=== PATIENT | female | born 1955 | race Caucasian/White ===

== ENCOUNTER 2019-08-13 12:19 | Emergency (ER) | payer MEDICARE, SELFPAY ==
--- NOTE | ~2019-08-13 | XR_ITS ---
EXAMINATION: XR femur RT min 2V DATE: 08/13/2019 13:08 INDICATION: Right thigh pain. TECHNIQUE: 2 views of right femur on 4 radiographs were obtained. COMPARISON: None. FINDINGS: Bone alignment is normal. No fracture. There is mild osteoarthritis of patellofemoral moira rtment of the knee. IMPRESSION: 1. No fracture. 2. Mild right knee osteoarthritis. Reviewed, dictated and finalized at location A.
--- NOTE | ~2019-08-13 | XR_ITS ---
EXAMINATION: XR pelvis 1-2V DATE: 08/13/2019 13:08 INDICATION: Right hip pain. TECHNIQUE: An anteroposterior view of the pelvis was obtained. COMPARISON: None. FINDINGS: Bone alignment is normal. No fracture. There is mild lumbar spondylosis. The hip joint spac es are normal. IMPRESSION: 1. No fracture. Reviewed, dictated and finalized at location A. IMPRESSION: 1. No fracture.
[2019-08-13 12:21] VITALS: BP 146/57; PULSE 81; RESP 16; TEMP 36.8; O2SAT 99
[2019-08-13 12:25] VITALS: BP 146/57; O2SAT 99
[2019-08-13 12:26] VITALS: PULSE 81; RESP 17; O2SAT 100
--- NOTE | 2019-08-13 12:40 | ED.GENADULT ---
HPI - General Adult General Chief complaint: Fall Stated complaint: R LEG INJURY History of Present Illness HPI narrative: Patient is a 64 y/o female complaining of right thigh after a fall approximately 30 minutes ago. She states that she fell off a landscape structure. She denies hitting her head or LOC. She has no neck pain, back pain, chest pain or abdominal pain. She describes her pain as sharp and rates it as 8/10. There is no pain radiation. Related Data Allergies Allergy/AdvReac Type Severity Reaction Status Date / Time Penicillins Allergy Unknown Verified 01/05/17 13:09 Review of Systems Constitutional: Constitutional: Denies chills, Denies fever(s), Denies headache(s) and Denies weakness Eyes: Eyes: Denies blurry vision ENT: Denies headache(s) and Denies neck pain Cardiovascular: Cardiovascular: Denies chest pain and Denies dyspnea Respiratory: Respiratory: Denies cough and Denies dyspnea Gastrointestinal: Gastrointestinal: Denies abdominal pain, Denies diarrhea, Denies nausea and Denies vomiting Genitourinary: Genitourinary: Denies hematuria and Denies dysuria Musculoskeletal: Musculoskeletal: Reports as per HPI, Denies back pain and Denies neck pain Comments: right thigh/buttock pain Neurologic: Denies headache(s) and Denies weakness [facility] Family History Family History Grandparent Family history of lung cancer Diabetes mellitus Father Family history of coronary artery disease Cerebrovascular accident Social History Social History Smoking status: Smoker, status unknown Alcohol intake: current Gender identity (if verbalized by the patient): Female Sexual Orientation (if Verbalized by the Patient): Lesbian, [place], or Homosexual Exam Const: General: no acute distress and well developed Orientation/consciousness: oriented to person, oriented to place, oriented to time and patient oriented x3 HENMT: Head: normocephalic Ears: external ears normal General nose exam: Normal external nose present Eyes: General: appearance normal, both eyes and all related structures Conjunctivae: conjunctivae normal Neck: Neck: normal visual inspection and full ROM Chest: Chest palpation & inspection: normal inspection of the chest and no tenderness Resp: Effort & Inspection: normal respiratory effort Auscultation: clear to auscultation bilaterally Cardio: Rate: regular rate Rhythm: regular rhythm GI: GI Palp: No abdominal tenderness and Yes Soft to palpation Skin: General skin exam: normal color and turgor normal Neuro: General: oriented to person, oriented to place, oriented to time and patient oriented x3 Cognition (Neuro): normal cognition Extrem: General: normal to inspection, full ROM and no pedal edema Right lower extremity: hip/thigh Details: tenderness (right thigh) Psych: Appearance: grossly normal Mental Status: mental status grossly normal Affect: normal affect Course Vital Signs Vital signs: Vital Signs Temperature 36.8 C 08/13/19 12:21 Pulse Rate 81 08/13/19 12:21 Respiratory Rate 16 08/13/19 12:21 Blood Pressure 146/57 H 08/13/19 12:21 Pulse Oximetry 99 08/13/19 12:21 Temperature 36.6 C 08/13/19 14:31 Pulse Rate 86 08/13/19 14:31 Respiratory Rate 16 08/13/19 14:31 Blood Pressure 120/53 L 08/13/19 14:31 Pulse Oximetry 100 08/13/19 14:31 Medical Decision Making Vital Signs Vital Signs: Vital Signs Temperature 36.8 C 08/13/19 12:21 Pulse Rate 81 08/13/19 12:21 Respiratory Rate 16 08/13/19 12:21 Blood Pressure 146/57 H 08/13/19 12:21 Pulse Oximetry 99 08/13/19 12:21 Temperature 36.6 C 08/13/19 14:31 Pulse Rate 86 08/13/19 14:31 Respiratory Rate 16 08/13/19 14:31 Blood Pressure 120/53 L 08/13/19 14:31 Pulse Oximetry 100 08/13/19 14:31 Discharge Plan Discharge Clinical Impression: Contusio
[2019-08-13 14:31] VITALS: BP 120/53; PULSE 86; RESP 16; TEMP 36.6; O2SAT 100
== END 2019-08-13 14:33 | disposition home or self-care (01) ==
PROVIDERS: Emergency Provider Emergency Medicine; PCP Family Medicine
DX: S70.11XA Contusion of right thigh, initial encounter (principal); W17.89XA Other fall from one level to another, initial encounter
CPT/HCPCS: 72170; 73552; 99284

== ENCOUNTER 2019-08-17 09:37 | Outpatient (CLI) | payer MEDICARE, SELFPAY ==
--- NOTE | ~2019-08-17 | MR_ITS ---
EXAMINATION: MR femur RT wo con DATE: 08/17/2019 10:43 INDICATION: Right thigh injury and pain. TECHNIQUE: Magnetic resonance imaging (MRI) of the right thigh was performed without intravenous cont rast. Sequences included axial, coronal, and sagittal STIR FSE and T1-weighted FSE. COMPARISON: Right femur radiographs 08/13/2019 FINDINGS: There is a near complete tear of the right hamstring tendon origin with hematoma. The torn tendon ends are retracted 4 cm from the ischial tuberosity. The hematoma abuts the sciatic nerve. Bon e alignment is normal. No fracture. Bone marrow signal intensity is normal. IMPRESSION: 1. Near complete tear of the right hamstring tendon origin. Reviewed, dictated and finalized at location A.
== END 2019-08-17 09:38 | disposition home or self-care (01) ==
LOC: ANHIMG 09:41
PROVIDERS: PCP Family Medicine; Visit Provider Physician Assistant Medical
DX: S79.921A Unspecified injury of right thigh, initial encounter (principal); X58.XXXA Exposure to other specified factors, initial encounter
CPT/HCPCS: 73718

== ENCOUNTER 2020-06-30 06:58 | Outpatient (CLI) | payer MEDICARE, SELFPAY ==
--- NOTE | ~2020-06-30 | MR_ITS ---
EXAMINATION: MR humerus RT wo con DATE: 06/30/2020 14:23 INDICATION: Right upper arm pain and limited range of motion post fall. TECHNIQUE: Magnetic resonance imaging (MRI) of the right upper arm/humerus was performed without intr avenous contrast. A marker was placed over the region of concern. Sequences included axial, sagittal and coronal T1-weighted FSE and fluid sensitive FSE STIR. COMPARISON: None. FINDINGS: The marker indicating the region of maximal pain is located at the lateral upper arm at the level of the distal insertion of the deltoid muscle. Bone marrow signal is normal throughout with no fracture, reactive edema or pathologic marrow replacing process. Mild to moderate osteoarthritis at the right acromioclavicular joint. Glenohumeral joint space appears normal with physiologic amount fluid. Long head biceps tendon and glenoid labrum appear unremarkable although evaluation is significantly more l imited on the larger field of view images relative to a standard MRI of the right shoulder. Musculatu re and neurovascular structures of the right upper arm appear normal. No abnormal masses or fluid col lections. No pathologically enlarged right axillary lymphadenopathy. IMPRESSION: 1. Unremarkable MRI of the right upper arm. No etiology identified for the reported pain at the later al mid to upper arm. Reviewed, dictated and finalized at location A. IMPRESSION: 1. Unremarkable MRI of the right upper arm. No etiology identified for the repo rted pain at the lateral mid to upper arm.
--- NOTE | ~2020-06-30 | US_ITS ---
EXAMINATION: US carotid duplex BI DATE: 06/30/2020 13:27 INDICATION: Dizziness and giddiness TECHNIQUE: Grayscale, color Doppler, and pulsed Doppler images of the cervical carotid arteries were obtained. The degree of vessel stenosis is placed in one of the following categories: normal, <50%, 5 0-69%, >=70% but less than near-occlusion, near-occlusion, or total occlusion. Note that percent sten osis relative to normal distal artery lumen diameter is indirectly measured from velocity measurement s as described by Felipe, et al. Radiology 2003; 229:340-346. Notes: Normal: Peak systolic velocity <125 centimeters/sec and no plaque <50%. Peak systolic velocity <125 ( EDV <40; ICA/CCA PSV ratio <2.0; used these factors only a tandem lesions or low cardiac output or co ntralateral disease) 50-69 %: PSV 125-230 (EDV 40-100; ratio 2-4) >= 70% but less than near occlusion: PSV greater than 230 (EDV > 100; ratio> 4.0) Near Occlusion: PSV that is variable; markedly narrowed lumen Occlusion: Absent flow on color/spectral Doppler and no lumen on talley scale. COMPARISON: None. FINDINGS: RIGHT: The right common carotid artery (CCA) peak systolic velocity (PSV) is 84 cm/s. The right internal car otid artery (ICA) PSV is 97 cm/s. The right ICA end-diastolic velocity (EDV) is 22 cm/s. The right IC A/CCA PSV ratio is 1.15. The external carotid artery (ECA) PSV is 127 cm/s. There is antegrade flow i n the right vertebral artery. LEFT: The left CCA PSV is 70 cm/s. The left ICA PSV is 182 cm/s. The left ICA EDV is 31 cm/s. The left ICA/ CCA PSV ratio is 2.6. The ECA PSV is 147 cm/s. There is antegrade flow in the left vertebral artery. IMPRESSION: 1. Less than 50% stenosis in the right internal carotid artery by sonographic criteria. 2. 50-69% stenosis in the left internal carotid artery by sonographic criteria. Reviewed, dictated and finalized at location A. IMPRESSION: 1. Less than 50% stenosis in the right internal carotid artery by sonographic c riteria. 2. 50-69% stenosis in the left internal carotid artery by sonographic criteria.
[2020-06-30 07:38] LABS: Basophils Absolute Auto 0.1 K/mm3 (0.0-0.1); Basophils Percent Auto 0.7 % (0.2-1.2); Eosinophils Absolute Auto 0.3 K/mm3 (0-0.3); Eosinophils Percent Auto 3.7 % (0-4.4); Hematocrit 32.8 % (37.0-47.0); Hemoglobin 10.4 g/dL (12.0-15.0); Immature Granulocyte Absolute 0.01 K/mm3 (0.00-0.031); Immature Granulocyte Percent A 0.1 % (0-0.5); Lymphocytes Absolute Auto 2.27 K/mm3 (0.9-3.2); Lymphocytes Percent Auto 27.9 % (18.3-44.2); Mean Corpuscular HGB Conc 31.7 g/dl (32-36); Mean Corpuscular Hemoglobin 25.1 pg (26-34); Mean Corpuscular Volume 79.2 fl (80-100); Mean Platelet Volume 10.4 fl (7.4-10.4); Monocytes Absolute Auto 0.6 K/mm3 (0.1-0.6); Monocytes Percent Auto 6.9 % (2.6-8.5); Neutrophils Absolute Auto 4.9 K/mm3 (1.3-6.7); Neutrophils Percent Auto 60.7 % (45.5-73.1); Platelet Count Result 202 k/mm3 (150-375); Red Blood Count 4.14 M/mm3 (4.2-5.4); Red Cell Distribution Width 14.8 % (11.5-14.5); White Blood Count 8.1 K/mm3 (4.5-10.0)
[2020-06-30 07:56] LABS: Alanine Aminotransferase 45 U/L (4-35); Albumin Level 4.6 g/dL (3.5-5.1); Alkaline Phosphatase 62 U/L (38-126); Anion Gap 7 mmol/L (8-16); Aspartate Amino Transferase 69 U/L (14-36); Bilirubin,Total 0.2 mg/dL (0.2-1.3); Blood Urea Nitrogen 18 mg/dL (7-17); Calcium 9.4 mg/dL (8.4-10.2); Carbon Dioxide 28 mmol/L (22-30); Chloride 103 mmol/L (98-107); Cholesterol 98 mg/dL (0-200); Estimated Glomerular Filt Rate 41; Glucose 120 mg/dL (65-105); HDL Direct 43 mg/dL; Sodium 138 mmol/L (137-145); Triglycerides 110 mg/dL (<150)
[2020-06-30 08:01] LABS: LDL Cholesterol Direct 34 mg/dL
[2020-06-30 08:14] LABS: Creatinine Urine 68.6 mg/dL
[2020-06-30 08:18] LABS: Microalbumin Urine Random 77.5 mg/L (0-16.7)
== END 2020-06-30 06:59 | disposition home or self-care (01) ==
PROVIDERS: PCP Family Medicine; Visit Provider Physician Assistant Medical
DX: E11.65 Type 2 diabetes mellitus with hyperglycemia (principal); R42 Dizziness and giddiness; E78.2 Mixed hyperlipidemia; Z79.4 Long term (current) use of insulin; G89.29 Other chronic pain; M79.601 Pain in right arm
CPT/HCPCS: 36415; 73218; 80053; 80061; 82043; 84443; 85025; 93880

== ENCOUNTER 2020-07-22 07:41 | Outpatient (CLI) | payer MEDICARE, SELFPAY ==
--- NOTE | ~2020-07-22 | US_ITS ---
EXAMINATION: US abdomen complete DATE: 07/22/2020 08:31 INDICATION: Elevated liver function tests TECHNIQUE: Multiple grayscale and Doppler ultrasound images of the abdomen were obtained. COMPARISON: None available FINDINGS: Bowel gas obscures visualization of the pancreas. The visualized portions of the pancreas a re unremarkable. The liver is normal with normal echogenicity and echotexture. No surface nodularity. Normal hepatopetal flow in the main portal vein. The gallbladder is surgically absent. The normal co mmon bile duct measures 4 mm. There was no sonographic Nino sign. The visualized portions of the ao rta and inferior vena cava are normal. The right kidney measures 10.6 x 4.3 x 5.6 cm. The left kidney measures 11.4 x 5.5 x 5.2 cm. The kidn eys demonstrate normal parenchymal echogenicity. There is no hydronephrosis. The spleen is normal in appearance and measures 9.8 cm. IMPRESSION: 1. No sonographic correlate for the patient's symptoms. Reviewed, dictated and finalized at location A.
[2020-07-22 08:12] LABS: Basophils Percent Auto 0.6 % (0.2-1.2); Eosinophils Absolute Auto 0.3 K/mm3 (0-0.3); Eosinophils Percent Auto 4.6 % (0-4.4); Hematocrit 30.6 % (37.0-47.0); Hemoglobin 9.4 g/dL (12.0-15.0); Immature Granulocyte Absolute 0.01 K/mm3 (0.00-0.031); Immature Granulocyte Percent A 0.2 % (0-0.5); Lymphocytes Absolute Auto 1.75 K/mm3 (0.9-3.2); Lymphocytes Percent Auto 27.5 % (18.3-44.2); Mean Corpuscular HGB Conc 30.7 g/dl (32-36); Mean Corpuscular Hemoglobin 25.1 pg (26-34); Mean Corpuscular Volume 81.6 fl (80-100); Mean Platelet Volume 10.1 fl (7.4-10.4); Monocytes Absolute Auto 0.6 K/mm3 (0.1-0.6); Monocytes Percent Auto 9.1 % (2.6-8.5); Neutrophils Absolute Auto 3.7 K/mm3 (1.3-6.7); Platelet Count Result 153 k/mm3 (150-375); Red Blood Count 3.75 M/mm3 (4.2-5.4); Red Cell Distribution Width 15.1 % (11.5-14.5); White Blood Count 6.4 K/mm3 (4.5-10.0)
[2020-07-22 08:29] LABS: Anion Gap 7 mmol/L (8-16); Blood Urea Nitrogen 26 mg/dL (7-17); Calcium 9.6 mg/dL (8.4-10.2); Carbon Dioxide 26 mmol/L (22-30); Chloride 103 mmol/L (98-107); Estimated Glomerular Filt Rate 41; Glucose 121 mg/dL (65-105); Potassium 5.4 mmol/L (3.4-5.0); Sodium 136 mmol/L (137-145)
[2020-07-22 16:21] LABS: Iron 37 ug/dL (37-170)
[2020-07-22 16:30] LABS: Percent Iron Saturation 7 % (20-50)
== END 2020-07-22 07:42 | disposition home or self-care (01) ==
PROVIDERS: PCP Family Medicine; Visit Provider Physician Assistant Medical
DX: R79.89 Other specified abnormal findings of blood chemistry (principal); D64.9 Anemia, unspecified; N28.9 Disorder of kidney and ureter, unspecified
CPT/HCPCS: 36415; 76700; 80048; 83540; 83550; 85025

== ENCOUNTER 2020-08-18 07:56 | Outpatient (CLI) | payer MEDICARE, SELFPAY ==
[2020-08-18 08:19] LABS: Basophils Percent Auto 0.6 % (0.2-1.2); Eosinophils Absolute Auto 0.3 K/mm3 (0-0.3); Eosinophils Percent Auto 4.8 % (0-4.4); Hematocrit 32.4 % (37.0-47.0); Hemoglobin 9.9 g/dL (12.0-15.0); Immature Granulocyte Absolute 0.02 K/mm3 (0.00-0.031); Immature Granulocyte Percent A 0.3 % (0-0.5); Lymphocytes Absolute Auto 1.52 K/mm3 (0.9-3.2); Lymphocytes Percent Auto 22.6 % (18.3-44.2); Mean Corpuscular HGB Conc 30.6 g/dl (32-36); Mean Corpuscular Hemoglobin 25.3 pg (26-34); Mean Corpuscular Volume 82.7 fl (80-100); Mean Platelet Volume 10.7 fl (7.4-10.4); Monocytes Absolute Auto 0.5 K/mm3 (0.1-0.6); Neutrophils Absolute Auto 4.3 K/mm3 (1.3-6.7); Neutrophils Percent Auto 63.7 % (45.5-73.1); Platelet Count Result 182 k/mm3 (150-375); Red Blood Count 3.92 M/mm3 (4.2-5.4); Red Cell Distribution Width 15.5 % (11.5-14.5); White Blood Count 6.7 K/mm3 (4.5-10.0)
[2020-08-18 08:33] LABS: Anion Gap 12 mmol/L (8-16); Blood Urea Nitrogen 13 mg/dL (7-17); Calcium 9.8 mg/dL (8.4-10.2); Carbon Dioxide 24 mmol/L (22-30); Chloride 101 mmol/L (98-107); Estimated Glomerular Filt Rate 56; Glucose 111 mg/dL (65-105); Sodium 137 mmol/L (137-145)
== END 2020-08-18 07:57 | disposition home or self-care (01) ==
PROVIDERS: PCP Family Medicine; Visit Provider Physician Assistant Medical
DX: N18.30 Chronic kidney disease, stage 3 unspecified (principal); D64.9 Anemia, unspecified
CPT/HCPCS: 36415; 80048; 85025

== ENCOUNTER → 2021-03-26 01:20 | Outpatient (CLI) | payer MEDICARE, SELFPAY ==
[2021-03-26 18:23] LABS: SARS-CoV-2 RNA PCR Negative
== END ==
PROVIDERS: PCP Family Medicine; Visit Provider Physician Assistant Medical
DX: R09.89 Other specified symptoms and signs involving the circulatory and respiratory systems (principal); Z20.822 Contact with and (suspected) exposure to COVID-19
CPT/HCPCS: C9803; U0003; U0005

== ENCOUNTER → 2021-11-20 01:47 | Outpatient (CLI) | payer MEDICARE, SELFPAY ==
[2021-11-20 11:56] LABS: SARS-CoV-2 RNA PCR Negative
== END ==
PROVIDERS: PCP Physician Assistant Medical; Visit Provider Physician Assistant Medical
DX: R68.89 Other general symptoms and signs (principal); Z20.822 Contact with and (suspected) exposure to COVID-19
CPT/HCPCS: C9803; U0003; U0005

== ENCOUNTER 2022-01-05 06:50 | Outpatient (CLI) | payer MEDICARE, SELFPAY ==
--- NOTE | ~2022-01-05 | XR_ITS ---
EXAMINATION: XR chest 2V DATE: 01/05/2022 07:16 INDICATION: Productive cough TECHNIQUE: PA and lateral views of the chest were obtained. COMPARISON: Chest radiograph dated 10/09/[address] abdomen and pelvis 01/05/2022 FINDINGS: The lungs remain clear with no focal airspace opacities, pulmonary edema, pleural effusion or pneumot horax. The cardiomediastinal silhouette is normal. Unchanged sclerotic bone island at the anterior le ft sixth rib. Cholecystectomy clips in right upper quadrant. Mild thoracic spondylosis. IMPRESSION: 1. No acute cardiopulmonary disease. Reviewed, dictated and finalized at location A. RVISOR QUILTING
[2022-01-05 07:12] LABS: Basophils Percent Auto 0.5 % (0.2-1.2); Eosinophils Absolute Auto 0.1 K/mm3 (0-0.3); Eosinophils Percent Auto 0.9 % (0-4.4); Immature Granulocyte Absolute 0.02 K/mm3 (0.00-0.031); Immature Granulocyte Percent A 0.3 % (0-0.5); Lymphocytes Percent Auto 15.7 % (18.3-44.2); Mean Corpuscular HGB Conc 27.7 g/dl (32-36); Mean Corpuscular Hemoglobin 18.4 pg (26-34); Mean Corpuscular Volume 66.4 fl (80-100); Mean Platelet Volume 9.9 fl (7.4-10.4); Monocytes Absolute Auto 0.7 K/mm3 (0.1-0.6); Neutrophils Absolute Auto 4.1 K/mm3 (1.3-6.7); Neutrophils Percent Auto 70.6 % (45.5-73.1); Platelet Count Result 148 k/mm3 (150-375); Red Blood Count 2.83 M/mm3 (4.2-5.4); Red Cell Distribution Width 20.1 % (11.5-14.5); White Blood Count 5.8 K/mm3 (4.5-10.0)
[2022-01-05 07:22] LABS: Alanine Aminotransferase 22 U/L (6-35); Albumin Level 4.1 g/dL (3.5-5.1); Alkaline Phosphatase 65 U/L (38-126); Anion Gap 12 mmol/L (8-16); Aspartate Amino Transferase 36 U/L (14-36); Bilirubin,Total 0.2 mg/dL (0.2-1.3); Blood Urea Nitrogen 15 mg/dL (7-17); Calcium 8.3 mg/dL (8.4-10.2); Carbon Dioxide 25 mmol/L (22-30); Chloride 96 mmol/L (98-107); Cholesterol 95 mg/dL (0-200); Estimated Glomerular Filt Rate > 60; Glucose 138 mg/dL (65-110); HDL Direct 45 mg/dL; Potassium 5.1 mmol/L (3.4-5.0); Sodium 133 mmol/L (137-145); Triglycerides 65 mg/dL (<150)
[2022-01-05 07:31] LABS: NT Pro B Type Natriuretic Pept 329 pg/mL (5-100)
[2022-01-05 07:33] LABS: LDL Cholesterol Direct 35 mg/dL
[2022-01-05 08:07] LABS: Creatinine Urine 47.1 mg/dL
[2022-01-05 08:07] LABS: Vitamin D 25 Hydroxy 52.4 ng/mL
[2022-01-05 08:12] LABS: MALB Creatinine Ratio 345.2 mg/g (0-30); Microalbumin Urine Random 162.6 mg/L (0-16.7)
[2022-01-05 08:42] LABS: Hematocrit 18.8 % (37.0-47.0); Hemoglobin 5.2 g/dL (12.0-15.0)
[2022-01-05 08:43] LABS: Platelet Estimate Adequate (Adequate)
[2022-01-05 08:44] LABS: Acanthocytes 1+ (NORMAL); Anisocytosis 2+ (NORMAL); Hypochromasia 2+ (NORMAL); Ovalocytes 2+ (NORMAL); Poikilocytosis 2+ (NORMAL); Tear Drop Cells 1+ (NORMAL)
[2022-01-05 08:45] LABS: Schistocytes None Seen (NORMAL)
== END 2022-01-05 06:51 | disposition home or self-care (01) ==
PROVIDERS: PCP Family Medicine; Visit Provider Physician Assistant Medical
DX: E78.2 Mixed hyperlipidemia (principal); E55.9 Vitamin D deficiency, unspecified; E56.9 Vitamin deficiency, unspecified; E11.65 Type 2 diabetes mellitus with hyperglycemia; Z79.4 Long term (current) use of insulin; I10 Essential (primary) hypertension; R06.02 Shortness of breath; R60.9 Edema, unspecified; R05.3 Chronic cough
CPT/HCPCS: 36415; 71046; 80053; 80061; 82043; 82306; 83880; 84443; 85025

== ENCOUNTER 2022-01-05 09:56 | Observation (INO) | payer MEDICARE, SELFPAY ==
[2022-01-05] VITALS (32 sets, daily range): BP systolic 101–220; BP diastolic 42–148; PULSE 79–97; RESP 16–25; TEMP 36–37.1; O2SAT 92–100; BMI 33.3
--- NOTE | ~2022-01-05 | CT_ITS ---
EXAMINATION: CT abdomen pelvis w con INDICATION: Symptomatic anemia TECHNIQUE: Computed tomographic images of the abdomen and pelvis were obtained after the administrati on of 100 cc of Omnipaque 350 intravenous contrast. The dose-length product (DLP) was 983.91 mGy-cm. Automated exposure control and iterative reconstruction technique were employed. COMPARISON: None available FINDINGS: The lung bases are clear. The heart size is normal. The gallbladder is surgically absent. T he liver, pancreas, and adrenal glands are normal. A 7 mm hypoattenuating lesion of the spleen likely represents a lymphangioma or hemangioma. The kidneys are unremarkable. There is calcified atheroscle rosis of the aorta and many of the other arteries. No pathologically enlarged abdominal or pelvic lym ph nodes are identified. There is no free intraperitoneal gas or evidence of bowel obstruction. The a ppendix is normal. There is a small right inguinal hernia containing fat. There is moderate lumbar sp ondylosis. IMPRESSION: 1. No CT correlate for the patient's symptoms. Reviewed, dictated and finalized at location B. T PRESSER
--- NOTE | 2022-01-05 10:03 | ECG_ITS ---
Measurements Intervals [place] Rate: 92 P: 64 MO: 136 QRS: 19 QRSD: 82 T: 55 QT: 337 QTc: 417 Interpretive Statements SINUS RHYTHM BASELINE ARTIFACT- I, II, III NORMAL ECG NO PREVIOUS ECG AVAILABLE FOR COMPARISON Electronically Signed On 01-05-2022 10:17:58 [facility] by Del Johnson D.O.
--- NOTE | 2022-01-05 10:12 | ED.RECABL ---
HPI - Recheck/Abnormal Lab/Rx General Chief Complaint: Recheck/Abnormal Lab/Rx <HAZEL Marcano Last Filed: 01/05/22 18:49> Stated Complaint: low hemoglobin <Chyna Maya PA-C - Last Filed: 01/05/22 18:49> Time Seen by Provider: 01/05/22 10:01 <HAZEL Marcano Last Filed: 01/05/22 18:49> Source: patient and old records reviewed <HAZEL Marcano Last Filed: 01/05/22 18:49> Mode of arrival: ambulatory <HAZEL Marcano Last Filed: 01/05/22 18:49> Limitations: no limitations <HAZEL Marcano Last Filed: 01/05/22 18:49> History of Present Illness HPI narrative: Patient is a 66-year-old female who presents the ED with report of low hemoglobin. Patient was referred to ED with report of hemoglobin of 5.2. Outpatient labs obtained this morning in computer system. Patient reports she has had a persistent cough for the last 3 weeks. She has had worsening fatigue, weakness, dizziness, lightheadedness, shortness of breath, worse with exertion over the last 3 weeks as well, which she attributed to the URI. Patient has been taking ibuprofen daily 600 mg at night for her symptoms. She denies any abdominal pain, nausea, vomiting, rectal bleeding, melena, chest pain, fevers, hemoptysis, epistaxis, hematuria. Patient last had colonoscopy 2 years ago which was normal aside from one polyp. She is a heavy smoker. She is not on any blood thinners. <HAZEL Marcano Last Filed: 01/05/22 18:49> Related Data Home Medications: Home Medications Medication Instructions Recorded Confirmed gabapentin 100 mg capsule 200 mg PO Q8H PRN pain 01/05/22 01/05/22 <HAZEL Marcano Last Filed: 01/05/22 18:49> Allergies/Adverse Reactions: Allergies Allergy/AdvReac Type Severity Reaction Status Date / Time Penicillins Allergy Unknown Unknown Verified 01/04/22 14:14 <Chyna Maya PA-C - Last Filed: 01/05/22 18:49> Review of Systems Review of Systems: CONSTITUTIONAL: Reports generalized weakness, fatigue. Denies fever, chills, or sweats. ENT: Denies epistaxis. CARDIOVASCULAR: Denies chest pain. RESPIRATORY: Reports cough, GAUTAM, dyspnea. Denies hemoptysis. GASTROINTESTINAL: Denies abdominal pain, nausea, vomiting, rectal bleeding, constipation, melena, or diarrhea. GENITOURINARY: Denies dysuria or hematuria. MUSCULOSKELETAL: Denies back pain, joint pain, or myalgia. NEUROLOGIC: Reports dizziness, lightheadedness. Denies headache, numbness, or focal weakness. <Chyna Maya PA-C - Last Filed: 01/05/22 18:49> All systems reviewed & are unremarkable except as noted in HPI and below <Chyna Maya PA-C - Last Filed: 01/05/22 18:49> [facility] Past Medical History Medical History: Medical History (Updated 01/05/22 @ 15:01 by Chyna Maya PA-C) BMI 35.0-35.9,adult Chronic kidney disease, stage 3 Depression Essential hypertension Insulin dependent type 2 diabetes mellitus Left carotid stenosis Suspected chronic obstructive pulmonary disease based on initial evaluation Tobacco abuse Transient ischemic attack <Chyna Maya PA-C - Last Filed: 01/05/22 18:49> Surgical History Surgical History: Surgical History History of cholecystectomy History of colonoscopy with polypectomy <Chyna Maya PA-C - Last Filed: 01/05/22 18:49> Family History Family History: Family History Grandparent Family history of lung cancer Diabetes mellitus Father Family history of coronary artery disease Cerebrovascular accident Mother No problems noted. Sibling No problems noted. <Chyna Maya PA-C - Last Filed: 01/05/22 18:49> Social History Social History: Social History (Reviewed 01/05/22 @ 18:44 by Chyna Benjamin
[2022-01-05] MEDS: SODIUM CHLORIDE 0.9% IV 1,000 ML 999 ML IV CONT (11:04)
[2022-01-05 11:25] LABS: INR 1.2; Prothrombin Time 14.6 Seconds (11.1-14.7)
[2022-01-05 11:26] LABS: Partial Thromboplastin Time 31.4 SECONDS (22.3-36.8)
--- NOTE | 2022-01-05 13:00 | PM.IMHP ---
H&P: HPI History of Present Illness Date/Time: 01/05/22 13:00 Chief Complaint: Abnormal lab work. Narrative: This is a very pleasant 66-year-old female smoker with diabetes, hypertension, and dyslipidemia who presented to the emergency department from home for evaluation abnormal lab work. She has not felt well for last 3 weeks with symptoms to include increasing fatigue, weakness, lightheadedness, and shortness of breath with exertion. She thought perhaps she had an upper airway infection and went to see her doctor where she had labs drawn which showed a hemoglobin and hematocrit of 5.2 in 18.8% respectively. Her stool was Hemoccult positive on exam in the ED though she has not noticed any dark stools or bright red blood in her stools. She also denies straining to have bowel movements. Last colonoscopy was 2 years ago and she had 1 polyp removed. She takes 600 milligrams ibuprofen along with 50 milligrams of diphenhydramine before at bedtime to help sleep and has done so for years. She has absolutely no epigastric or abdominal discomfort in tells me that she has ?an iron stomach.? Review of Systems Review of Systems: Twelve systems were reviewed. No fever, chills, or sweats. Weight has remained stable. No abdominal bloating or belching. No chest pain or pleuritic pain. She has been lightheaded but no near-syncope or syncope. She has chronic dyspnea on exertion and does have a chronic cough with wheezing. She was given a Trelegy inhaler recently. No formal pulmonary function tests or diagnosis of COPD. Except as documented, all other systems were reviewed and are negative. [facility] Past Medical History Medical History (Updated 01/05/22 @ 14:46 by Steph Rodriguez PA-C) BMI 35.0-35.9,adult Chronic kidney disease, stage 3 Depression Essential hypertension Insulin dependent type 2 diabetes mellitus Left carotid stenosis Suspected chronic obstructive pulmonary disease based on initial evaluation Tobacco abuse Transient ischemic attack Surgical History Surgical History (Updated 01/05/22 @ 14:39 by Steph Rodriguez PA-C) History of cholecystectomy History of colonoscopy with polypectomy Family History Family History Grandparent Family history of lung cancer Diabetes mellitus Father Family history of coronary artery disease Cerebrovascular accident Mother No problems noted. Sibling No problems noted. Social History Social History (Updated 01/05/22 @ 14:41 by Steph Rodriguez PA-C) Social History: Surrogate medical decision maker: Peg Levy, . Code status: Full code. Smoking packs per day: 2 Smoking cigarettes per day: 40.0 Years smoked: 40 Smoking pack-years: 80.00 Smoking status: Current every day smoker Tobacco type: cigarettes Additional smoking assessment comments: Heavy smoker, 2 packs of cigarettes a day for many years. Alcohol intake: current Alcohol use details: Social alcohol use in moderation. Substance use: never Substance use type: does not use Additional living arrangements comments: The patient lives with her in [place]. Additional occupation/education comments: Retired. Meds Home Medications and Allergies Home Medications Medication Instructions Recorded Confirmed Type insulin lispro 100 unit/mL See Rx Instructions subcut TID #3 10/24/19 01/04/22 Rx subcutaneous pen (Humalog KwikPen mL (U-100) Insulin) blood sugar diagnostic (OneTouch #100 ea 11/12/19 01/04/22 Rx Ultra Blue Test Strip) aspirin 81 mg tablet,delayed 81 mg PO DAILY #30 tabs 07/08/20 01/04/22 Rx release dulaglutide 1.5 mg/0.5 mL 1.5 mg (0.5 mL) subcut WEEKLY #2 mL 04/22/21 01/04/22 Rx subcutaneous pen injector (Trulicity) alprazolam 0.5 mg tablet 0.5 mg PO TID PRN anxiety #60 tabs 09/07/21 01/04/22 Rx fluoxetine 40 mg capsule 40 mg PO QAM #90 caps 09/07/21 01/04/22 Rx insulin glargi
[2022-01-05 13:03] LABS: Reticulocyte Hemoglobin Conten 16.3 pg (28.2-35.7); Reticulocyte Percent 2.96 % (0.7-4.3); Reticulocytes Absolute 0.08 B/L (32.2-175.7)
[2022-01-05] MEDS: SODIUM CHLORIDE 0.9% IV 250 ML 30 ML IV CONT (13:05)
[2022-01-05] MEDS: TUBING, BLOOD PLUM PUMP TUBING 1 EACH XX ×2 (13:06→17:03)
[2022-01-05 13:17] LABS: Transferrin 382 mg/dL (206-381)
[2022-01-05 13:23] LABS: Iron 19 ug/dL (37-170)
[2022-01-05 13:33] LABS: Percent Iron Saturation 4 % (20-50)
[2022-01-05 14:01] LABS: Ferritin 5.65 ng/mL (11.1-264)
[2022-01-05 14:26] LABS: SARS-CoV-2 RNA PCR Negative
--- NOTE | 2022-01-05 15:39 | ADMGEN ---
This patient, Trish Patel, was admitted to 3 [facility] Surg Room 315-01. Patient/family oriented to hospital policies and general routines including ID bracelet, bed and alarms, visiting hours, pain management, procedures, bathroom and other care routines, personal items, smoking policy, room service/diet, and visiting hours. Information on how to activate the Rapid Response Team has been discussed. Patient/Family are encouraged to report perceived risks to care and to ask questions if they do not understand what they are told or what they should do.
--- NOTE | 2022-01-05 15:45 | WPDGICN ---
Assessment and Plan Assessment and plan (1) Symptomatic anemia: Code(s): D64.9 - Anemia, unspecified Status: Acute Assessment and Plan: no overt gib but noted FOBT +, probably slow bleeding, also she normally uses nsaid's started on iv protonix will do egd and also colonoscopy tomorrow to check for source of gib/anemia (2) Stool guaiac positive: Code(s): R19.5 - Other fecal abnormalities Status: Acute (3) GI bleed: Qualifiers: GI bleed type/associated pathology: unspecified gastrointestinal hemorrhage type Qualified Code(s): K92.2 - Gastrointestinal hemorrhage, unspecified Code(s): K92.2 - Gastrointestinal hemorrhage, unspecified Status: Acute Assessment and Plan: getting blood transfusion scopes tomorrow trend h/h (4) Insulin dependent type 2 diabetes mellitus: Code(s): E11.9 - Type 2 diabetes mellitus without complications; Z79.4 - halfway (current) use of insulin Status: Acute (5) Chronic kidney disease, stage 3: Code(s): N18.30 - Chronic kidney disease, stage 3 unspecified Status: Acute (6) Essential hypertension: Code(s): I10 - Essential (primary) hypertension Status: Acute GI Consult Note Consult date/time: 01/05/22 15:45 Reason for consult: symptomatic anemia HPI: Trish Patel is a 66 year old female with history of diabetes, hypertension, and dyslipidemia who came here after blood work showed anemia. She says that for last 3 weeks noted increasing fatigue, weakness, lightheadedness, and shortness of breath with exertion.? She also takes ibuprofen 2-3 times a week for long time. PCP obtained blood work that showed hemoglobin and hematocrit of 5.2 in 18.8% respectively. Her stool was Hemoccult positive on exam in the ED, denies overt GIB. Last colonoscopy was 2 years ago and she had 1 polyp removed, hemorrhoids. Never had EGD, denies blood thinner. Now she is getting blood transfusion. Review of Systems Constitutional: Constitutional: Denies chills Eyes: Eyes: Denies blurry vision ENT: Reports Normal hearing present Cardiovascular: Cardiovascular: Reports lightheadedness Respiratory: Respiratory: Reports dyspnea on exertion Gastrointestinal: Gastrointestinal: Denies hematochezia Genitourinary: Genitourinary: Denies hematuria Musculoskeletal: Musculoskeletal: Denies myalgias Integumentary/Breasts: Skin/Breast: Denies rash Neurologic: Denies confusion Psychiatric: Psychiatric: Denies confusion [facility] Past Medical History Medical History (Updated 01/05/22 @ 15:01 by Chyna Maya PA-C) BMI 35.0-35.9,adult Chronic kidney disease, stage 3 Depression Essential hypertension Insulin dependent type 2 diabetes mellitus Left carotid stenosis Suspected chronic obstructive pulmonary disease based on initial evaluation Tobacco abuse Transient ischemic attack Surgical History Surgical History (Updated 01/05/22 @ 14:39 by Steph Rodriguez PA-C) History of cholecystectomy History of colonoscopy with polypectomy Family History Family History Grandparent Family history of lung cancer Diabetes mellitus Father Family history of coronary artery disease Cerebrovascular accident Mother No problems noted. Sibling No problems noted. Social History Social History (Updated 01/05/22 @ 14:41 by Steph Rodriguez PA-C) Social History: Surrogate medical decision maker: Peg Levy, . Code status: Full code. Smoking packs per day: 2 Smoking cigarettes per day: 40.0 Years smoked: 40 Smoking pack-years: 80.00 Smoking status: Current every day smoker Tobacco type: cigarettes Additional smoking assessment comments: Heavy smoker, 2 packs of cigarettes a day for many years. Alcohol intake: current Alcohol use details: Social alcohol use in moderation. Substance use: never Substance use typ
[2022-01-05 16:40] LABS: Glucose Point of Care 124 mg/dl (65-105)
[2022-01-05] MEDS: polyethylene glycoL 3350 238 GM BOTTLE PO (18:09)
[2022-01-05] MEDS: BISACODYL 5 MG TABLET EC 20 MG PO (18:09)
[2022-01-05 20:18] LABS: Glucose Point of Care 241 mg/dl (65-105)
[2022-01-05 23:02] LABS: Hematocrit 26.1 % (37.0-47.0); Hemoglobin 7.5 g/dL (12.0-15.0)
[2022-01-05 23:15] LABS: Anion Gap 11 mmol/L (8-16); Blood Urea Nitrogen 10 mg/dL (7-17); Calcium 8.6 mg/dL (8.4-10.2); Carbon Dioxide 23 mmol/L (22-30); Chloride 99 mmol/L (98-107); Estimated CRCL calculation 73 ml/min; Estimated Glomerular Filt Rate > 60; Glucose 166 mg/dL (65-110); Magnesium 1.8 mg/dL (1.6-2.3); Potassium 4.4 mmol/L (3.4-5.0); Sodium 133 mmol/L (137-145)
[2022-01-06 01:56] VITALS: BP 171/71
[2022-01-06] MEDS: FUROSEMIDE INJ 40 MG/4 ML VIAL IV PUSH (02:48)
[2022-01-06 03:13] LABS: Hematocrit 26.5 % (37.0-47.0); Hemoglobin 7.9 g/dL (12.0-15.0)
[2022-01-06 06:00] VITALS: BP 174/70; PULSE 85; RESP 18; TEMP 37; O2SAT 95
[2022-01-06 08:11] LABS: Glucose Point of Care 155 mg/dl (65-105)
[2022-01-06 08:25] LABS: Hematocrit 27.3 % (37.0-47.0); Immature Platelet Fraction Pct 5.4 % (0.9-11.2); Mean Corpuscular HGB Conc 29.3 g/dl (32-36); Mean Corpuscular Hemoglobin 21.4 pg (26-34); Mean Platelet Volume 9.9 fl (7.4-10.4); Platelet Count Result 159 k/mm3 (150-375); Red Blood Count 3.74 M/mm3 (4.2-5.4); Red Cell Distribution Width 22.2 % (11.5-14.5); White Blood Count 4.7 K/mm3 (4.5-10.0)
[2022-01-06 08:40] LABS: Anion Gap 13 mmol/L (8-16); Blood Urea Nitrogen 8 mg/dL (7-17); Calcium 8.7 mg/dL (8.4-10.2); Carbon Dioxide 26 mmol/L (22-30); Chloride 99 mmol/L (98-107); Estimated CRCL calculation 65 ml/min; Estimated Glomerular Filt Rate > 60; Glucose 138 mg/dL (65-110); Potassium 4.2 mmol/L (3.4-5.0); Sodium 138 mmol/L (137-145)
[2022-01-06] MEDS: FLUoxetine HCL 20 MG CAPSULE 40 MG PO (09:26)
[2022-01-06] MEDS: lisinopriL 20 MG TABLET PO (09:26)
[2022-01-06] MEDS: ROSUVASTATIN 10 MG TABLET 40 MG PO (09:26)
[2022-01-06 11:14] LABS: Glucose Point of Care 149 mg/dl (65-105)
[2022-01-06 13:01] VITALS: BP 167/58; PULSE 87; RESP 22; TEMP 36.2; O2SAT 95
--- NOTE | 2022-01-06 13:04 | SUR.PREOP ---
Patient refuses to check blood sugar pre op.
--- NOTE | 2022-01-06 13:08 | WPDANESEPPF ---
Anes - Initial Pre Proc Eval Procedure: Operation Date: 01/06/22 15:45 Proposed Procedures p Esophagogastroduodenoscopy & Colonoscopy - Wilber Hoffman MD Date/Time: 01/06/22 13:08 Surgeon: Leslee Hernandez MD Pre Op Diagnosis: Symptomatic Anemia,GIB,Guiaic Positive Stool Patient Data Age: 66 Gender: F Height: 1.63 m Weight: 87.7 kg Last Vital Signs Temp 97.2 F L 01/06/22 13:01 Pulse 87 01/06/22 13:01 Resp 22 H 01/06/22 13:01 BP 167/58 H 01/06/22 13:01 Pulse Ox 95 01/06/22 13:01 O2 Del Method Room Air 01/06/22 13:01 Allergies Allergy/AdvReac Type Severity Reaction Status Date / Time Penicillins Allergy Unknown Unknown Verified 01/04/22 14:14 Home Medications Medication Instructions Recorded Confirmed Type insulin lispro 100 unit/mL See Rx Instructions subcut TID #3 10/24/19 01/05/22 Rx subcutaneous pen (Humalog KwikPen mL (U-100) Insulin) blood sugar diagnostic (OneTouch #100 ea 11/12/19 01/05/22 Rx Ultra Blue Test Strip) aspirin 81 mg tablet,delayed 81 mg PO DAILY #30 tabs 07/08/20 01/05/22 Rx release dulaglutide 1.5 mg/0.5 mL 1.5 mg (0.5 mL) subcut WEEKLY #2 mL 04/22/21 01/05/22 Rx subcutaneous pen injector (Trulicity) alprazolam 0.5 mg tablet 0.5 mg PO TID PRN anxiety #60 tabs 09/07/21 01/05/22 Rx fluoxetine 40 mg capsule 40 mg PO QAM #90 caps 09/07/21 01/05/22 Rx insulin glargine 100 unit/mL (3 50 unit (0.5 mL) subcut DAILY #45 09/07/21 01/05/22 Rx mL) subcutaneous pen (Lantus mL Solostar U-100 Insulin) lisinopril 10 mg tablet 20 mg PO DAILY #180 tabs 09/07/21 01/05/22 Rx metformin 1,000 mg tablet 1,000 mg PO BID #180 tabs 09/07/21 01/05/22 Rx codeine 10 mg-guaifenesin 100 mg/5 5 ml PO Q4-6H PRN cough #120 mL 12/23/21 01/05/22 Rx mL oral liquid (Guaiatussin AC) rosuvastatin 40 mg tablet (Crestor) 40 mg PO DAILY #90 tabs 12/23/21 01/05/22 Rx acetaminophen 300 mg-codeine 30 mg 1 tablet PO Q8H PRN pain #30 tabs 01/04/22 01/05/22 Rx tablet fluticasone fur. 200 mcg-umeclid 1 inh inhalation DAILY #60 ea 01/04/22 01/05/22 Rx 62.5 mcg-vilant 25 mcg inhalat.powder (Trelegy Ellipta) meloxicam 15 mg tablet 15 mg PO DAILY #30 tabs 01/04/22 01/05/22 Rx gabapentin 100 mg capsule 200 mg PO Q8H PRN pain 01/05/22 01/05/22 History Laboratory Tests 01/05/22 01/05/22 01/05/22 10:15 12:54 12:54 WBC RBC Hgb Hct MCV MCH MCHC RDW Plt Count MPV % Immature Plt Fraction Sodium Potassium Chloride Carbon Dioxide Anion Gap BUN Creatinine Estim Creat Clear Calc Estimated GFR Glucose POC Capillary Glucose Calcium Magnesium Iron 19 ug/dL L ug/dL (37-170) TIBC 507 ug/dL H ug/dL (261-462) % Saturation 4 % L % (20-50) Transferrin 382 mg/dL H mg/dL (206-381) Ferritin 5.65 ng/mL L ng/mL (11.1-264) Vitamin B12 820.0 pg/mL pg/mL (239-931) TSH 1.690 uIU/mL uIU/mL (0.465-4.680) SARS-CoV-2 RNA (RT-PCR) Blood Type A Positive Antibody Screen Negative Crossmatch See Detail 01/05/22 01/05/22 01/05/22 13:35 16:33 20:05 WBC RBC Hgb Hct MCV MCH MCHC RDW Plt Count MPV % Immature Plt Fraction Sodium Potassium Chloride Carbon Dioxide Anion Gap BUN Creatinine Estim Creat Clear Calc Estimated GFR Glucose POC Capillary Glucose 124 mg/dl H mg/dl 241 mg/dl H mg/dl (65-105)
[2022-01-06] MEDS: BENZOCAINE (*SP) 60 ML SPRAY CAN (HURRICAINE) 1 SPRAY MUCOUS MEM (13:27)
[2022-01-06] MEDS: LACTATED RINGERS 1,000 ML 150 ML IV CONT (13:58)
[2022-01-06 14:00] VITALS: BP 155/59; BP 180/62; PULSE 86; PULSE 94; RESP 20; RESP 21; TEMP 36.1; O2SAT 100; O2SAT 94
--- NOTE | 2022-01-06 14:00 | SUR.OPER ---
EGD START 1331, END 1333 COLONOSCOPY START 1339, END 1358
[2022-01-06 14:10] VITALS: BP 169/74; PULSE 96; RESP 18; O2SAT 98
[2022-01-06 14:18] LABS: Glucose Point of Care 150 mg/dl (65-105)
[2022-01-06 14:20] VITALS: BP 166/75; PULSE 88; RESP 21; O2SAT 96
[2022-01-06 14:42] LABS: Hematocrit 27.6 % (37.0-47.0)
--- NOTE | 2022-01-06 15:20 | PM.IMPN ---
Progress Note: A&P Assessment and Plan (1) Symptomatic anemia: Code(s): D64.9 - Anemia, unspecified Status: Acute Assessment and Plan: Pt had EGD and colonoscopy today EGD shows gastritis treat with PPI jail Advance diet to [place] diet No ibuprofen Colonoscopy shows AVM and int hemorrhoids (2) Occult GI bleeding: Code(s): R19.5 - Other fecal abnormalities Status: Acute Assessment and Plan: FOBT was positive (3) Iron deficiency anemia: Code(s): D50.9 - Iron deficiency anemia, unspecified Status: Acute Assessment and Plan: HB is 8 today continue to monitor iron panel ordered appears to be iron deficiency anemia (4) Insulin dependent type 2 diabetes mellitus: Code(s): E11.9 - Type 2 diabetes mellitus without complications; Z79.4 - director long term care (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 (5) Essential hypertension: Code(s): I10 - Essential (primary) hypertension Status: Acute Assessment and Plan: Bp is 166/75 Bp is slightly high today Stop fluids Restart patients blood pressure medications (6) Chronic kidney disease, stage 3: Code(s): N18.30 - Chronic kidney disease, stage 3 unspecified Status: Acute Assessment and Plan: Creat is 0.8 today Creat is normal (7) Suspected chronic obstructive pulmonary disease based on initial evaluation: Code(s): J44.9 - Chronic obstructive pulmonary disease, unspecified Status: Acute Assessment and Plan: Stable no symptoms of SOB or cough Continue home inhalers (8) Tobacco abuse: Code(s): Z72.0 - Tobacco use Status: Acute Assessment and Plan: Smoking cessation adviced Plan Plan rpt CBC vaughn and DC in AM Subjective Date/time seen: 01/06/22 15:20 66-year-old female smoker with diabetes, hypertension, and dyslipidemia who presented to the emergency department from home for evaluation abnormal lab work. Pt admitted for hb of 5, symptomatic anemia. Pt remains npo today for scopes under GI. Hb this morning is 8. EGD shows gastritis Colonoscopy shows AVM and int hemorrhoids Review of Systems Review of Systems: Fatigue weakness Exam Const: Other: Comfortable Resp: Other: Clear lung sheth Cardio: Other: Regular rate and rhythm with normal S1-S2. GI: Other: Abdomen is soft and nontender with positive bowel sounds. Extrem: Other: No cyanosis or clubbing. Trace natacha ankle edema bilaterally. Peripheral pulses intact. Psych: Other: Pleasant and friendly Objective Data Vital Signs Vital Signs: Vital Signs - 24 hr 01/05/22 16:11 01/05/22 16:54 01/05/22 17:00 Temperature 36.7 C 36.5 C 36.5 C Pulse Rate 81 83 83 Respiratory Rate 20 16 20 Blood Pressure 172/148 H 190/73 H 190/73 H Pulse Oximetry 100 100 100 Oxygen Delivery 01/05/22 17:15 01/05/22 18:15 01/05/22 18:50 Temperature 36.4 C L 36.4 C L 36.0 C L Pulse Rate 79 85 88 Respiratory Rate 20 20 20 Blood Pressure 196/73 H 191/63 H 188/75 H Pulse Oximetry 98 100 100 Oxygen Delivery 01/05/22 19:05 01/05/22 20:00 01/05/22 22:00 Temperature 36.0 C L Pulse Rate 79 Respiratory Rate 18 Blood Pressure 220/90 H 180/76 H Pulse Oximetry 98 Oxygen Delivery Room Air 01/06/22 01:56 01/06/22 06:00 01/06/22 13:01 Temperature 37.0 C 36.2 C L Pulse Rate 85 87 Respiratory Rate 18 22 H Blood Pressure 171/71 H 174/70 H 167/58 H Pulse Oximetry 95 95 Oxygen Delivery Room Air 01/06/22 14:00 01/06/22 14:10 01/06/22 14:20 Temperature Pulse Rate 94 96 88 Respiratory Rate 20 18 21 H Blood Pressure 155/59 H 169/74 H 166/75 H Pulse Oximetry 94 98 96 Oxygen Delivery Room Air Room Air Room Air 01/06/22 14:00 Temperature 36.1 C L Pulse Rate 86 Respiratory Rate 21 H Blood Pressure 180/62 H Pulse Oximetry 100 Oxygen Delivery Intake/Output Intake
--- NOTE | 2022-01-06 15:54 | PM.DS ---
DS: Admitting Diagnosis Discharge Date 01/06/2022 Admitting Diagnosis Abnormal lab work. 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 [place] diet Colonoscopy shows AVM and int hemorrhoids Hb is 8 pt to continue with ferrous sulphate at home (2) Occult GI bleeding: Code(s): R19.5 - Other fecal abnormalities Status: Acute Assessment and Plan: FOBT was positive so pt had EGD and colonscopy (3) Iron deficiency anemia: Code(s): D50.9 - Iron deficiency anemia, unspecified Status: Acute Assessment and Plan: HB is 8 today continue to monitor iron panel ordered appears to be iron deficiency anemia (4) Insulin dependent type 2 diabetes mellitus: Code(s): E11.9 - Type 2 diabetes mellitus without complications; Z79.4 - lobsterman (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 (5) Essential hypertension: Code(s): I10 - Essential (primary) hypertension Status: Acute Assessment and Plan: Bp is 166/75 likely secondary to fluids Restart patients blood pressure medications (6) Chronic kidney disease, stage 3: Code(s): N18.30 - Chronic kidney disease, stage 3 unspecified Status: Acute Assessment and Plan: Creat is 0.8 today Creat is normal (7) Suspected chronic obstructive pulmonary disease based on initial evaluation: Code(s): J44.9 - Chronic obstructive pulmonary disease, unspecified Status: Acute Assessment and Plan: Stable no symptoms of SOB or cough Continue home inhalers (8) Tobacco abuse: Code(s): Z72.0 - Tobacco use Status: Acute Assessment and Plan: Smoking cessation adviced DS: Summary Hospital Course Hospital Course: 66-year-old female smoker with diabetes, hypertension, and dyslipidemia who presented to the emergency department from home for evaluation abnormal lab work. She has not felt well for last 3 weeks with symptoms to include increasing fatigue, weakness, lightheadedness, and shortness of breath with exertion.? She thought perhaps she had an upper airway infection and? went to see her doctor where she had labs drawn which showed a hemoglobin and hematocrit of 5.2 in 18.8% respectively. Her stool was Hemoccult positive on exam in the ED though she has not noticed any dark stools or bright red blood in her stools. She also denies straining to have bowel movements. Last colonoscopy was 2 years ago and she had 1 polyp removed. She takes 600 milligrams ibuprofen along with 50 milligrams of diphenhydramine before at bedtime to help sleep and has done so for years. She has absolutely no epigastric or abdominal discomfort in tells me that she has ?an iron stomach.? Pt was seen by GI had scopes the next days see findings above pt to continue with detention PPI and cut back on smoking Time Spent with Patient Time attestation: Total time spent providing and/or coordinating discharge services: Exam Const: Other: Comfortable Resp: Other: Clear lung sheth Cardio: Other: Regular rate and rhythm with normal S1-S2. GI: Other: Abdomen is soft and nontender with positive bowel sounds. Extrem: Other: No cyanosis or clubbing. Trace natacha ankle edema bilaterally. Peripheral pulses intact. Psych: Other: Pleasant and friendly DS: Data Data Completed and Pending Pending studies at discharge: Pending at discharge 01/06/22 13:59 Surgical [PTH] Routine Labs on day of discharge: Labs from last 24 hours 01/06/22 01/06/22 01/06/22 14:32 14:14 11:12 WBC RBC Hgb 8.0 L Hct 27.6 L MCV MCH MCHC RDW Plt Count MPV % Immature Plt Fraction Sodium Potassium Chlorid
[2022-01-09 05:50] LABS: Red Blood Cell Folate >1000 ng/mL RBC (>280)
== END 2022-01-06 16:15 | disposition home or self-care (01) ==
LOC: ANHED 11:35 → ANH3MEDSUR 15:05
PROVIDERS: Internal Medicine Gastroenterology; Physician Assistant; Admitting Provider Hospitalist; Emergency Provider Emergency Medicine; PCP Family Medicine; Visit Provider Family Medicine
PROC: 0DJ08ZZ Inspection of Upper Intestinal Tract, Via Natural or Artificial Opening Endoscopic (ICD-10-PCS; CPT 43235; principal; 2022-01-06 15:45)
DX: K29.70 Gastritis, unspecified, without bleeding (principal); Q27.33 Arteriovenous malformation of digestive system vessel; K64.8 Other hemorrhoids; K92.1 Melena; D50.9 Iron deficiency anemia, unspecified; I12.9 Hypertensive chronic kidney disease with stage 1 through stage 4 chronic kidney disease, or unspecified chronic kidney disease; E11.22 Type 2 diabetes mellitus with diabetic chronic kidney disease; N18.30 Chronic kidney disease, stage 3 unspecified; D63.1 Anemia in chronic kidney disease; E78.5 Hyperlipidemia, unspecified; F32.A Depression, unspecified; J44.9 Chronic obstructive pulmonary disease, unspecified; F10.90 Alcohol use, unspecified, uncomplicated; Z20.822 Contact with and (suspected) exposure to COVID-19; F17.210 Nicotine dependence, cigarettes, uncomplicated; Z86.73 Personal history of transient ischemic attack (TIA), and cerebral infarction without residual deficits; Z86.010 Personal history of colon polyps; Z79.1 Long term (current) use of non-steroidal anti-inflammatories (NSAID); Z79.4 Long term (current) use of insulin; Z79.82 Long term (current) use of aspirin; Z79.51 Long term (current) use of inhaled steroids; Z79.84 Long term (current) use of oral hypoglycemic drugs; Z79.899 Other long term (current) drug therapy; Z83.3 Family history of diabetes mellitus; Z82.49 Family history of ischemic heart disease and other diseases of the circulatory system; Z80.1 Family history of malignant neoplasm of trachea, bronchus and lung
CPT/HCPCS: 43239; 45388; 36415; 36430; 71046; 74177; 80048; 80053; 80061; 82043; 82306; 82607; 82728; 82747; 82948; 83540; 83550; 83735; 83880; 84443; 84466; 85014; 85018; 85025; 85027; 85046; 85055; 85610; 85730; 86850; 86900; 86901; 86923; 87081; 88305; 93005; 96361; 96374; 99285; A9270; G0378; J1940; J2001; J2704; J7030; J7050; J7120; P9016; Q9967; U0003; U0005

== ENCOUNTER 2022-03-02 12:43 | Outpatient (CLI) | payer MEDICARE, SELFPAY ==
[2022-03-02 14:01] LABS: Hematocrit 31.3 % (37.0-47.0); Hemoglobin 9.6 g/dL (12.0-15.0); Mean Corpuscular HGB Conc 30.7 g/dl (32-36); Mean Corpuscular Hemoglobin 24.9 pg (26-34); Mean Corpuscular Volume 81.3 fl (80-100); Mean Platelet Volume 9.7 fl (7.4-10.4); Platelet Count Result 181 k/mm3 (150-375); Red Blood Count 3.85 M/mm3 (4.2-5.4); Red Cell Distribution Width 22.3 % (11.5-14.5); White Blood Count 5.4 K/mm3 (4.5-10.0)
[2022-03-02 14:13] LABS: Anion Gap 6 mmol/L (8-16); Blood Urea Nitrogen 11 mg/dL (7-17); Calcium 8.6 mg/dL (8.4-10.2); Carbon Dioxide 28 mmol/L (22-30); Chloride 95 mmol/L (98-107); Estimated Glomerular Filt Rate > 60; Glucose 296 mg/dL (65-110); Potassium 4.7 mmol/L (3.4-5.0); Sodium 129 mmol/L (137-145)
[2022-03-02 15:47] LABS: Eosinophils Absolute Manual 0.16 K/mm3 (0.02-0.5); Eosinophils Percent Manual 3 % (0-4); Lymphocytes Absolute Manual 0.59 K/mm3 (1.1-4.5); Monocytes Absolute Manual 0.32 K/mm3 (0.1-0.90); Monocytes Percent Manual 6 % (3-9); Neutrophils Percent Manual 80 % (46-73); Platelet Estimate Adequate (Adequate); Schistocytes None Seen (NORMAL); Total Cells Counted 100
[2022-03-02 15:48] LABS: Anisocytosis 3+ (NORMAL); Hypochromasia 1+ (NORMAL)
[2022-03-02 15:49] LABS: Ovalocytes 1+ (NORMAL)
== END 2022-03-02 12:44 | disposition home or self-care (01) ==
PROVIDERS: PCP Family Medicine; Referring Provider Internal Medicine Hematology & Oncology; Visit Provider Physician Assistant Medical
DX: D50.9 Iron deficiency anemia, unspecified (principal); D64.9 Anemia, unspecified
CPT/HCPCS: 36415; 80048; 85025

== ENCOUNTER 2022-03-15 15:46 | Outpatient (CLI) | payer MEDICARE, SELFPAY ==
[2022-03-15 15:58] LABS: Hematocrit 33.3 % (37.0-47.0); Mean Corpuscular Hemoglobin 26.1 pg (26-34); Mean Corpuscular Volume 86.9 fl (80-100); Mean Platelet Volume 10.9 fl (7.4-10.4); Platelet Count Result 195 k/mm3 (150-375); Red Blood Count 3.83 M/mm3 (4.2-5.4); Red Cell Distribution Width 19.6 % (11.5-14.5); White Blood Count 7.3 K/mm3 (4.5-10.0)
[2022-03-15 16:34] LABS: Blood Urea Nitrogen 12 mg/dL (7-17); Calcium 8.4 mg/dL (8.4-10.2); Carbon Dioxide 27 mmol/L (22-30); Estimated Glomerular Filt Rate > 60; Glucose 306 mg/dL (65-110); Iron 52 ug/dL (37-170); Potassium 4.4 mmol/L (3.4-5.0); Sodium 130 mmol/L (137-145)
[2022-03-15 16:35] LABS: Anion Gap 6 mmol/L (8-16); Chloride 97 mmol/L (98-107)
[2022-03-15 16:44] LABS: Percent Iron Saturation 10 % (20-50)
[2022-03-15 17:14] LABS: Ferritin 7.91 ng/mL (11.1-264)
== END 2022-03-15 15:47 | disposition home or self-care (01) ==
LOC: ANHLAB 15:47
PROVIDERS: PCP Family Medicine; Visit Provider Internal Medicine Hematology & Oncology
DX: E61.1 Iron deficiency (principal)
CPT/HCPCS: 36415; 80048; 82607; 82728; 83540; 83550; 85027

== ENCOUNTER 2022-09-20 13:45 | Outpatient (CLI) | payer MEDICARE, SELFPAY ==
[2022-09-20 14:14] LABS: Hematocrit 37.1 % (37.0-47.0); Hemoglobin 12.4 g/dL (12.0-15.0); Immature Platelet Fraction Pct 5.9 % (0.9-11.2); Mean Corpuscular HGB Conc 33.4 g/dl (32-36); Mean Corpuscular Hemoglobin 29.6 pg (26-34); Mean Corpuscular Volume 88.5 fl (80-100); Mean Platelet Volume 10.8 fl (7.4-10.4); Platelet Count Result 131 k/mm3 (150-375); Red Blood Count 4.19 M/mm3 (4.2-5.4); Red Cell Distribution Width 11.9 % (11.5-14.5); White Blood Count 6.1 K/mm3 (4.5-10.0)
[2022-09-20 16:25] LABS: Iron 105 ug/dL (37-170)
[2022-09-20 16:35] LABS: Percent Iron Saturation 26 % (20-50)
[2022-09-20 17:25] LABS: Vitamin B12 > 1000.0 pg/mL (239-931)
== END 2022-09-20 13:46 | disposition home or self-care (01) ==
LOC: ANHLAB 13:47
PROVIDERS: PCP Family Medicine; Visit Provider Internal Medicine Hematology & Oncology
DX: E61.1 Iron deficiency (principal)
CPT/HCPCS: 36415; 82607; 82728; 83540; 83550; 85027; 85055

== ENCOUNTER 2023-02-17 09:30 | Outpatient (RCR) | payer MEDICARE, SELFPAY ==
[2023-02-08 13:15] VITALS: BMI 33.5
[2023-02-08 13:17] VITALS: BMI 33.5
== END 2023-04-25 10:00 | disposition home or self-care (01) ==
LOC: ANHDMC 09:30
PROVIDERS: PCP Family Medicine; Visit Provider Nurse Practitioner Family
DX: E11.65 Type 2 diabetes mellitus with hyperglycemia (principal); Z79.4 Long term (current) use of insulin; Z71.89 Other specified counseling; Z71.3 Dietary counseling and surveillance
CPT/HCPCS: 97802; G0108

== ENCOUNTER 2023-03-30 09:07 | Outpatient (CLI) | payer MEDICARE, SELFPAY ==
[2023-03-30 09:40] LABS: Basophils Absolute Auto 0.1 K/mm3 (0.0-0.1); Basophils Percent Auto 0.8 % (0.2-1.2); Eosinophils Absolute Auto 0.3 K/mm3 (0-0.3); Eosinophils Percent Auto 4.4 % (0-4.4); Hematocrit 40.8 % (37.0-47.0); Hemoglobin 13.6 g/dL (12.0-15.0); Immature Granulocyte Absolute 0.01 K/mm3 (0.00-0.031); Immature Granulocyte Percent A 0.2 % (0-0.5); Lymphocytes Absolute Auto 1.35 K/mm3 (0.9-3.2); Lymphocytes Percent Auto 22.2 % (18.3-44.2); Mean Corpuscular HGB Conc 33.3 g/dl (32-36); Mean Corpuscular Hemoglobin 29.4 pg (26-34); Mean Corpuscular Volume 88.1 fl (80-100); Mean Platelet Volume 9.8 fl (7.4-10.4); Monocytes Absolute Auto 0.4 K/mm3 (0.1-0.6); Monocytes Percent Auto 6.2 % (2.6-8.5); Neutrophils Percent Auto 66.2 % (45.5-73.1); Platelet Count Result 153 k/mm3 (150-375); Red Blood Count 4.63 M/mm3 (4.2-5.4); Red Cell Distribution Width 12.1 % (11.5-14.5); White Blood Count 6.1 K/mm3 (4.5-10.0)
[2023-03-30 11:05] LABS: Iron 84 ug/dL (37-170)
[2023-03-30 11:07] LABS: Alanine Aminotransferase 51 U/L (6-35); Albumin Level 4.4 g/dL (3.5-5.1); Alkaline Phosphatase 84 U/L (38-126); Anion Gap 6 mmol/L (8-16); Aspartate Amino Transferase 46 U/L (14-36); Bilirubin,Total 0.5 mg/dL (0.2-1.3); Blood Urea Nitrogen 13 mg/dL (7-17); Calcium 9.7 mg/dL (8.4-10.2); Carbon Dioxide 31 mmol/L (22-30); Chloride 96 mmol/L (98-107); Cholesterol 210 mg/dL (0-200); Estimated Glomerular Filt Rate 55; Glucose 156 mg/dL (65-110); HDL Direct 45 mg/dL; Potassium 5.2 mmol/L (3.4-5.0); Sodium 133 mmol/L (137-145); Triglycerides 133 mg/dL (<150)
[2023-03-30 11:14] LABS: Percent Iron Saturation 22 % (20-50)
[2023-03-30 11:18] LABS: LDL Cholesterol Direct 130 mg/dL
[2023-03-30 11:23] LABS: Free T4 Free Thyroxine 1.13 ng/mL (0.78-2.19)
[2023-03-30 11:42] LABS: Creatinine Urine 93.1 mg/dL
[2023-03-30 11:46] LABS: MALB Creatinine Ratio 94.5 mg/g (0-30)
[2023-03-30 12:16] LABS: Folic Acid 9.1 ng/mL (2.76->20)
== END 2023-03-30 09:08 | disposition home or self-care (01) ==
LOC: ANHLAB 09:09
PROVIDERS: Nurse Practitioner Family; PCP Family Medicine; Visit Provider Internal Medicine Hematology & Oncology
DX: E11.65 Type 2 diabetes mellitus with hyperglycemia (principal); E56.9 Vitamin deficiency, unspecified; N18.30 Chronic kidney disease, stage 3 unspecified; R80.9 Proteinuria, unspecified; Z79.4 Long term (current) use of insulin; D64.9 Anemia, unspecified
CPT/HCPCS: 36415; 80053; 80061; 82043; 82607; 82728; 82746; 83540; 83550; 84439; 84443; 85025

== ENCOUNTER 2023-10-18 10:57 | Outpatient (CLI) | payer MEDICARE, SELFPAY ==
[2023-10-18 11:14] LABS: Basophils Absolute Auto 0.1 K/mm3 (0.0-0.1); Basophils Percent Auto 0.8 % (0.2-1.2); Eosinophils Absolute Auto 0.2 K/mm3 (0-0.3); Hematocrit 41.4 % (37.0-47.0); Hemoglobin 13.5 g/dL (12.0-15.0); Immature Granulocyte Absolute 0.02 K/mm3 (0.00-0.031); Immature Granulocyte Percent A 0.3 % (0-0.5); Lymphocytes Percent Auto 20.7 % (18.3-44.2); Mean Corpuscular HGB Conc 32.6 g/dl (32-36); Mean Corpuscular Hemoglobin 29.5 pg (26-34); Mean Corpuscular Volume 90.4 fl (80-100); Mean Platelet Volume 10.3 fl (7.4-10.4); Monocytes Absolute Auto 0.6 K/mm3 (0.1-0.6); Neutrophils Absolute Auto 4.9 K/mm3 (1.3-6.7); Neutrophils Percent Auto 67.2 % (45.5-73.1); Platelet Count Result 179 k/mm3 (150-375); Red Blood Count 4.58 M/mm3 (4.2-5.4); Red Cell Distribution Width 12.8 % (11.5-14.5); White Blood Count 7.3 K/mm3 (4.5-10.0)
[2023-10-18 12:22] LABS: Iron 73 ug/dL (37-170)
[2023-10-18 12:24] LABS: Anion Gap 12 mmol/L (4-12); Blood Urea Nitrogen 22 mg/dL (7-17); Calcium 9.2 mg/dL (8.4-10.2); Carbon Dioxide 24 mmol/L (22-30); Chloride 98 mmol/L (98-107); Estimated Glomerular Filt Rate 49; Glucose 154 mg/dL (65-110); Potassium 4.6 mmol/L (3.4-5.0); Sodium 134 mmol/L (137-145)
[2023-10-18 12:31] LABS: Percent Iron Saturation 17 % (20-50)
[2023-10-18 13:28] LABS: Folic Acid 8.1 ng/mL (2.76->20); Vitamin B12 > 1000.0 pg/mL (239-931)
== END 2023-10-18 10:58 | disposition home or self-care (01) ==
LOC: ANHLAB 10:59
PROVIDERS: PCP Family Medicine; Visit Provider Internal Medicine Hematology & Oncology
DX: D64.9 Anemia, unspecified (principal)
CPT/HCPCS: 36415; 80048; 82607; 82728; 82746; 83540; 83550; 85025

== ENCOUNTER 2023-11-02 08:59 | Outpatient (CLI) | payer MEDICARE, SELFPAY ==
--- NOTE | ~2023-11-02 | CT_ITS ---
CT Scan of the Chest without Contrast: Clinical Indication: Lung cancer screening, nicotine dependence Technique: Contiguous sections were acquired throughout the chest without intravenous contrast. Dose reduction technique was used on this scan by utilizing automated exposure control and iterative recon struction technique. The dose-length product (DLP) was 138.90 mGy-cm. Findings: There is no evidence of any significant mediastinal, hilar or axillary lymphadenopathy. There are ath erosclerotic calcifications of the aorta and coronary arteries. There is no evidence of pleural or pericardial effusion. There is a 13 mm left apical pulmonary nodule (axial images 18-20). No other pulmonary nodule seen. Images through the upper abdomen reveal no abnormalities. Impression: Lung RADS 4A: Suspicious. 3 month follow-up CT scan recommended. PET CT could also be considered. Reviewed, dictated and finalized at [facility]. Impression: Lung RADS 4A: Suspicious. 3 month follow-up CT scan recommended. PET CT could a lso be considered.
== END 2023-11-02 09:00 | disposition home or self-care (01) ==
LOC: MICIMG 09:00
PROVIDERS: PCP Family Medicine; Visit Provider Internal Medicine Hematology & Oncology
DX: Z12.2 Encounter for screening for malignant neoplasm of respiratory organs (principal); Z87.891 Personal history of nicotine dependence; R91.8 Other nonspecific abnormal finding of lung field
CPT/HCPCS: 71271

== ENCOUNTER 2024-05-24 23:45 | Observation (INO) | payer MEDICARE, SELFPAY ==
--- NOTE | ~2024-05-24 | CT_ITS ---
EXAMINATION: CT abdomen pelvis w con DATE: 05/25/2024 01:01 INDICATION: Right lower quadrant abdominal pain. TECHNIQUE: Computed tomography (CT) of the abdomen and pelvis was performed with 100 mL Omnipaque 350 intravenous contrast. Automated exposure control and iterative reconstruction technique were employe d. The dose-length product was 567.78 mGy-cm. COMPARISON: CT abdomen and pelvis 01/05/2022 FINDINGS: The visualized portions of lung bases are clear without pneumonia or pleural effusion. The heart size is normal. There are coronary artery calcifications. No pericardial effusion. The liver de monstrates surface nodularity, consistent with cirrhosis. There are changes of cholecystectomy. There is a chronic 7 mm hypodense mass in the spleen, likely granulomatous disease. The pancreas and adren al glands are normal. There is cortical thinning of the kidneys. The appendix is fluid-filled and dil ated to 14 mm with wall thickening and focally discontinuous mucosa, consistent with perforated appen dicitis. There is trace ascites in right paracolic gutter. There is a right inguinal hernia containin g fat. There are no pathologically enlarged lymph nodes. There is severe lumbar spondylosis. IMPRESSION: 1. Perforated appendicitis. 2. Cirrhosis of the liver. Reviewed, dictated and finalized at location A.
--- OUTSIDE RECORDS SUMMARY | 2024-05-24 23:48 | XMS_ITS | Clinical Summary ---
Author Organization [facility] Address [address] [place] [address] Care Team Providers Care Door Furring Installer Name Role Phone Yunior Woodard MD Primary Care Provider [phone] Allergies Active Allergy Reactions Criticality Noted Date Comments Penicillins Medications insulin lispro (HumaLOG) 100 unit/mL cartridgeIndica tions:type 2 diabetes mellitus Inject 2-10 Units under the skin 3 (three) times a day Active cyclobenzaprine (FLEXERIL) 10 mg tablet Take 10 mg by mouth 3 (three) times a day as needed Active gabapentin (NEURONTIN) 100 mg capsule Take by mouth 3 (three) times a day Active metFORMIN (GLUCOPHAGE) 1,000 mg tabletIndicatio ns:type 2 diabetes mellitus Take 1,000 mg by mouth 2 (two) times a day with meals Active acetaminophen-c odeine (TYLENOL with CODEINE #3) 300-30 mg per tablet Take 1 tablet by mouth every 4 (four) hours as needed Active ALPRAZolam (XANAX) 0.5 mg tablet Take 0.5 mg by mouth nightly as needed Active FLUoxetine (PROzac) 40 mg capsule Take 40 mg by mouth daily Active lisinopriL (PRINIVIL,ZESTR IL) 10 mg tablet Take 10 mg by mouth daily Active LANTUS 100 unit/mL (3 mL) pen for injectionIndica tions:type 2 diabetes mellitus Inject 50 Units under the skin daily before dinner 08/01/2020 Active dulaglutide (TRULICITY) 0.75 mg/0.5 mL pen injectorIndicat ions:type 2 diabetes mellitus Inject under the skin Active cholecalciferol (VITAMIN D-3) 25 mcg (1,000 unit) tablet Take 1,000 Units by mouth daily Active rosuvastatin (CRESTOR) 40 mg tablet 03/16/2021 Active Active Problems Problem Noted Date Diagnosed Date Hyperlipidemia 03/19/2021 Smoker 03/19/2021 Malignant neoplasm of colon 09/02/2020 Overview (09/02/2020): Added automatically from request for surgery [id number] Carotid stenosis 08/08/2020 Assessment & Plan (08/08/2020 8:42 AM CDT): Impression: Patient denies any weakness to 1 side of the body or the other, amaurosis fugax, or speech disturbances at this time. She complains of right neck soreness. Outside carotid shows 50% stenosis to the right external carotid artery, 50-69% stenosis to the left internal carotid artery. Plan: Discussed with patient about repeat carotid ultrasound within 1 week, and will call with results, and tentatively follow up in 6 months. Type 2 diabetes mellitus 08/08/2020 Assessment & Plan (08/08/2020 8:51 AM CDT): Continue diabetic management as per primary care provider. Hypertension 08/06/2020 Assessment & Plan (08/08/2020 8:47 AM CDT): Impression: Patient states blood pressure is stable however blood pressure in office is elevated. Plan: Advised patient to take blood pressures at home and keep a log and report to primary care provider. Continue blood pressure management as per primary care provider. Pain of foot 05/15/2014 Knee pain 01/04/2012 Osteoarthritis 01/04/2012 Osteoarthritis of knee 01/03/2012 Surgical History Surgery Date Site/Laterality Comments CHOLECYSTECTOMY Medical History Medical History Date Comments Depression Diabetes (HCC) History of TIA (transient ischemic attack) Hyperlipidemia HTN (hypertension) Type 2 diabetes mellitus (HCC) Family History Medical History Relation Name Comments Coronary artery disease Father Heart attack Father No Known Problems Mother Relation Name Status Comments Father Mother Social History Tobacco Use Types Packs/Day Years Used Date Smoking Tobacco: Every Day Cigarettes Smokeless Tobacco: Never AUDIT-C Answer Date Recorded Q1: How often do you have a drink containing alc ohol? Never 10/07/2020 Q2: How many drinks containi ng alcohol do you have on a typical day when you are drinking? Patient declined 10/07/2020 Q3: How often do you have si x or more drinks on one occasion? Never 10/07/2020 Comments No Sex and Gender Information Value Date Recorded Sex Assigned at Not on file Legal Sex Female 6:50 PM CHECKER/STOCKER Gender Identity Not on file Sexual Orientation Not on file Obstetrics History Last Filed Vital Signs Vital Sign Reading Time Taken Comments Blood Pressure 179/102 03/19/2021 8:23 AM CHECKER/STOCKER Pulse 84 03/19/2021 8:23 AM CHECKER/STOCKER Temperature 36.4 C (97.5 F) 10/07/2020 9:07 AM CDT Respiratory Rate 18 10/07/2020 9:27 AM CDT Oxygen Saturation 100% 10/07/2020 9:27 AM CDT Inhaled Oxygen Concentration - - Weight 86.2 kg (190 lb) 03/19/2021 8:23 AM CHECKER/STOCKER Height 160 cm (5' 3 ) 03/19/2021 8:23 AM CHECKER/STOCKER Body Mass Index 33.66 03/19/2021 8:23 AM CHECKER/STOCKER Plan of Treatment Not on file Insurance [facility] MEDICARE ADVANTAGE [facility] MEDICARE ADVANTAGE [facility] MEDICARE ADVANTAGE Advance Directives For more information, please contact: [phone] * Full Code (Latest Code Status on File) Date Activated Date Inactivated Comments 10/07/2020 7:18 AM 10/07/2020 1:41 PM Care Teams Door Furring Installer Relationship Specialty Start Date End Date Yunior Woodard MD PCP - General Family Medicine 07/24/20
--- OUTSIDE RECORDS SUMMARY | 2024-05-24 23:48 | XMS_ITS | Referral Summary ---
Author Organization [facility] Address [address] [place] [address] Care Team Providers Care Patient Scheduling Coordinator Name Role Phone Yunior Woodard MD Primary Care Provider [phone] Allergies Active Allergy Reactions Criticality Noted Date [...] (09/02/2020): Added automatically from request for surgery [id number] Carotid stenosis 08/08/2020 Assessment & Plan (08/08/2020 [...] 01/04/2012 Osteoarthritis 01/04/2012 Osteoarthritis of knee 01/03/2012 Social History Tobacco Use Types Packs/Day Years [...] on file Legal Sex Female 6:50 PM HISTOLOGIST TECHNOLOGIST Gender Identity Not on file Sexual Orientation Not on file Last Filed Vital Signs Vital Sign Reading Time Taken Comments Blood Pressure 179/102 03/19/2021 8:23 AM HISTOLOGIST TECHNOLOGIST Pulse 84 03/19/2021 8:23 AM HISTOLOGIST TECHNOLOGIST Temperature 36.4 C (97.5 F) 10/07/2020 9:07 AM CDT Respiratory Rate 18 10/07/2020 9:27 AM CDT Oxygen Saturation 100% 10/07/2020 9:27 AM CDT Inhaled Oxygen Concentration - - Weight 86.2 kg (190 lb) 03/19/2021 8:23 AM HISTOLOGIST TECHNOLOGIST Height 160 cm (5' 3 ) 03/19/2021 8:23 AM HISTOLOGIST TECHNOLOGIST Body Mass Index 33.66 03/19/2021 8:23 AM HISTOLOGIST TECHNOLOGIST Plan of Treatment Not on file Insurance [facility] MEDICARE ADVANTAGE [facility] MEDICARE Address: [facility] [address] [place] [address] [facility] MEDICARE ADVANTAGE [facility]IC[facility] Address: [address] [address] [place] [address] [facility] MEDICARE ADVANTAGE [facility] MEDIC[facility] Address: [address] [address] [place] [address] Advance Directives For more information, please contact: [phone] * Full Code (Latest Code Status on File) Date Activated Date Inactivated Comments 10/07/2020 7:18 AM 10/07/2020 1:41 PM Care Teams Patient Scheduling Coordinator Relationship Specialty Start Date End Date Yunior Woodard MD PCP - General Family Medicine 07/24/20
--- OUTSIDE RECORDS SUMMARY | 2024-05-24 23:48 | XMS_ITS | Clinical Summary ---
Author Organization [facility] Kelsi Lopezmatthew Address [address] [place] [address] Care Team Providers Care Transportation Maintenance Worker Name Role Phone Yunior Woodard MD Primary Care Provider [phone] Allergies Active Allergy Reactions Criticality Noted Date Comments Penicillins Unknown 02/23/2022 Medications acetaminophen-c odeine (TYLENOL #3) 300-30 mg tablet Take 1 Tablet by mouth. Active cholecalciferol , vitamin D3, 1,000 unit Take 1,000 Units by mouth daily. Active dulaglutide (TRULICITY) 0.75 mg/0.5 mL injection Inject by subcutaneous injection. Active FLUoxetine (PROzac) 40 mg capsule Take 40 mg by mouth daily. Active gabapentin (NEURONTIN) 100 mg capsule Take by mouth. Acti ve insulin glargine (Lantus Solostar U-100 Insulin) 100 unit/mL pen syringe Inject 50 Units by subcutaneous injection. Active insulin lispro (HumaLOG) 100 unit/mL cartridge Inject 2-10 Units by subcutaneous injection. Active lisinopriL (PRINIVIL) 10 mg tablet Take 10 mg by mouth daily. Active metFORMIN (GLUCOPHAGE) 1,000 mg tablet Take 1,000 mg by mouth 2 times daily. Active semaglutide (Ozempic) 0.25 mg or 0.5 mg(2 mg/1.5 mL) Pen Injector Inject by subcutaneous injection. Active dapagliflozin propanediol (Farxiga) 5 mg Tablet Take 5 mg by mouth daily. Active Active Problems No known active problems Encounters Date Type Department Care Team Description 05/16/2024 External Device Data ST[facility] ABSTRACTION Provider, Abstract 05/05/2024 External Device Data ST[facility] ABSTRACTION Provider, Abstract 05/04/2024 External Device Data [facility] ABSTRACTION Provider, Abstract 05/02/2024 External Device Data [facility] ABSTRACTION Provider, Abstract 05/02/2024 External Device Data [facility] ABSTRACTION Provider, Abstract 04/17/2024 External Device Data [facility] ABSTRACTION Provider, Abstract 03/21/2024 External Device Data [facility] ABSTRACTION Provider, Abstract 03/21/2024 External Device Data [facility] ABSTRACTION Provider, Abstract 03/14/2024 External Device Data ST[facility] ABSTRACTION Provider, Abstract from Last 3 Months Family History Medical History Relation Name Comments No Known Problems Brother No Known Problems Father No Known Problems Mother Relation Name Status Comments Brother Alive Father Alive Mother Social History Tobacco Use Types Packs/Day Years Used Date Smoking Tobacco: Every Day Cigarettes 1 55.6 Started: 10/25/1968 Smokeless Tobacco: Never Tobacco Cessation:Ready to Q uit: Not Asked; Counseling Given: Not Answered Alcohol Use Standard Drinks/Week Comments Yes 0 (1 standard drink = 0.6 oz pur e alcohol) sometimes 1 beer in 4 months Comments Unknown Sex and Gender Information Value Date Recorded Sex Assigned at Not on file Legal Sex Female 2:17 PM SOFTWARE SALES 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 Gender Identity Not on file Sexual Orientation Not on file Last Filed Vital Signs Vital Sign Reading Time Taken Comments Blood Pressure 100/60 10/24/2023 10:36 AM CDT Pulse 83 10/24/2023 10:36 AM CDT Temperature 36.5 C (97.7 F) 10/24/2023 10:36 AM CDT Respiratory Rate 18 10/24/2023 10:36 AM CDT Oxygen Saturation 97% 10/24/2023 10:36 AM CDT Inhaled Oxygen Concentration - - Weight 82.6 kg (182 lb) 10/24/2023 10:36 AM CDT Height 165.1 cm (5' 5 ) 02/23/2022 3:15 PM SOFTWARE SALES CONSULTANT Body Mass Index 30.29 02/23/2022 3:15 PM SOFTWARE SALES CONSULTANT Plan of Treatment Upcoming Encounters Date Type Department Care Team (Late st Contact Info) Description 08/20/2024 3:45 PM CDT Office Visit [facility] Oncology and Hematology - [place] [address] [place] [address] [place] [phone] Ford Langley MD [address] [place] [address] Health Maintenance Due Date Last Done Comments DIABETES ANNUAL FOOT EXAM 08/08/1973 DIABETES ANNUAL RETINAL EXAM 08/08/1973 DIABETES HBA1C Q 6 MONTHS 08/08/1973 DIABETES MICROALBUMIN ANNUAL SCREEN 08/08/1973 LDL CHOLESTEROL ANNUAL 08/08/1973 DTAP/TDAP/TD VACCINES (1 - Tdap) 08/08/1974 PNEUMOCOCCAL VACCINE 50+ YEA RS (1 of 2 - PCV) 08/08/1974 BREAST CANCER SCREENING 1995 FIT-DNA Q 3 years 08/08/2000 FIT/FOBT Q 1 year 08/08/2000 Flex Sig/CT Colonography Q 5 years 08/08/2000 Lung Cancer Screening 08/08/2005 ZOSTER VACCINE (1 of 2) 08/08/2005 RSV VACCINE (60+ or ) (1 - Risk 60-74 years 1-dose series) 2015 OSTEOPOROSIS SCREENING 08/08/2020 INFLUENZA VACCINE (#1) 2023 [place] Prev entative Visit/Annual Wellness Visit 02/29/2024 COLORECTAL SCREENING 10/07/2030 10/07/2020, 10/08/19 21 Colorectal Cancer Screening 10/07/2030 Insurance Care Teams Transportation Maintenance Worker Relationship Specialty Start Date End Date Yunior Woodard MD [address] [place] [address] PCP - General Family Practice 03/15/22
[2024-05-24 23:53] VITALS: BP 157/90; PULSE 93; RESP 14; TEMP 36.4; O2SAT 98
[2024-05-25] VITALS (13 sets, daily range): BP systolic 102–167; BP diastolic 56–96; PULSE 75–107; RESP 14–20; TEMP 36.2–37.8; O2SAT 93–100; BMI 29.0
--- OUTSIDE RECORDS SUMMARY | 2024-05-25 00:20 | XMS_ITS | Clinical Summary ---
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 Gender Identity Not on file Sexual Orientation [...] cm (5' 5 ) 02/23/2022 3:15 PM AUTO DAMAGE INSURANCE APPRAISER Body Mass Index 30.29 02/23/2022 3:15 PM AUTO DAMAGE INSURANCE APPRAISER Plan of Treatment Upcoming Encounters Date Type Department Care Team (Late st Contact Info) Description 08/20/2024 3:45 PM CDT Office Visit [facility] Oncology and Hematology - [place] [address] [place] [address] [place] [address] Ford Langley MD [address] [place] [address] Health Maintenance Due Date Last [...] 08/08/2020 INFLUENZA VACCINE (#1) 2023 [place] Prev entative Visit/Annual Wellness Visit 02/29/2024 COLORECTAL SCREENING 10/07/2030 10/07/2020, 10/08/19 21 Colorectal Cancer Screening 10/07/2030 Insurance Care Teams Horticulture/Floriculture Teacher Relationship Specialty Start Date End Date Yunior Woodard MD [address] [place] [address] PCP - General Family Practice 03/15/22
--- OUTSIDE RECORDS SUMMARY | 2024-05-25 00:20 | XMS_ITS | Referral Summary ---
Author Organization [facility] at the [facility] Address [address] [place] [address] Care Team Providers Care Yarn Carrier Name Role Phone Yunior Woodard MD Primary Care Provider [phone] Allergies Active Allergy Reactions Criticality Noted Date [...] (09/02/2020): Added automatically from request for surgery [id number] Carotid stenosis 08/08/2020 Assessment & Plan (08/08/2020 [...] on file Legal Sex Female 6:50 PM ANALYST MICROBIOLOGY LAB Gender Identity Not on file Sexual Orientation Not on file Last Filed Vital Signs Vital Sign Reading Time Taken Comments Blood Pressure 179/102 03/19/2021 8:23 AM ANALYST MICROBIOLOGY LAB Pulse 84 03/19/2021 8:23 AM ANALYST MICROBIOLOGY LAB Temperature 36.4 C (97.5 F) 10/07/2020 9:07 AM CDT Respiratory Rate 18 10/07/2020 9:27 AM CDT Oxygen Saturation 100% 10/07/2020 9:27 AM CDT Inhaled Oxygen Concentration - - Weight 86.2 kg (190 lb) 03/19/2021 8:23 AM ANALYST MICROBIOLOGY LAB Height 160 cm (5' 3 ) 03/19/2021 8:23 AM ANALYST MICROBIOLOGY LAB Body Mass Index 33.66 03/19/2021 8:23 AM ANALYST MICROBIOLOGY LAB Plan of Treatment Not on file Insurance [facility] MEDICARE ADVANTAGE [facility] Address: [facility] [address] [place] [address] [facility] MEDICARE ADVANTAGE [facility] MEDICARE Address: [address] [address] [place] [address] [facility] MEDICARE ADVANTAGE [facility] MEDIC[facility] Address: [address] [address] [place] [address] Advance Directives For more information, please contact: [phone] * Full Code (Latest Code Status on File) Date Activated Date Inactivated Comments 10/07/2020 7:18 AM 10/07/2020 1:41 PM Care Teams Yarn Carrier Relationship Specialty Start Date End Date Yunior Woodard MD PCP - General Family Medicine 07/24/20
--- OUTSIDE RECORDS SUMMARY | 2024-05-25 00:20 | XMS_ITS | Clinical Summary ---
Author Organization [facility] at the [facility] Office Center Address [address] [place] [address] Care Team Providers Care Pad Machine Operator Name Role Phone Yunior Woodard MD Primary Care Provider [phone] Allergies Active Allergy Reactions Criticality Noted Date [...] (09/02/2020): Added automatically from request for surgery [id number] Carotid stenosis 08/08/2020 Assessment & Plan (08/08/2020 [...] on file Legal Sex Female 6:50 PM DENTAL OFFICE ASSISTANT Gender Identity Not on file Sexual Orientation Not on file Obstetrics History Last Filed Vital Signs Vital Sign Reading Time Taken Comments Blood Pressure 179/102 03/19/2021 8:23 AM DENTAL OFFICE ASSISTANT Pulse 84 03/19/2021 8:23 AM DENTAL OFFICE ASSISTANT Temperature 36.4 C (97.5 F) 10/07/2020 9:07 AM CDT Respiratory Rate 18 10/07/2020 9:27 AM CDT Oxygen Saturation 100% 10/07/2020 9:27 AM CDT Inhaled Oxygen Concentration - - Weight 86.2 kg (190 lb) 03/19/2021 8:23 AM DENTAL OFFICE ASSISTANT Height 160 cm (5' 3 ) 03/19/2021 8:23 AM DENTAL OFFICE ASSISTANT Body Mass Index 33.66 03/19/2021 8:23 AM DENTAL OFFICE ASSISTANT Plan of Treatment Not on file Insurance [facility] MEDICARE ADVANTAGE [facility] MEDICARE ADVANTAGE [facility] MEDICARE ADVANTAGE Advance Directives For more information, please contact: [phone] * Full Code (Latest Code Status on File) Date Activated Date Inactivated Comments 10/07/2020 7:18 AM 10/07/2020 1:41 PM Care Teams Pad Machine Operator Relationship Specialty Start Date End Date Yunior Woodard MD PCP - General Family Medicine 07/24/20
--- NOTE | 2024-05-25 00:25 | ED_ITS ---
HPI - Abdominal Pain General Chief Complaint: Abdominal Pain <Valentina Momin PA-C - Last Filed: 05/25/24 03:15> Stated Complaint: abd pain <Valentina Momin PA-C - Last Filed: 05/25/24 03:15> Time Seen by Provider: 05/25/24 00:09 <Valentina Momin PA-C - Last Filed: 05/25/24 03:15> History of Present Illness HPI narrative: 68-year-old female with history of insulin-dependent type 2 diabetes, CKD stage 3, hypertension, hyperlipidemia presents to the ED for abdominal pain x3 days. Patient states the pain is in right lower quadrant, sharp and intermittent in nature, worse with engagement of her abdominal muscles and movement. She reports associated nausea and dry heaving but no vomiting. Denies fever, dysuria or hematuria. Reports history of cholecystectomy, no other prior abdominal surgeries. She has not taken anything for pain. <Valentina Momin PA-C - Last Filed: 05/25/24 03:15> Related Data Home Medications: Home Medications ?Medication ?Instructions ?Recorded ?Confirmed ?Last Taken ?Type gabapentin 100 mg capsule 200 mg PO Q8H PRN pain 01/05/22 01/31/24 Unknown History cholecalciferol (vitamin D3) 50 50 mcg PO DAILY 01/24/23 01/31/24 Unknown History mcg (2,000 unit) capsule diphenhydramine HCl 25 mg tablet 25 mg PO QHS PRN 01/24/23 01/31/24 Unknown History (Benadryl Allergy) magnesium oxide 500 mg capsule 500 mg PO DAILY 01/24/23 01/31/24 Unknown History zinc gluconate 50 mg tablet 50 mg PO DAILY 01/24/23 01/31/24 Unknown History <HAZEL Lovett Last Filed: 05/25/24 03:15> Allergies/Adverse Reactions: Allergies Allergy/AdvReac Type Severity Reaction Status Date / Time Penicillins Allergy Unknown Unknown Verified 05/24/24 23:47 dapagliflozin (From [facility]) AdvReac Mild Rash Verified 05/24/24 23:47 <HAZEL Lovett Last Filed: 05/25/24 03:15> Review of Systems 2 Review of Systems: All systems reviewed & are unremarkable except as noted in HPI and below <Valentina Momin PA-C - Last Filed: 05/25/24 03:15> [facility] Past Medical History Medical History: Medical History BMI 33.0-33.9,adult BMI 32.0-32.9,adult Left carotid stenosis Suspected chronic obstructive pulmonary disease based on initial evaluation Transient ischemic attack Insulin dependent type 2 diabetes mellitus Chronic kidney disease, stage 3 Tobacco abuse BMI 35.0-35.9,adult Depression Essential hypertension <Valentina Momin PA-C - Last Filed: 05/25/24 03:15> Surgical History Surgical History: Surgical History History of colonoscopy with polypectomy History of cholecystectomy <Valentina Momin PA-C - Last Filed: 05/25/24 03:15> Family History Family History: Family History Grandparent Family history of lung cancer Diabetes mellitus Father Family history of coronary artery disease Cerebrovascular accident Mother No problems noted. Sibling No problems noted. <Valentina Momin PA-C - Last Filed: 05/25/24 03:15> Social History Social History: Social History Social History: Surrogate medical decision maker: Peg Levy, . Code status: Full code. Smoking packs per day: 0.5 Smoking cigarettes per day: 10.0 Years smoked: 53 Smoking pack-years: 26.50 Smoking status: Current every day smoker Tobacco type: cigarettes Additional smoking assessment comments: Heavy smoker, 2 packs of cigarettes a day for many years. Alcohol intake: never Alcohol use details: Social alcohol use in moderation. Substance use: never Substance use type: does not use Do You Feel Safe in your Home?: Yes Lack of Transportation: No Lack of Food: Never True Current Housing: I Have Housing Concerned About Future Housing: No Difficulty Paying Gas/Electric Bills: No Difficulty Paying for Meds: YES Currently Unemployed: No Education: Trade/Vocational Certificate Difficulty w/ Childcare or Family Care: No Additional living arrangements comments: The patient lives with her in [place]. Additional occupation/education comments: Retired. Spiritual care concerns: No <Valentina Momin PA-C - Last Filed: 05/25/24 03:15> Exam 2 Narrative: GENERAL: Well-appearing, well-nourished, and in no acute distress. HEAD: Normocephalic, atraumatic. EYES: EOMI. ENT: Nares clear, no rhinorrhea or epistaxis. Mucous membranes moist. NECK: Supple. CHEST: Clear to auscultation. No respiratory distress. HEART: Regular rate and rhythm. No murmur heard. Normal peripheral pulses. ABDOMEN: Normoactive bowel sounds. Abdomen soft with tenderness and involuntary guarding in the right lower quadrant with positive rebound tenderness and psoas sign. No rigidity. No CVA tenderness. EXTREMITIES: Normal range of motion. No edema. SKIN: Warm, dry, no rash. NEURO: No focal deficits. Alert and oriented x3 <Valentina Momin PA-C - Last Filed: 05/25/24 03:15> Course Course Emergency Course: Patient signed out to me by Brigitte pending interpretation of CT scan. Is my understanding that patient has had right lower quadrant pain for 3 days, history of cholecystectomy but still has her appendix. She had been declining pain medication and nausea medication CT as below. Patient informed. She verifies understanding; states she has been toughing out the pain. Would really like a cup of coffee and a cigarette but understands neither are possible right now. Nicotine patch ordered. Discussed with Dr Concepcion who recommend Zosyn, NPO, and will go to OR later today. He states the admission him go under him or under medicine but if under him, he would like medicine consulted. Discussed with on-call hospitalist MIKAELA Allred who agrees to consultation. Admission orders placed. Stable for the floor. < Saadia Alvarado MD - Last Filed: 05/25/24 06:52> Vital Signs Vital signs: Vital Signs Temperature 97.6 F 05/24/24 23:53 Pulse Rate 93 05/24/24 23:53 Respiratory Rate 14 05/24/24 23:53 Blood Pressure 157/90 H 05/24/24 23:53 Pulse Oximetry 98 05/24/24 23:53 Oxygen Delivery Room Air 05/24/24 23:53 Temperature 97.6 F 05/24/24 23:53 Pulse Rate 86 05/25/24 05:22 Respiratory Rate 14 05/25/24 05:22 Blood Pressure 124/96 H 05/25/24 05:22 Pulse Oximetry 100 05/25/24 05:22 Oxygen Delivery Room Air 05/24/24 23:53 <Valentina Momin PA-C - Last Filed: 05/25/24 03:15> Vital Signs Temperature 97.6 F 05/24/24 23:53 Pulse Rate 93 05/24/24 23:53 Respiratory Rate 14 05/24/24 23:53 Blood Pressure 157/90 H 05/24/24 23:53 Pulse Oximetry 98 05/24/24 23:53 Oxygen Delivery Room Air 05/24/24 23:53 Temperature 97.6 F 05/24/24 23:53 Pulse Rate 86 05/25/24 05:22 Respiratory Rate 14 05/25/24 05:22 Blood Pressure 124/96 H 05/25/24 05:22 Pulse Oximetry 100 05/25/24 05:22 Oxygen Delivery Room Air 05/24/24 23:53 <Saadia Alvarado MD - Last Filed: 05/25/24 06:52> MDM - Abdominal Pain MDM Narrative Medical decision making narrative: 68-year-old female with history of insulin-dependent type 2 diabetes, CKD stage 3, hyperlipidemia, hypertension presents to the ED for abdominal pain x3 days. See HPI for further history. Triage vitals with hypertension of 157/90, otherwise unremarkable. Patient is afebrile and nontoxic appearing. Exam significant for tenderness with involuntary guarding in the right lower quadrant with rebound tenderness. Plan to obtain lab work and CT abdomen pelvis. Will provide IV fluids. I did offer antiemetics and pain medications, however patient politely declined. CBC without leukocytosis or anemia. Chemistries with a creatinine of 1.1, most recent creatinine in September of 2023 was 1.1. UA without hematuria or UTI. Lipase within normal limits. Pending CT abdomen pelvis read at time of sign-out to Dr. Alvarado. <Valentina Momin PA-C - Last Filed: 05/25/24 03:15> Lab Data Result diagrams: 05/25/24 00:22 05/25/24 00:22 <Valentina Momin PA-C - Last Filed: 05/25/24 03:15> Labs: Lab Results 05/25/24 05/25/24 Range/Units 00:22 00:33 WBC 7.5 (4.5-10.0) K/mm3 RBC 4.14 L (4.2-5.4) M/mm3 Hgb 12.3 (12.0-15.0) g/dL Hct 37.4 (37.0-47.0) % MCV 90.3 (80-100) fl MCH 29.7 (26-34) pg MCHC 32.9 (32-36) g/dl RDW 12.5 (11.5-14.5) % Plt Count 124 L (150-375) k/mm3 MPV 10.4 (7.4-10.4) fl Immature Gran % (Auto) 0.3 (0-0.5) % Neut % (Auto) 73.5 H (45.5-73.1) % Lymph % (Auto) 15.1 L (18.3-44.2) % [place] % (Auto) 7.9 (2.6-8.5) % Eos % (Auto) 2.7 (0-4.4) % Baso % (Auto) 0.5 (0.2-1.2) % Lymph # (Auto) 1.13 (0.9-3.2) K/mm3 [place] # (Auto) 0.6 (0.1-0.6) K/mm3 Eos # (Auto) 0.2 (0-0.3) K/mm3 Baso # (Auto) 0.0 (0.0-0.1) K/mm3 Abs Immat Gran (auto) 0.02 (0.00-0.031) K/mm3 Absolute Neuts (auto) 5.5 (1.3-6.7) K/mm3 Absolute Nucleated RBC 0.000 (0.0-0.012) K/mm3 Nucleated RBC % 0.0 (0.0-0.2) % % Immature Plt Fraction 3.9 (0.9-11.2) % Sodium 135 L (137-145) mmol/L Potassium 3.9 (3.4-5.0) mmol/L Chloride 102 (98-107) mmol/L Carbon Dioxide 23 (22-30) mmol/L Anion Gap 10 (4-12) mmol/L BUN 21 H (7-17) mg/dL Creatinine 1.10 H (0.7-1.0) mg/dL Estim Creat Clear Calc 44 ml/min Estimated GFR 49 L (59 - ) Glucose 140 H (65-110) mg/dL Calcium 9.0 (8.4-10.2) mg/dL Total Bilirubin 0.6 (0.2-1.3) mg/dL AST 27 (14-36) U/L ALT 19 (6-35) U/L Alkaline Phosphatase 75 (38-126) U/L Total Protein 7.0 (6.3-8.2) g/dL Albumin 4.2 (3.5-5.1) g/dL Lipase 104 (23-300) U/L Urine Color Yellow (Yellow) Urine Appearance Clear (Clear) Urine pH 6.5 (5.0-9.0) Ur Specific [place] 1.032 (1.001-1.035) Urine Protein 1+ H (Negative) mg/dL Urine Glucose (UA) 3+ H (Negative) mg/dL Urine Ketones 1+ H (Negative) mg/dL Ur Blood (Man) Negative (Negative) Urine Nitrate Negative (Negative) Urine Bilirubin Negative (Negative) Urine Urobilinogen 0.2 (<2.0) mg/dL Leukocyte Esterase Rfl Negative (Negative) AMADO/UL Urine RBC 0-2 (0-2) /hpf Urine WBC 0-5 (0-3) /hpf Ur Squamous Epith Cells None seen (Few) /hpf Urine Bacteria None seen /hpf Urine Casts 0-2 <Valentina Momin PA-C - Last Filed: 05/25/24 03:15> Lab Results 05/25/24 05/25/24 Range/Units 00:22 00:33 WBC 7.5 (4.5-10.0) K/mm3 RBC 4.14 L (4.2-5.4) M/mm3 Hgb 12.3 (12.0-15.0) g/dL Hct 37.4 (37.0-47.0) % MCV 90.3 (80-100) fl MCH 29.7 (26-34) pg MCHC 32.9 (32-36) g/dl RDW 12.5 (11.5-14.5) % Plt Count 124 L (150-375) k/mm3 MPV 10.4 (7.4-10.4) fl Immature Gran % (Auto) 0.3 (0-0.5) % Neut % (Auto) 73.5 H (45.5-73.1) % Lymph % (Auto) 15.1 L (18.3-44.2) % [place] % (Auto) 7.9 (2.6-8.5) % Eos % (Auto) 2.7 (0-4.4) % Baso % (Auto) 0.5 (0.2-1.2) % Lymph # (Auto) 1.13 (0.9-3.2) K/mm3 [place] # (Auto) 0.6 (0.1-0.6) K/mm3 Eos # (Auto) 0.2 (0-0.3) K/mm3 Baso # (Auto) 0.0 (0.0-0.1) K/mm3 Abs Immat Gran (auto) 0.02 (0.00-0.031) K/mm3 Absolute Neuts (auto) 5.5 (1.3-6.7) K/mm3 Absolute Nucleated RBC 0.000 (0.0-0.012) K/mm3 Nucleated RBC % 0.0 (0.0-0.2) % % Immature Plt Fraction 3.9 (0.9-11.2) % Sodium 135 L (137-145) mmol/L Potassium 3.9 (3.4-5.0) mmol/L Chloride 102 (98-107) mmol/L Carbon Dioxide 23 (22-30) mmol/L Anion Gap 10 (4-12) mmol/L BUN 21 H (7-17) mg/dL Creatinine 1.10 H (0.7-1.0) mg/dL Estim Creat Clear Calc 44 ml/min Estimated GFR 49 L (59 - ) Glucose 140 H (65-110) mg/dL Calcium 9.0 (8.4-10.2) mg/dL Total Bilirubin 0.6 (0.2-1.3) mg/dL AST 27 (14-36) U/L ALT 19 (6-35) U/L Alkaline Phosphatase 75 (38-126) U/L Total Protein 7.0 (6.3-8.2) g/dL Albumin 4.2 (3.5-5.1) g/dL Lipase 104 (23-300) U/L Urine Color Yellow (Yellow) Urine Appearance Clear (Clear) Urine pH 6.5 (5.0-9.0) Ur Specific [place] 1.032 (1.001-1.035) Urine Protein 1+ H (Negative) mg/dL Urine Glucose (UA) 3+ H (Negative) mg/dL Urine Ketones 1+ H (Negative) mg/dL Ur Blood (Man) Negative (Negative) Urine Nitrate Negative (Negative) Urine Bilirubin Negative (Negative) Urine Urobilinogen 0.2 (<2.0) mg/dL Leukocyte Esterase Rfl Negative (Negative) AMADO/UL Urine RBC 0-2 (0-2) /hpf Urine WBC 0-5 (0-3) /hpf Ur Squamous Epith Cells None seen (Few) /hpf Urine Bacteria None seen /hpf Urine Casts 0-2 <Saadia Alvarado MD - Last Filed: 05/25/24 06:52> Imaging Data Radiologist's impression: ITS Impressions Abdomen/Pelvis CT 05/25/24 06:32 IMPRESSION: 1. Perforated appendicitis. 2. Cirrhosis of the liver. <Valentina Momin PA-C - Last Filed: 05/25/24 03:15> ITS Impressions Abdomen/Pelvis CT 05/25/24 06:32 IMPRESSION: 1. Perforated appendicitis. 2. Cirrhosis of the liver. CT Abd Pelvis with Contrast Stat Rad: Acute appendicitis with a dilated inflamed appendix measuring up to 1.1 cm in luminal cross-sectional diameter. Associated with this is adjacent inflammatory change dependent fluid. No evidence of appendiceal perforation or abscess. No evidence of bowel obstruction or ileus. Liquid colonic contents. Findings can be seems clear diarrheal illness. Cirrhotic morphology of the liver. Cholecystectomy changes with reservoir effect. No other acute findings. <Saadia Alvarado MD - Last Filed: 05/25/24 06:52> Discharge Plan Discharge Clinical Impression: Acute appendicitis <Valentina Momin PA-C - Last Filed: 05/25/24 03:15> Patient Disposition: Still a Patient <HAZEL Lovett Last Filed: 05/25/24 03:15> Condition: Stable <HAZEL Lovett Last Filed: 05/25/24 03:15> Instructions: Antibiotic Form <HAZEL Lovett Last Filed: 05/25/24 03:15> Patient Language: Thai <HAZEL Lovett Last Filed: 05/25/24 03:15> Prescriptions: No Action metformin 500 mg tablet extended release 24 hr 500 mg PO TID Qty: 270 3RF Ozempic 2 mg/dose (8 mg/3 mL) pen injector 2 mg subcut WEEKLY 90 Days Qty: 9 3RF (DME) pen needle, diabetic [BD Ultra-Fine Berta Pen Needle] 32 gauge x 5/32 needle See Rx Instructions .ROUTE .MEDSUPPLY Qty: 100 0RF Rx Instructions: As directed for insulin pen (DME) Blood Glucose Test Strip See Rx Instructions .ROUTE .MEDSUPPLY Qty: 120 0RF Rx Instructions: AC HS (DME) blood-glucose meter Kit See Rx Instructions .ROUTE .MEDSUPPLY Qty: 1 0RF Rx Instructions: ACHS (DME) lancets Misc See Rx Instructions .ROUTE .MEDSUPPLY Qty: 100 0RF Rx Instructions: AC HS zinc gluconate 50 mg tablet 50 mg PO DAILY magnesium oxide 500 mg capsule 500 mg PO DAILY cholecalciferol (vitamin D3) 50 mcg (2,000 unit) capsule 50 mcg PO DAILY diphenhydramine HCl [Benadryl Allergy] 25 mg tablet 25 mg PO QHS PRN glucose [Dex4 Glucose] 4 gram tablet,chewable 16 g PO Q15M PRN (Reason: hypoglycemia) Qty: 60 1RF Rx Instructions: until symptoms of low blood sugar are controlled Trelegy Ellipta 100-62.5-25 mcg blister with device 1 inh inhalation DAILY Qty: 28 0RF Rx Instructions: samples insulin degludec [Tresiba FlexTouch U-100] 100 unit/mL (3 mL) insulin pen 24 unit subcut QHS Qty: 15 0RF Rx Instructions: Gets Patient Assistance gabapentin 100 mg capsule 200 mg PO Q8H PRN (Reason: pain) (DME) OneTouch Ultra Blue Test Strip Strip See Rx Instructions .ROUTE .MEDSUPPLY Qty: 100 2RF Rx Instructions: Use to test blood sugar four times aspirin 81 mg tablet,delayed release (DR/EC) 81 mg PO DAILY Qty: 30 0RF ferrous sulfate 325 mg (65 mg iron) tablet 325 mg PO TID Qty: 270 2RF (DME) insulin syringe,safety needle 0.3 mL 29 gauge x 1/2 syringe See Rx Instructions .Route Qty: 500 0RF Rx Instructions: As directed (DME) OneTouch Ultra Test Strip See Rx Instructions .Route Qty: 25 0RF Rx Instructions: use once a day to check blood sugars dapagliflozin propanediol [Farxiga] 10 mg tablet 10 mg PO QAM Qty: 90 1RF Rx Instructions: [place] [facility] fluoxetine [Prozac] 20 mg capsule 20 mg PO DAILY Qty: 90 0RF lisinopril 10 mg tablet 20 mg PO DAILY Qty: 180 1RF acetaminophen-codeine 300-30 mg tablet 1 tablet PO Q8H PRN (Reason: pain) Qty: 30 0RF <Valentina Momin PA-C - Last Filed: 05/25/24 03:15> Follow-up/Referrals: Yunior Woodard MD [Primary Care Provider] - <Valentina Momin PA-C - Last Filed: 05/25/24 03:15>
[2024-05-25 00:29] LABS: Basophils Percent Auto 0.5 % (0.2-1.2); Eosinophils Absolute Auto 0.2 K/mm3 (0-0.3); Eosinophils Percent Auto 2.7 % (0-4.4); Hematocrit 37.4 % (37.0-47.0); Hemoglobin 12.3 g/dL (12.0-15.0); Immature Granulocyte Absolute 0.02 K/mm3 (0.00-0.031); Immature Granulocyte Percent A 0.3 % (0-0.5); Immature Platelet Fraction Pct 3.9 % (0.9-11.2); Lymphocytes Absolute Auto 1.13 K/mm3 (0.9-3.2); Lymphocytes Percent Auto 15.1 % (18.3-44.2); Mean Corpuscular HGB Conc 32.9 g/dl (32-36); Mean Corpuscular Hemoglobin 29.7 pg (26-34); Mean Corpuscular Volume 90.3 fl (80-100); Mean Platelet Volume 10.4 fl (7.4-10.4); Monocytes Absolute Auto 0.6 K/mm3 (0.1-0.6); Monocytes Percent Auto 7.9 % (2.6-8.5); Neutrophils Absolute Auto 5.5 K/mm3 (1.3-6.7); Neutrophils Percent Auto 73.5 % (45.5-73.1); Platelet Count Result 124 k/mm3 (150-375); Red Blood Count 4.14 M/mm3 (4.2-5.4); Red Cell Distribution Width 12.5 % (11.5-14.5); White Blood Count 7.5 K/mm3 (4.5-10.0)
[2024-05-25 00:41] LABS: Alanine Aminotransferase 19 U/L (6-35); Albumin Level 4.2 g/dL (3.5-5.1); Alkaline Phosphatase 75 U/L (38-126); Anion Gap 10 mmol/L (4-12); Aspartate Amino Transferase 27 U/L (14-36); Bilirubin,Total 0.6 mg/dL (0.2-1.3); Blood Urea Nitrogen 21 mg/dL (7-17); Carbon Dioxide 23 mmol/L (22-30); Chloride 102 mmol/L (98-107); Estimated CRCL calculation 44 ml/min; Estimated Glomerular Filt Rate 49; Glucose 140 mg/dL (65-110); Lipase 104 U/L (23-300); Potassium 3.9 mmol/L (3.4-5.0); Sodium 135 mmol/L (137-145)
[2024-05-25 00:51] LABS: Add Urine Microscopic? YES; Appearance Urine Clear (Clear); Bacteria Urine None Seen /hpf; Bilirubin Urine Negative (Negative); Blood Urine Negative (Negative); Color Urine Yellow (Yellow); Glucose Urine UA 3+ mg/dL (Negative); Ketones Urine 1+ mg/dL (Negative); Leukocyte Esterase Ur Negative LEU/UL (Negative); Nitrate Urine Negative (Negative); Non Pathogenic Casts 0-2; Protein Urine 1+ mg/dL (Negative); RBC Urine 0-2 /hpf (0-2); Specific Grav Ur 1.032 (1.001-1.035); Squamous Epithelial Cell Urine None Seen /hpf (Few); Urobilinogen Urine 0.2 mg/dL (<2.0); WBC Urine 0-5 /hpf (0-3); pH Urine 6.5 (5.0-9.0)
[2024-05-25] MEDS: SODIUM CHLORIDE 0.9% IV 1,000 ML 999 ML IV CONT (01:32)
[2024-05-25] MEDS: ONDANSETRON INJ 4 MG/2 ML VIAL IV PUSH (01:32)
[2024-05-25] MEDS: PIPERACILLIN/TAZ 4.5G/NS 100ML 4.5 GM/100 ML BAG IVPB ×3 (06:09→17:16)
--- NOTE | 2024-05-25 07:00 | PC.NURSE ---
Report called to [facility] @[phone]
--- NOTE | 2024-05-25 07:20 | ADMGEN ---
This patient, Trish Patel, was admitted to Medical Room 258-. Patient/family oriented to hospital policies and general routines including ID bracelet, bed and alarms, visiting hours, pain management, procedures, bathroom and other care routines, personal items, smoking policy, room service/diet, and visiting hours. Information on how to activate the Rapid Response Team has been discussed. Patient/Family are encouraged to report perceived risks to care and to ask questions if they do not understand what they are told or what they should do.
[2024-05-25] MEDS: SODIUM CHLORIDE 0.9% IV 1,000 ML 125 ML IV CONT (08:31)
--- NOTE | 2024-05-25 08:50 | P.HP_ITS ---
H&P: HPI History of Present Illness Date/Time: 05/25/24 08:50 Chief Complaint: Abdominal pain Narrative: Patient is a 68-year-old woman who is an insulin-dependent diabetic. She came to the emergency room late last night with a 3 day history of sharp intermittent right lower quadrant abdominal pain. In the emergency room she was noted to have tenderness with guarding in the right lower quadrant. Her white blood cell count was 9000. Blood sugars were in the range of 140-150. She initially had a CT scan read that showed appendicitis. This was a tele radiology reading, over reading this morning shows this is a ruptured appendicitis. She has been started on IV Zosyn antibiotics and given analgesics. Plans are to proceed with laparoscopic appendectomy later today. Review of Systems Review of Systems: All systems reviewed & are unremarkable except as noted in HPI and below (HPI) REPLACED BY [facility] Past Medical History Medical History BMI 33.0-33.9,adult BMI 32.0-32.9,adult Left carotid stenosis Suspected chronic obstructive pulmonary disease based on initial evaluation Transient ischemic attack Insulin dependent type 2 diabetes mellitus Chronic kidney disease, stage 3 Tobacco abuse BMI 35.0-35.9,adult Depression Essential hypertension Surgical History Surgical History History of colonoscopy with polypectomy History of cholecystectomy Family History Family History Grandparent No problems noted. Father Family history of coronary artery disease Cerebrovascular accident Mother No problems noted. Sibling No problems noted. Social History Social History Social History: Surrogate medical decision maker: Peg Levy, . Code status: Full code. Smoking packs per day: 2.5 Smoking cigarettes per day: 50.0 Years smoked: 56 Smoking pack-years: 140.00 Smoking status: Current every day smoker Tobacco type: cigarettes Additional smoking assessment comments: Heavy smoker, 2 packs of cigarettes a day for many years. Alcohol intake: never Alcohol use details: Social alcohol use in moderation. Substance use: never Substance use type: does not use Do You Feel Safe in your Home?: Yes Lack of Transportation: No Lack of Food: Never True Current Housing: I Have Housing Concerned About Future Housing: No Difficulty Paying Gas/Electric Bills: No Difficulty Paying for Meds: No Currently Unemployed: No Education: High School Diploma/GED Difficulty w/ Childcare or Family Care: No Additional living arrangements comments: The patient lives with her in [place]. Additional occupation/education comments: Retired. Spiritual care concerns: No Meds Home Medications and Allergies Home Medications ?Medication ?Instructions ?Recorded ?Confirmed ?Type blood sugar diagnostic (OneTouch #100 ea 11/12/19 05/25/24 Rx Ultra Blue Test Strip) aspirin 81 mg tablet,delayed 81 mg PO DAILY #30 tabs 07/08/20 05/25/24 Rx release pen needle, diabetic 32 gauge x #100 ea 06/16/22 05/25/24 Rx 5/32 (BD Ultra-Fine Berta Pen Needle) blood sugar diagnostic (Blood #120 ea 06/17/22 05/25/24 Rx Glucose Test strips) blood-glucose meter #1 ea 06/17/22 05/25/24 Rx lancets #100 ea 06/17/22 05/25/24 Rx insulin syringe,safety needle 0.3 #500 ea 07/01/22 05/25/24 Rx mL 29 gauge x 1/2 cholecalciferol (vitamin D3) 50 50 mcg PO DAILY 01/24/23 05/25/24 History mcg (2,000 unit) capsule diphenhydramine HCl 25 mg tablet 25 mg PO QHS PRN sleep 01/24/23 05/25/24 History (Benadryl Allergy) glucose 4 gram chewable tablet 16 g (4 x 4 gram) PO Q15M PRN 01/24/23 05/25/24 Rx (Dex4 Glucose) hypoglycemia #60 tabs magnesium oxide 500 mg capsule 500 mg PO DAILY 01/24/23 05/25/24 History zinc gluconate 50 mg tablet 50 mg PO DAILY 01/24/23 05/25/24 History metformin 500 mg tablet,extended 500 mg PO TID #270 tabs 09/29/23 05/25/24 Rx release 24 hr semaglutide 2 mg/dose (8 mg/3 mL) 2 mg (0.75 mL) subcut WEEKLY 90 09/29/23 05/25/24 Rx subcutaneous pen injector (Ozempic) days #9 mL blood sugar diagnostic (OneTouch #25 ea 12/02/23 05/25/24 Rx Ultra Test strips) insulin degludec 100 unit/mL (3 24 unit (0.24 mL) subcut QHS #15 mL 01/31/24 05/25/24 Rx mL) subcutaneous pen (Tresiba FlexTouch U-100 insulin) dapagliflozin propanediol 10 mg 10 mg PO QAM #90 tabs 02/13/24 05/25/24 Rx tablet (Farxiga) fluoxetine 20 mg capsule (Prozac) 20 mg PO DAILY #90 caps 03/21/24 05/25/24 Rx lisinopril 10 mg tablet 20 mg (2 x 10 mg) PO DAILY #180 03/21/24 05/25/24 Rx tabs acetaminophen 300 mg-codeine 30 mg 1 tablet PO Q8H PRN pain #30 tabs 04/04/24 05/25/24 Rx tablet cyanocobalamin (vitamin B-12) 500 500 mcg PO .every other week 05/25/24 05/25/24 History mcg tablet ferrous sulfate 325 mg (65 mg 325 mg PO .3 times per week 05/25/24 05/25/24 History iron) tablet Allergies Allergy/AdvReac Type Severity Reaction Status Date / Time Penicillins Allergy Unknown Unknown Verified 05/25/24 07:52 Vital Signs Vital Signs - 24 hr 05/24/24 23:53 05/25/24 02:12 05/25/24 03:18 Temperature 36.4 C Pulse Rate 93 82 85 Respiratory Rate 14 17 14 Blood Pressure 157/90 H 136/82 Pulse Oximetry 98 99 100 Oxygen Delivery Room Air 05/25/24 05:22 05/25/24 06:50 Temperature Pulse Rate 86 75 Respiratory Rate 14 16 Blood Pressure 124/96 H 102/61 Pulse Oximetry 100 99 Oxygen Delivery Exam Const: General: comfortable, no acute distress, alert and awake HENMT: Head: normocephalic and atraumatic Mouth: Yes Normal oral and palatal mucosa present Eyes: Conjunctivae: conjunctivae normal Pupils: Equal, round and reactive pupils present EOM: EOMs intact bilaterally Neck: Neck: normal visual inspection, no lymphadenopathy and nontender Resp: Effort & Inspection: normal respiratory effort Auscultation: clear to auscultation bilaterally Cardio: Rate: regular rate Rhythm: regular rhythm Heart sounds: no gallops, no murmurs and no rubs GI: Inspection: non-distended and scar (Gallbladder) GI Palp: Yes Soft to palpation, Yes Tenderness to palpation present (GI), Yes Guarding due to palpation present (GI), No Hepatomegaly present, No Splenomegaly present and Yes Rebound tenderness present Auscultation: Hypoactive bowel sounds present Skin: Lesions: no lesions Rashes: no rashes Neuro: General: no focal motor deficits and CN's II-XI intact bilaterally Cranial nerves: Yes Equal, round and reactive pupils present, Yes Bilaterally intact EOM present, Yes facial symmetry and Yes Midline tongue present Speech: normal speech Motor exam (neuro): 5/5 motor strength present throughout and Motor abnormalities not present Extrem: General: no clubbing, cyanosis or edema and edema Psych: Affect: normal affect Thought process: Normal thought process present Insight: Good insight present (Psych) H&P: Results Labs Labs: Short CBC 05/25/24 Range/Units 00:22 WBC 7.5 (4.5-10.0) K/mm3 Hgb 12.3 (12.0-15.0) g/dL Hct 37.4 (37.0-47.0) % Plt Count 124 L (150-375) k/mm3 BMP 05/25/24 00:22 Sodium 135 L Potassium 3.9 Chloride 102 Carbon Dioxide 23 BUN 21 H Creatinine 1.10 H Glucose 140 H Calcium 9.0 Liver Function 05/25/24 Range/Units 00:22 Total Bilirubin 0.6 (0.2-1.3) mg/dL AST 27 (14-36) U/L ALT 19 (6-35) U/L Alkaline Phosphatase 75 (38-126) U/L Albumin 4.2 (3.5-5.1) g/dL Urine 05/25/24 Range/Units 00:33 Urine Color Yellow (Yellow) Urine Appearance Clear (Clear) Urine pH 6.5 (5.0-9.0) Ur Specific [place] 1.032 (1.001-1.035) Urine Protein 1+ H (Negative) mg/dL Urine Glucose (UA) 3+ H (Negative) mg/dL Assessment and Plan Assessment and plan (1) Ruptured appendicitis: Code(s): K35.32 - Acute appendicitis with perforation, localized peritonitis, and gangrene, without abscess Status: Acute Assessment and Plan: Plan to proceed with laparoscopic appendectomy under general anesthesia today. The procedure, risks, benefits and potential for conversion to open surgery I have been discussed. All questions were answered. She understands and agrees to go ahead. (2) Insulin dependent type 2 diabetes mellitus: Code(s): E11.9 - Type 2 diabetes mellitus without complications; Z79.4 - intermediate (current) use of insulin Status: Chronic Assessment and Plan: Increases surgical risks (3) Tobacco abuse: Code(s): Z72.0 - Tobacco use Status: Chronic Assessment and Plan: increases surgical risks (4) CKD (chronic kidney disease) stage 3, GFR 30-59 ml/min: Code(s): N18.30 - Chronic kidney disease, stage 3 unspecified Status: Chronic Assessment and Plan: monitor postoperatively, increases surgical risks
--- NOTE | 2024-05-25 09:58 | P.CONIM_ITS ---
Assessment and Plan Assessment and plan (1) Acute appendicitis: Code(s): K35.80 - Unspecified acute appendicitis Status: Acute Assessment and Plan: * CT perforated appendicitis * surgical services to perform laparoscopic appendectomy today 05/25/2024 * IV Zosyn * pain control * antipyretics * antiemetics * normal WBC * monitor for signs of sepsis (2) Essential hypertension: Code(s): I10 - Essential (primary) hypertension Status: Acute Assessment and Plan: * resume lisinopril post surgery * monitor BP per unit protocol (3) Insulin dependent type 2 diabetes mellitus: Code(s): E11.9 - Type 2 diabetes mellitus without complications; Z79.4 - [facility] management specialist (current) use of insulin Status: Acute Assessment and Plan: * Accu-Cheks a.c. HS * sliding scale insulin * hold oral diabetic medications/ metformin and Farxiga * resume patient's home long-acting * Diabetic diet post surgery * Optimize Sukhdeep inhibitors and statins. * Watch for hypoglycemia/hypoglycemic protocol ordered (4) CKD (chronic kidney disease) stage 3, GFR 30-59 ml/min: Code(s): N18.30 - Chronic kidney disease, stage 3 unspecified Status: Acute Assessment and Plan: * Cr 1.10 POA * IV fluids * trend (5) Iron deficiency anemia: Qualifiers: Iron deficiency anemia type: unspecified iron deficiency Qualified Code(s): D50.9 - Iron deficiency anemia, unspecified Code(s): D50.9 - Iron deficiency anemia, unspecified Status: Acute Assessment and Plan: * hemoglobin 12.3 POA stable * resume ferrous sulfate (6) Thrombocytopenia: Code(s): D69.6 - Thrombocytopenia, unspecified Status: Acute Assessment and Plan: * PLT 124 POA * could be secondary to ruptured appendicitis CT also showing cirrhosis of the liver * will likely need follow-up outpatient with painter bottom or hepatology Plan Code status: Full code per patient DVT prophylaxis: SCD Stress ulcer prophylaxis: Protonix 40 daily PT/OT notes: Ambulatory Disposition: patient was admitted to the medical unit under Surgical Services as requested hospitalist team was consulted for medical management current plan is for laparoscopic appendectomy today will continue to monitor and assist in patient care. HPI Date of Consult Consult date: 05/25/24 Requesting Physician: Kign Concepcion MD Primary Care Provider: Yunior Woodard MD Consult Narrative Reason for consult: Medical Management Narrative: Trish Patel is a 68 year old female With complaints of right lower quadrant pain which she described intermittent and sharp as well as abdominal tenderness and nausea with dry heaves but no vomiting. patient has a past medical history diabetes, CKD 3, hypertension, and hyperlipidemia. initial read on the CT scan was showing appendicitis however after further evaluation by general surgery is following the patient had a ruptured appendix. patient was then placed on IV Zosyn and NPO with plans for surgical intervention a laparoscopic appendicectomy today 05/25/2024. patient has remained afebrile and had a normal WBC upon arrival, labs reviewed showed thrombocytopenia 124 and mild DALIA with a Cr of 1.10 otherwise unremarkable. as requested for consult I will assist in managing patient's diabetes hypertension in any further medical management I can assist with. Review of Systems 2 Review of Systems: All systems reviewed & are unremarkable except as noted in HPI and below PMFSH Past Medical History Medical History BMI 33.0-33.9,adult BMI 32.0-32.9,adult Left carotid stenosis Suspected chronic obstructive pulmonary disease based on initial evaluation Transient ischemic attack Insulin dependent type 2 diabetes mellitus Chronic kidney disease, stage 3 Tobacco abuse BMI 35.0-35.9,adult Depression Essential hypertension Surgical History Surgical History History of colonoscopy with polypectomy History of cholecystectomy Family History Family History Grandparent No problems noted. Father Family history of coronary artery disease Cerebrovascular accident Mother No problems noted. Sibling No problems noted. Social History Social History Social History: Surrogate medical decision maker: Peg Levy, . Code status: Full code. Smoking packs per day: 2.5 Smoking cigarettes per day: 50.0 Years smoked: 56 Smoking pack-years: 140.00 Smoking status: Current every day smoker Tobacco type: cigarettes Additional smoking assessment comments: Heavy smoker, 2 packs of cigarettes a day for many years. Alcohol intake: never Alcohol use details: Social alcohol use in moderation. Substance use: never Substance use type: does not use Do You Feel Safe in your Home?: Yes Lack of Transportation: No Lack of Food: Never True Current Housing: I Have Housing Concerned About Future Housing: No Difficulty Paying Gas/Electric Bills: No Difficulty Paying for Meds: No Currently Unemployed: No Education: High School Diploma/GED Difficulty w/ Childcare or Family Care: No Additional living arrangements comments: The patient lives with her in [place]. Additional occupation/education comments: Retired. Spiritual care concerns: No Meds Home Medications and Allergies Home Medications ?Medication ?Instructions ?Recorded ?Confirmed ?Type blood sugar diagnostic (OneTouch #100 ea 11/12/19 05/25/24 Rx Ultra Blue Test Strip) aspirin 81 mg tablet,delayed 81 mg PO DAILY #30 tabs 07/08/20 05/25/24 Rx release pen needle, diabetic 32 gauge x #100 ea 06/16/22 05/25/24 Rx /32 (BD Ultra-Fine Berta Pen Needle) blood sugar diagnostic (Blood #120 06/17/22 05/25/24 Rx Glucose Test strips) blood-glucose meter #1 ea 06/17/22 05/25/24 Rx lancets #100 ea 06/17/22 05/25/24 Rx insulin syringe,safety needle 0.3 #500 ea 07/01/22 05/25/24 Rx mL 29 gauge x 1/2 cholecalciferol (vitamin D3) 50 50 mcg PO DAILY 01/24/23 05/25/24 History mcg (2,000 unit) capsule diphenhydramine HCl 25 mg tablet 25 mg PO QHS PRN sleep 01/24/23 05/25/24 History (Benadryl Allergy) glucose 4 gram chewable tablet 16 g (4 x 4 gram) PO Q15M PRN 01/24/23 05/25/24 Rx (Dex4 Glucose) hypoglycemia #60 tabs magnesium oxide 500 mg capsule 500 mg PO DAILY 01/24/23 05/25/24 History zinc gluconate 50 mg tablet 50 mg PO DAILY 01/24/23 05/25/24 History metformin 500 mg tablet,extended 500 mg PO TID #270 tabs 09/29/23 05/25/24 Rx release 24 hr semaglutide 2 mg/dose (8 mg/3 mL) 2 mg (0.75 mL) subcut WEEKLY 90 09/29/23 05/25/24 Rx subcutaneous pen injector (Ozempic) days #9 mL blood sugar diagnostic (OneTouch #25 ea 12/02/23 05/25/24 Rx Ultra Test strips) insulin degludec 100 unit/mL (3 24 unit (0.24 mL) subcut QHS #15 mL 01/31/24 05/25/24 Rx mL) subcutaneous pen (Tresiba FlexTouch U-100 insulin) dapagliflozin propanediol 10 mg 10 mg PO QAM #90 tabs 02/13/24 05/25/24 Rx tablet (Farxiga) fluoxetine 20 mg capsule (Prozac) 20 mg PO DAILY #90 caps 03/21/24 05/25/24 Rx lisinopril 10 mg tablet 20 mg (2 x 10 mg) PO DAILY #180 03/21/24 05/25/24 Rx tabs acetaminophen 300 mg-codeine 30 mg 1 tablet PO Q8H PRN pain #30 tabs 04/04/24 05/25/24 Rx tablet cyanocobalamin (vitamin B-12) 500 500 mcg PO .every other week 05/25/24 05/25/24 History mcg tablet ferrous sulfate 325 mg (65 mg 325 mg PO .3 times per week 05/25/24 05/25/24 History iron) tablet Allergies Allergy/AdvReac Type Severity Reaction Status Date / Time Penicillins Allergy Unknown Unknown Verified 05/25/24 07:52 Vital Signs Vital Signs - 24 hr 05/24/24 23:53 05/25/24 02:12 05/25/24 03:18 Temperature 97.6 F Pulse Rate 93 82 85 Respiratory Rate 14 17 14 Blood Pressure 157/90 H 136/82 Pulse Oximetry 98 99 100 Oxygen Delivery Room Air 05/25/24 05:22 05/25/24 06:50 Temperature Pulse Rate 86 75 Respiratory Rate 14 16 Blood Pressure 124/96 H 102/61 Pulse Oximetry 100 99 Oxygen Delivery Exam 2 Const: General: comfortable and no acute distress HENMT: Mouth: Yes moist mucous membranes Eyes: General: appearance normal, both eyes and all related structures Neck: Neck: supple Resp: Effort & Inspection: normal respiratory effort Auscultation: clear to auscultation bilaterally Cardio: Rate: regular rate Rhythm: regular rhythm GI: Other: Inspection: non-distended and scar (Gallbladder) GI Palp: Yes Soft to palpation, Yes Tenderness to palpation present (GI), Yes Guarding due to palpation present (GI), No Hepatomegaly present, No Splenomegaly present and Yes Rebound tenderness present Auscultation: Hypoactive bowel sounds present Skin: General skin exam: normal color and no rashes or lesions noted W ounds: no wounds Neuro: Speech: normal speech Extrem: General: normal to inspection Psych: Mental Status: mental status grossly normal Affect: normal affect Results Labs 05/25/24 00:22 05/25/24 00:22 Labs: Short CBC 05/25/24 Range/Units 00:22 WBC 7.5 (4.5-10.0) K/mm3 Hgb 12.3 (12.0-15.0) g/dL Hct 37.4 (37.0-47.0) % Plt Count 124 L (150-375) k/mm3 BMP 05/25/24 00:22 Sodium 135 L Potassium 3.9 Chloride 102 Carbon Dioxide 23 BUN 21 H Creatinine 1.10 H Glucose 140 H Calcium 9.0 Liver Function 05/25/24 Range/Units 00:22 Total Bilirubin 0.6 (0.2-1.3) mg/dL AST 27 (14-36) U/L ALT 19 (6-35) U/L Alkaline Phosphatase 75 (38-126) U/L Albumin 4.2 (3.5-5.1) g/dL Urine 05/25/24 Range/Units 00:33 Urine Color Yellow (Yellow) Urine Appearance Clear (Clear) Urine pH 6.5 (5.0-9.0) Ur Specific [place] 1.032 (1.001-1.035) Urine Protein 1+ H (Negative) mg/dL Urine Glucose (UA) 3+ H (Negative) mg/dL Imaging Radiologist's impression: EXAMINATION: CT abdomen pelvis w con DATE: 05/25/2024 01:01 INDICATION: Right lower quadrant abdominal pain. TECHNIQUE: Computed tomography (CT) of the abdomen and pelvis was performed with 100 mL Omnipaque 350 intravenous contrast. Automated exposure control and iterative reconstruction technique were employed. The dose-length product was 567.78 mGy-cm. COMPARISON: CT abdomen and pelvis 01/05/2022 FINDINGS: The visualized portions of lung bases are clear without pneumonia or pleural effusion. The heart size is normal. There are coronary artery calcifications. No pericardial effusion. The liver demonstrates surface nodularity, consistent with cirrhosis. There are changes of cholecystectomy. There is a chronic 7 mm hypodense mass in the spleen, likely granulomatous disease. The pancreas and adrenal glands are normal. There is cortical thinning of the kidneys. The appendix is fluid-filled and dilated to 14 mm with wall thickening and focally discontinuous mucosa, consistent with perforated appendicitis. There is trace ascites in right paracolic gutter. There is a right inguinal hernia containing fat. There are no pathologically enlarged lymph nodes. There is severe lumbar spondylosis. IMPRESSION: 1. Perforated appendicitis. 2. Cirrhosis of the liver. Quality VTE Prophylaxis VTE prophylaxis: mechanical ordered -Patient's previous records reviewed on admission -ER notes reviewed in detail on admission -discussed all findings and current treatment plan with patient/Family/POA -Consultations reviewed for recommendations -Patient's disposition for safe discharge discussed with embedded case manager Dictation performed by [employer] direct speech recognition software, therefore yarn twister variants and typographical errors may occur. Hospitalist [facility] Advance Care Plan I have confirmed that the patient's Advanced Care Plan is present, code status is documented, or surrogate decision maker is listed in patient medical record.: Yes Medication Reconciliation I have utilized all available resources to obtain, update and review the patients current medications (includes all prescriptions, OTC, herbals, cannabis, and nutritional supplements).: Yes The patient is not eligible for med reconciliation; the patient is in a emergent medical situation where delaying treatment would jeopardize the patients health.: No
--- NOTE | 2024-05-25 14:29 | WPDANESEPPF ---
Anes - Initial Pre Proc Eval Procedure: Operation Date: 05/25/24 15:30 Proposed Procedures p Laparoscopic Appendectomy - King Concepcion MD Date/Time: 05/25/24 14:29 Surgeon: King Concepcion MD Pre Op Diagnosis: acute appy Patient Data Age: 68 Gender: F Height: 1.63 m Weight: 76.8 kg Last Vital Signs Temp 37.2 C 05/25/24 14:00 Pulse 82 05/25/24 14:00 Resp 18 05/25/24 14:00 BP 138/65 05/25/24 14:00 Pulse Ox 98 05/25/24 14:00 O2 Del Method Room Air 05/24/24 23:53 Allergies Allergy/AdvReac Type Severity Reaction Status Date / Time Penicillins Allergy Unknown Unknown Verified 05/25/24 07:52 Home Medications ?Medication ?Instructions ?Recorded ?Confirmed ?Type blood sugar diagnostic (OneTouch #100 ea 11/12/19 05/25/24 Rx Ultra Blue Test Strip) aspirin 81 mg tablet,delayed 81 mg PO DAILY #30 tabs 07/08/20 05/25/24 Rx release pen needle, diabetic 32 gauge x #100 06/16/22 05/25/24 Rx 5/32 (BD Ultra-Fine Berta Pen Needle) blood sugar diagnostic (Blood #120 06/17/22 05/25/24 Rx Glucose Test strips) blood-glucose meter #1 06/17/22 05/25/24 Rx lancets #100 06/17/22 05/25/24 Rx insulin syringe,safety needle 0.3 #500 07/01/22 05/25/24 Rx mL 29 gauge x 1/2 cholecalciferol (vitamin D3) 50 50 mcg PO DAILY 01/24/23 05/25/24 History mcg (2,000 unit) capsule diphenhydramine HCl 25 mg tablet 25 mg PO QHS PRN sleep 01/24/23 05/25/24 History (Benadryl Allergy) glucose 4 gram chewable tablet 16 g (4 x 4 gram) PO Q15M PRN 01/24/23 05/25/24 Rx (Dex4 Glucose) hypoglycemia #60 tabs magnesium oxide 500 mg capsule 500 mg PO DAILY 01/24/23 05/25/24 History zinc gluconate 50 mg tablet 50 mg PO DAILY 01/24/23 05/25/24 History metformin 500 mg tablet,extended 500 mg PO TID #270 tabs 09/29/23 05/25/24 Rx release 24 hr semaglutide 2 mg/dose (8 mg/3 mL) 2 mg (0.75 mL) subcut WEEKLY 90 09/29/23 05/25/24 Rx subcutaneous pen injector (Ozempic) days #9 mL blood sugar diagnostic (OneTouch #25 ea 12/02/23 05/25/24 Rx Ultra Test strips) insulin degludec 100 unit/mL (3 24 unit (0.24 mL) subcut QHS #15 mL 01/31/24 05/25/24 Rx mL) subcutaneous pen (Tresiba FlexTouch U-100 insulin) dapagliflozin propanediol 10 mg 10 mg PO QAM #90 tabs 02/13/24 05/25/24 Rx tablet (Farxiga) fluoxetine 20 mg capsule (Prozac) 20 mg PO DAILY #90 caps 03/21/24 05/25/24 Rx lisinopril 10 mg tablet 20 mg (2 x 10 mg) PO DAILY #180 03/21/24 05/25/24 Rx tabs acetaminophen 300 mg-codeine 30 mg 1 tablet PO Q8H PRN pain #30 tabs 04/04/24 05/25/24 Rx tablet cyanocobalamin (vitamin B-12) 500 500 mcg PO .every other week 05/25/24 05/25/24 History mcg tablet ferrous sulfate 325 mg (65 mg 325 mg PO .3 times per week 05/25/24 05/25/24 History iron) tablet Laboratory Tests 05/25/24 05/25/24 00:22 00:33 WBC 7.5 K/mm3 (4.5-10.0) RBC 4.14 L M/mm3 (4.2-5.4) Hgb 12.3 g/dL (12.0-15.0) Hct 37.4 % (37.0-47.0) MCV 90.3 fl (80-100) MCH 29.7 pg (26-34) MCHC 32.9 g/dl (32-36) RDW 12.5 % (11.5-14.5) Plt Count 124 L k/mm3 (150-375) MPV 10.4 fl (7.4-10.4) Immature Gran % (Auto) 0.3 % (0-0.5) Neut % (Auto) 73.5 H % (45.5-73.1) Lymph % (Auto) 15.1 L % (18.3-44.2) Oliver % (Auto) 7.9 % (2.6-8.5) Eos % (Auto) 2.7 % (0-4.4) Baso % (Auto) 0.5 % (0.2-1.2) Lymph # (Auto) 1.13 K/mm3 (0.9-3.2) Oliver # (Auto) 0.6 K/mm3 (0.1-0.6) Eos # (Auto) 0.2 K/mm3 (0-0.3) Baso # (Auto) 0.0 K/mm3 (0.0-0.1) Abs Immat Gran (auto) 0.02 K/mm3 (0.00-0.031) Absolute Neuts (auto) 5.5 K/mm3 (1.3-6.7) Absolute Nucleated RBC 0.000 K/mm3 (0.0-0.012) Nucleated RBC % 0.0 % (0.0-0.2) % Immature Plt Fraction 3.9 % (0.9-11.2) Sodium 135 L mmol/L (137-145) Potassium 3.9 mmol/L (3.4-5.0) Chloride 102 mmol/L (98-107) Carbon Dioxide 23 mmol/L (22-30) Anion Gap 10 mmol/L (4-12) BUN 21 H mg/dL (7-17) Creatinine 1.10 H mg/dL (0.7-1.0) Estim Creat Clear Calc 44 ml/min Estimated GFR 49 L (59 - ) Glucose 140 H mg/dL (65-110) Calcium 9.0 mg/dL (8.4-10.2) Total Bilirubin 0.6 mg/dL (0.2-1.3) AST 27 U/L (14-36) ALT 19 U/L (6-35) Alkaline Phosphatase 75 U/L (38-126) Total Protein 7.0 g/dL (6.3-8.2) Albumin 4.2 g/dL (3.5-5.1) Lipase 104 U/L (23-300) Urine Color Yellow (Yellow) Urine Appearance Clear (Clear) Urine pH 6.5 (5.0-9.0) Ur Specific [place] 1.032 (1.001-1.035) Urine Protein 1+ H mg/dL (Negative) Urine Glucose (UA) 3+ H mg/dL (Negative) Urine Ketones 1+ H mg/dL (Negative) Ur Blood (Man) Negative (Negative) Urine Nitrate Negative (Negative) Urine Bilirubin Negative (Negative) Urine Urobilinogen 0.2 mg/dL (<2.0) Leukocyte Esterase Rfl Negative AMADO/UL (Negative) Urine RBC 0-2 /hpf (0-2) Urine WBC 0-5 /hpf (0-3) Ur Squamous Epith Cells None seen /hpf (Few) Urine Bacteria None seen /hpf Urine Casts 0-2 Patient hx anesthesia problems: none Family hx anesthesia problems: none Results Review: All pre-operative results and documents have been reviewed as part of the pre-operative evaluation. [facility] Past Medical History Medical History BMI 33.0-33.9,adult BMI 32.0-32.9,adult Left carotid stenosis Suspected chronic obstructive pulmonary disease based on initial evaluation Transient ischemic attack Insulin dependent type 2 diabetes mellitus Chronic kidney disease, stage 3 Tobacco abuse BMI 35.0-35.9,adult Depression Essential hypertension Surgical History Surgical History History of colonoscopy with polypectomy History of cholecystectomy Family History Family History Grandparent No problems noted. Father Family history of coronary artery disease Cerebrovascular accident Mother No problems noted. Sibling No problems noted. Social History Social History Social History: Surrogate medical decision maker: Peg Levy, . Code status: Full code. Smoking packs per day: 2.5 Smoking cigarettes per day: 50.0 Years smoked: 56 Smoking pack-years: 140.00 Smoking status: Current every day smoker Tobacco type: cigarettes Additional smoking assessment comments: Heavy smoker, 2 packs of cigarettes a day for many years. Alcohol intake: never Alcohol use details: Social alcohol use in moderation. Substance use: never Substance use type: does not use Do You Feel Safe in your Home?: Yes Lack of Transportation: No Lack of Food: Never True Current Housing: I Have Housing Concerned About Future Housing: No Difficulty Paying Gas/Electric Bills: No Difficulty Paying for Meds: No Currently Unemployed: No Education: High School Diploma/GED Difficulty w/ Childcare or Family Care: No Additional living arrangements comments: The patient lives with her in [place]. Additional occupation/education comments: Retired. Spiritual care concerns: No Anes - Eval Final PreProcedure Day of Procedure 05/25/24 14:29 Patient weight: obese Heart: regular rate and rhythm Lungs: clear to auscultation Airway: Mallampati scale class II Neurological: alert and oriented Last oral intake: >/= 8 hours ASA classification: IV Emergent: no Anesthetic plan: proceed Anesthesia type and monitoring: general ETT and standard monitoring Results Review: All pre-operative results and documents have been reviewed as part of the pre-operative evaluation. Informed Consent: The patient's anesthetic plan and its attendant risks and benefits were discussed with the patient/family/POA. Questions were solicited and answers provided to the satisfaction of the patient/family/POA.
[2024-05-25 14:38] LABS: Glucose Point of Care 132 mg/dl (65-105)
--- NOTE | 2024-05-25 14:42 | WPDHPUPDATE1 ---
History and Physical Update Update Date/Time: 05/25/24 14:42 History and Physical has been reviewed, including an updated exam of the patient. There are NO changes in the patient's condition. Risks, benefits, and alternatives have been discussed and questions answered. Patient agrees to proceed with procedure.
[2024-05-25] MEDS: LACTATED RINGERS 1,000 ML 30 ML IV CONT (16:05)
[2024-05-25 16:38] LABS: Glucose Point of Care 159 mg/dl (65-105)
[2024-05-25] MEDS: fentaNYL CITRATE INJ (*CRX) 100 MCG/2 ML VIAL 25 MCG IV PUSH ×2 (16:39→16:42)
--- NOTE | 2024-05-25 17:36 | P.OP_ITS ---
Procedure Note - Detailed Date of Procedure 05/25/24 Pre-op Diagnosis ruptured acute appendicitis Post-op Diagnosis Same Procedure Performed laparoscopic appendectomy Surgeon King Concepcion MD Stretcher Leveler Operator Alivia CASAREZ, Supriya CASAREZ Anesthesia General and Local Indications patient came to the emergency room with a 3 day history of right lower quadrant abdominal pain. She had a normal white count but was extremely tender in the right lower quadrant. She had history of nausea and vomiting. CT scan showed evidence of acute ruptured appendicitis. Findings Appendix was ruptured near its base. I did not see an abscess. Description of Procedure Patient was taken to surgery and induced into general anesthesia. The abdomen is prepped and draped. Trocars were placed in the usual fashion using applied Medical optical trocars and a 5 mm camera. The patient was placed in Trendelenburg in the right-side was elevated. Using mostly sharp dissection and some cautery, adhesions of the ascending colon to the right lateral abdominal sidewall were taken down. As we continued this process more to the pelvis, the appendix was seen. It was stuck to the lateral pelvic sidewall. I carefully dissected the appendix and the colon off the sidewall breaking up inflammatory adhesions. I did not see any collections of purulent fluid or abscess. Continued dissection of inflammatory adhesions allowed me to mobilize the appendix and elevate it anteriorly. The ruptured portion appeared to be very near the base of the appendix. I then exposed the mesoappendix. Using cautery, I carefully dissected through the mesoappendix, cauterizing structures in the mesoappendix as they were encountered. The appendiceal artery was thoroughly cauterized and divided. Eventually dissection of the mesoappendix was completed and the base of the appendix was skeletonized. A Vicryl endoloop was then used to ligate the appendix at its base, well below the perforation in the proximal appendix. I then divided the appendix just above the ligature and cauterized the mucosa of the appendiceal stump. The appendix was placed in an Endo-Catch bag and was retrieved through the 10 11 left lower quadrant trocar site. I replaced the 10 11 trocar. The appendix was sent to pathology in formalin. We then reviewed the areas of dissection, the right lower quadrant, and the pelvis. Repeated irrigation and suctioning were carried out. Some additional cautery was carried out on the mesoappendix to achieve good hemostasis. The irrigation was then starting to look quite clear. There was no sign of any further bleeding or other problems. We then evacuated CO2 and removed the trocar sleeves. Skin wounds were closed with subcuticular 4-0 Monocryl skin suture. The wounds were dressed with Exofin surgical adhesive. Patient was awakened and taken to recovery in good condition. Sponge needle counts were correct x2. Estimated Blood Loss -20 Drains No Packing No Pathology Yes ( ruptured appendix) Complications None Condition Stable Disposition PACU [facility] Billing Surgery - Charge Forward: Surgery Billing ( laparoscopic appendectomy for ru ptured appendicitis)
[2024-05-25 17:44] LABS: Glucose Point of Care 138 mg/dl (65-105)
[2024-05-25] MEDS: oxyCODONE/ACETAMINOPHEN (*CRX) 10-325 MG TABLET 1 TAB PO (19:47)
[2024-05-25] MEDS: INSULIN GLARGINE (*BKC) 100 UNITS/ML 24 UNITS SUB-Q (21:45)
[2024-05-26] VITALS (8 sets, daily range): BP systolic 114–145; BP diastolic 55–85; PULSE 72–87; RESP 16–18; TEMP 36.4–36.6; O2SAT 95–100
[2024-05-26] MEDS: oxyCODONE/ACETAMINOPHEN (*CRX) 5-325 MG TABLET 1 TABLET PO ×2 (00:03→12:23)
[2024-05-26 00:31] LABS: Glucose Point of Care 209 mg/dl (65-105)
[2024-05-26 05:13] LABS: Basophils Percent Auto 0.4 % (0.2-1.2); Eosinophils Percent Auto 0.4 % (0-4.4); Hematocrit 33.7 % (37.0-47.0); Hemoglobin 10.9 g/dL (12.0-15.0); Immature Granulocyte Absolute 0.02 K/mm3 (0.00-0.031); Immature Granulocyte Percent A 0.4 % (0-0.5); Immature Platelet Fraction Pct 4.4 % (0.9-11.2); Lymphocytes Absolute Auto 0.47 K/mm3 (0.9-3.2); Mean Corpuscular HGB Conc 32.3 g/dl (32-36); Mean Corpuscular Hemoglobin 29.8 pg (26-34); Mean Corpuscular Volume 92.1 fl (80-100); Mean Platelet Volume 10.5 fl (7.4-10.4); Monocytes Absolute Auto 0.3 K/mm3 (0.1-0.6); Monocytes Percent Auto 6.5 % (2.6-8.5); Neutrophils Absolute Auto 4.4 K/mm3 (1.3-6.7); Neutrophils Percent Auto 83.3 % (45.5-73.1); Platelet Count Result 104 k/mm3 (150-375); Red Blood Count 3.66 M/mm3 (4.2-5.4); Red Cell Distribution Width 12.3 % (11.5-14.5); White Blood Count 5.2 K/mm3 (4.5-10.0)
[2024-05-26] MEDS: PIPERACILLN/TAZ 3.375GM/NS50ML 3.375 GM/50 ML BAG IVPB ×5 (05:24→23:59)
[2024-05-26] MEDS: SODIUM CHLORIDE 0.9% IV 1,000 ML 125 ML IV CONT (05:24)
[2024-05-26 05:26] LABS: Alanine Aminotransferase 19 U/L (6-35); Albumin Level 3.4 g/dL (3.5-5.1); Alkaline Phosphatase 61 U/L (38-126); Anion Gap 9 mmol/L (4-12); Aspartate Amino Transferase 25 U/L (14-36); Bilirubin,Total 0.3 mg/dL (0.2-1.3); Blood Urea Nitrogen 15 mg/dL (7-17); Calcium 7.9 mg/dL (8.4-10.2); Carbon Dioxide 19 mmol/L (22-30); Chloride 108 mmol/L (98-107); Estimated CRCL calculation 50 ml/min; Estimated Glomerular Filt Rate 58; Glucose 120 mg/dL (65-110); Potassium 4.4 mmol/L (3.4-5.0); Sodium 136 mmol/L (137-145)
--- NOTE | 2024-05-26 08:09 | P.CONIM_ITS ---
Assessment and Plan Assessment and plan (1) Acute appendicitis: Code(s): K35.80 - Unspecified acute appendicitis Status: Inactive Assessment and Plan: * CT perforated appendicitis * surgical services to perform laparoscopic appendectomy today 05/25/2024 * IV Zosyn * pain control * antipyretics * antiemetics * normal WBC * monitor for signs of sepsis (2) Essential hypertension: Code(s): I10 - Essential (primary) hypertension Status: Acute Assessment and Plan: * resume lisinopril post surgery * monitor BP per unit protocol BP reviewed- stable- 114/70 (3) Insulin dependent type 2 diabetes mellitus: Code(s): E11.9 - Type 2 diabetes mellitus without complications; Z79.4 - retirement (current) use of insulin Status: Chronic Assessment and Plan: * Accu-Cheks a.c. HS * sliding scale insulin * hold oral diabetic medications/ metformin and Farxiga * resume patient's home long-acting * Diabetic diet post surgery * Optimize Sukhdeep inhibitors and statins. * Watch for hypoglycemia/hypoglycemic protocol ordered reviewed- stable- 120 this am (4) CKD (chronic kidney disease) stage 3, GFR 30-59 ml/min: Code(s): N18.30 - Chronic kidney disease, stage 3 unspecified Status: Chronic Assessment and Plan: * Cr 1.10 POA * IV fluids * trend (5) Iron deficiency anemia: Qualifiers: Iron deficiency anemia type: unspecified iron deficiency Qualified Code(s): D50.9 - Iron deficiency anemia, unspecified Code(s): D50.9 - Iron deficiency anemia, unspecified Status: Acute Assessment and Plan: * hemoglobin 12.3 POA stable * resume ferrous sulfate (6) Thrombocytopenia: Code(s): D69.6 - Thrombocytopenia, unspecified Status: Acute Assessment and Plan: * PLT 124 POA * could be secondary to ruptured appendicitis CT also showing cirrhosis of the liver * will likely need follow-up outpatient with teachers' assistant or hepatology Plan Code status: Full code per patient DVT prophylaxis: SCD Stress ulcer prophylaxis: Protonix 40 daily PT/OT notes: Ambulatory Disposition: patient was admitted to the medical unit under Surgical Services as requested hospitalist team was consulted for medical management current plan is for laparoscopic appendectomy today will continue to monitor and assist in patient care. HPI Date of Consult Consult date: 05/26/24 Requesting Physician: King Concepcion MD Primary Care Provider: Yunior Woodard MD Consult Narrative Narrative: Trish Patel is a 68 year old female admitted with complaints of right lower quadrant pain which she described intermittent and sharp as well as abdominal tenderness and nausea with dry heaves but no vomiting. Pt has PMH/of diabetes, CKD 3, hypertension, and hyperlipidemia. initial read on the CT scan was showing appendicitis however after further evaluation by general surgery is following the patient had a ruptured appendix. patient was then placed on IV Zosyn and NPO with plans for surgical intervention a laparoscopic appendicectomy on 05/25/2024. patient has remained afebrile and had a normal WBC upon arrival, labs reviewed showed thrombocytopenia 124 and mild DALIA with a Cr of 1.10 otherwise unremarkable. Hospitalists services were consulted for managing patient's diabetes hypertension, diabetes. BS remains stable, BP well controlled. pt is calm and comfortable, ready to go home. Review of Systems 2 Review of Systems: All systems reviewed & are unremarkable except as noted in HPI and below PMFSH Past Medical History Medical History BMI 33.0-33.9,adult BMI 32.0-32.9,adult Left carotid stenosis Suspected chronic obstructive pulmonary disease based on initial evaluation Transient ischemic attack Insulin dependent type 2 diabetes mellitus Chronic kidney disease, stage 3 Tobacco abuse BMI 35.0-35.9,adult Depression Essential hypertension Surgical History Surgical History History of colonoscopy with polypectomy History of cholecystectomy Family History Family History Grandparent No problems noted. Father Family history of coronary artery disease Cerebrovascular accident Mother No problems noted. Sibling No problems noted. Social History Social History Social History: Surrogate medical decision maker: Peg Levy, . Code status: Full code. Smoking packs per day: 2.5 Smoking cigarettes per day: 50.0 Years smoked: 56 Smoking pack-years: 140.00 Smoking status: Current every day smoker Tobacco type: cigarettes Additional smoking assessment comments: Heavy smoker, 2 packs of cigarettes a day for many years. Alcohol intake: never Alcohol use details: Social alcohol use in moderation. Substance use: never Substance use type: does not use Do You Feel Safe in your Home?: Yes Lack of Transportation: No Lack of Food: Never True Current Housing: I Have Housing Concerned About Future Housing: No Difficulty Paying Gas/Electric Bills: No Difficulty Paying for Meds: No Currently Unemployed: No Education: High School Diploma/GED Difficulty w/ Childcare or Family Care: No Additional living arrangements comments: The patient lives with her in [place]. Additional occupation/education comments: Retired. Spiritual care concerns: No Meds Home Medications and Allergies Home Medications ?Medication ?Instructions ?Recorded ?Confirmed ?Type blood sugar diagnostic (OneTouch #100 ea 11/12/19 05/25/24 Rx Ultra Blue Test Strip) aspirin 81 mg tablet,delayed 81 mg PO DAILY #30 tabs 07/08/20 05/25/24 Rx release pen needle, diabetic 32 gauge x #100 06/16/22 05/25/24 Rx 5/32 (BD Ultra-Fine Berta Pen Needle) blood sugar diagnostic (Blood #120 06/17/22 05/25/24 Rx Glucose Test strips) blood-glucose meter #1 06/17/22 05/25/24 Rx lancets #100 ea 06/17/22 05/25/24 Rx insulin syringe,safety needle 0.3 #500 07/01/22 05/25/24 Rx mL 29 gauge x 1/2 cholecalciferol (vitamin D3) 50 50 mcg PO DAILY 01/24/23 05/25/24 History mcg (2,000 unit) capsule diphenhydramine HCl 25 mg tablet 25 mg PO QHS PRN sleep 01/24/23 05/25/24 History (Benadryl Allergy) glucose 4 gram chewable tablet 16 g (4 x 4 gram) PO Q15M PRN 01/24/23 05/25/24 Rx (Dex4 Glucose) hypoglycemia #60 tabs magnesium oxide 500 mg capsule 500 mg PO DAILY 01/24/23 05/25/24 History zinc gluconate 50 mg tablet 50 mg PO DAILY 01/24/23 05/25/24 History metformin 500 mg tablet,extended 500 mg PO TID #270 tabs 09/29/23 05/25/24 Rx release 24 hr semaglutide 2 mg/dose (8 mg/3 mL) 2 mg (0.75 mL) subcut WEEKLY 90 09/29/23 05/25/24 Rx subcutaneous pen injector (Ozempic) days #9 mL blood sugar diagnostic (OneTouch #25 ea 12/02/23 05/25/24 Rx Ultra Test strips) insulin degludec 100 unit/mL (3 24 unit (0.24 mL) subcut QHS #15 mL 01/31/24 05/25/24 Rx mL) subcutaneous pen (Tresiba FlexTouch U-100 insulin) dapagliflozin propanediol 10 mg 10 mg PO QAM #90 tabs 02/13/24 05/25/24 Rx tablet (Farxiga) fluoxetine 20 mg capsule (Prozac) 20 mg PO DAILY #90 caps 03/21/24 05/25/24 Rx lisinopril 10 mg tablet 20 mg (2 x 10 mg) PO DAILY #180 03/21/24 05/25/24 Rx tabs acetaminophen 300 mg-codeine 30 mg 1 tablet PO Q8H PRN pain #30 tabs 04/04/24 05/25/24 Rx tablet cyanocobalamin (vitamin B-12) 500 500 mcg PO .every other week 05/25/24 05/25/24 History mcg tablet ferrous sulfate 325 mg (65 mg 325 mg PO .3 times per week 05/25/24 05/25/24 History iron) tablet Allergies Allergy/AdvReac Type Severity Reaction Status Date / Time Penicillins Allergy Unknown Unknown Verified 05/25/24 07:52 Vital Signs Vital Signs - 24 hr 05/25/24 12:00 05/25/24 14:00 05/25/24 16:05 Temperature 99.0 F 100.1 F H Pulse Rate 84 82 107 H Respiratory Rate 18 20 Blood Pressure 138/65 167/91 H Pulse Oximetry 98 96 Oxygen Delivery Simple Face Mask Oxygen Flow Rate 6 05/25/24 16:19 05/25/24 16:35 05/25/24 16:50 Temperature Pulse Rate 97 96 90 Respiratory Rate 18 16 14 Blood Pressure 159/58 H 155/56 H 148/84 H Pulse Oximetry 98 93 95 Oxygen Delivery Simple Face Mask Room Air Room Air Oxygen Flow Rate 6 05/25/24 17:32 05/25/24 20:00 05/25/24 20:00 Temperature 97.1 F L Pulse Rate 90 85 Respiratory Rate 18 Blood Pressure 137/61 Pulse Oximetry 94 Oxygen Delivery Room Air Oxygen Flow Rate 05/25/24 20:30 05/26/24 00:00 05/26/24 00:00 Temperature 97.3 F L 98 F Pulse Rate 77 77 75 Respiratory Rate 16 16 Blood Pressure 138/61 114/55 L Pulse Oximetry 97 97 Oxygen Delivery Oxygen Flow Rate 05/26/24 04:00 05/26/24 04:13 Temperature 97.6 F Pulse Rate 79 77 Respiratory Rate 18 Blood Pressure 114/70 Pulse Oximetry 95 Oxygen Delivery Oxygen Flow Rate Exam 2 Const: General: comfortable and no acute distress HENMT: Mouth: Yes moist mucous membranes Eyes: General: appearance normal, both eyes and all related structures Neck: Neck: supple Resp: Effort & Inspection: normal respiratory effort Auscultation: clear to auscultation bilaterally Cardio: Rate: regular rate Rhythm: regular rhythm GI: Auscultation: normal bowel sounds Other: Inspection: non-distended and scar (Gallbladder) GI Palp: Yes Soft to palpation, Yes Tenderness to palpation present (GI), Yes Guarding due to palpation present (GI), No Hepatomegaly present, No Splenomegaly present and Yes Rebound tenderness present Auscultation: Hypoactive bowel sounds present Skin: General skin exam: normal color and no rashes or lesions noted W ounds: no wounds Neuro: Speech: normal speech Extrem: General: normal to inspection Psych: Mental Status: mental status grossly normal Affect: normal affect Results Labs 05/26/24 04:45 05/26/24 04:45 Labs: Short CBC 05/26/24 Range/Units 04:45 WBC 5.2 (4.5-10.0) K/mm3 Hgb 10.9 L (12.0-15.0) g/dL Hct 33.7 L (37.0-47.0) % Plt Count 104 L (150-375) k/mm3 BMP 05/26/24 04:45 Sodium 136 L Potassium 4.4 Chloride 108 H Carbon Dioxide 19 L BUN 15 D Creatinine 0.95 Glucose 120 H Calcium 7.9 L Liver Function 05/26/24 Range/Units 04:45 Total Bilirubin 0.3 (0.2-1.3) mg/dL AST 25 (14-36) U/L ALT 19 (6-35) U/L Alkaline Phosphatase 61 (38-126) U/L Albumin 3.4 L (3.5-5.1) g/dL Quality VTE Prophylaxis VTE prophylaxis: mechanical ordered
[2024-05-26 08:37] LABS: Glucose Point of Care 112 mg/dl (65-105)
[2024-05-26] MEDS: CHOLECALCIFEROL 1,000 UNITS TABLET 2000 UNITS PO (08:57)
[2024-05-26] MEDS: lisinopriL 20 MG TABLET PO (08:57)
[2024-05-26] MEDS: PANTOPRAZOLE 40 MG TABLET PO (08:58)
[2024-05-26] MEDS: MAGNESIUM OXIDE 400 MG TABLET PO (08:58)
[2024-05-26] MEDS: FLUoxetine HCL 20 MG CAPSULE PO (08:58)
--- NOTE | 2024-05-26 12:02 | PM.PNGS ---
Progress Note: A&P Assessment and Plan (1) Ruptured appendicitis: Code(s): K35.32 - Acute appendicitis with perforation, localized peritonitis, and gangrene, without abscess Status: Acute Assessment and Plan: Doing well. Advance to diabetic diet. Continue IV antibiotics today, possibly home tomorrow. (2) Insulin dependent type 2 diabetes mellitus: Code(s): E11.9 - Type 2 diabetes mellitus without complications; Z79.4 - MCFP (current) use of insulin Status: Chronic Assessment and Plan: Appreciate hospitalist care. (3) Tobacco abuse: Code(s): Z72.0 - Tobacco use Status: Chronic Assessment and Plan: Long-term smoker Subjective Subjective Date/Time Seen: 05/26/24 12:02 Post Op day: 1 Patient reports: feels better, pain is less, voiding w/o difficulty and afebrile Exam Const: General: comfortable and no acute distress Orientation/consciousness: patient oriented x3 GI: Inspection: incision (Dry and healing) GI Palp: Yes Soft to palpation, Yes Tenderness to palpation present (GI) (Minimal tenderness), No Guarding due to palpation present (GI) and No Rebound tenderness present Auscultation: normal bowel sounds Neuro: General: patient oriented x3 and no focal motor deficits Extrem: General: no calf tenderness and no edema Psych: Speech and movement: Clear speech present Affect: Anxious affect present Attitude: cooperative Insight: Good insight present (Psych) Judgement: Good judgement present (Psych) Objective Data Vital Signs Vital Signs: Vital Signs - 24 hr 05/25/24 14:00 05/25/24 16:05 05/25/24 16:19 Temperature 37.2 C 37.8 C H Pulse Rate 82 107 H 97 Respiratory Rate 18 20 18 Blood Pressure 138/65 167/91 H 159/58 H Pulse Oximetry 98 96 98 Oxygen Delivery Simple Face Mask Simple Face Mask Oxygen Flow Rate 6 6 05/25/24 16:35 05/25/24 16:50 05/25/24 17:32 Temperature 36.2 C L Pulse Rate 96 90 90 Respiratory Rate 16 14 18 Blood Pressure 155/56 H 148/84 H 137/61 Pulse Oximetry 93 95 94 Oxygen Delivery Room Air Room Air Oxygen Flow Rate 05/25/24 20:00 05/25/24 20:00 05/25/24 20:30 Temperature 36.3 C L Pulse Rate 85 77 Respiratory Rate 16 Blood Pressure 138/61 Pulse Oximetry 97 Oxygen Delivery Room Air Oxygen Flow Rate 05/26/24 00:00 05/26/24 00:00 05/26/24 04:00 Temperature 36.6 C Pulse Rate 77 75 79 Respiratory Rate 16 Blood Pressure 114/55 L Pulse Oximetry 97 Oxygen Delivery Oxygen Flow Rate 05/26/24 04:13 05/26/24 08:00 05/26/24 08:00 Temperature 36.4 C Pulse Rate 77 73 76 Respiratory Rate 18 16 Blood Pressure 114/70 123/68 Pulse Oximetry 95 99 Oxygen Delivery Oxygen Flow Rate Intake/Output Intake/Output: Intake & Output 05/23/24 05/24/24 05/25/24 05/26/24 23:59 23:59 23:59 23:59 Intake Total 2840 1258.3 Balance 2840 1258.3 Meds/Results Medications: Active Medications Generic Name Dose Route Start Last Admin Trade Name Freq PRN Reason Stop Dose Admin Acetaminophen 500 mg 05/25/24 17:17 Acetaminophen 500 Mg Tablet PO Q6H PRN Pain Rated 1-3 Cyanocobalamin 500 mcg 06/02/24 09:00 Cyanocobalamin 500 Mcg Tablet PO [id number] ODALYS Dextrose 12.5 gm 05/25/24 06:20 Dextrose 50% 25 Gm/50 Ml Syringe IV PUSH PRN PRN Hypoglycemia Protocol Enoxaparin Sodium 40 mg 05/26/24 09:00 05/26/24 09:00 Enoxaparin 40 Mg/0.4 Ml Syringe SUB-Q Not Given DAILY ODALYS Ferrous Sulfate 325 mg 05/25/24 10:05 05/25/24 10:31 Ferrous Sulfate [address] BY MOUTH Not Given [id number] ODALYS Fluoxetine HCl 20 mg 05/25/24 10:05 05/26/24 08:58 Fluoxetine Hcl 20 Mg Capsule PO 20 mg DAILY ODALYS Administration Glucagon 1 mg 05/25/24 06:20 Glucagon For Inj 1 Mg Vial IM PRN PRN Hypoglycemia Protocol Glucose 15 gm 05/25/24 06:20 Glucose Oral Gel 15 Gm Of Glucse In 37.5 Gm Tube PO PRN PRN Hypoglycemia Protocol Sodium Chloride 1,000 mls @ 80 mls/hr 05/25/24 06:20 05/26/24 09:52 Normal Saline Iv IV CONT 80 mls/hr .[id number] ODALYS Infusion Dextrose 1,000 mls @ 100 mls/hr 05/25/24 06:20 Dextrose 5% 1,000 Ml IVPB PRN PRN Hypoglycemia Protocol Ibuprofen 800 mg in 200 mls @ 400 mls/hr 05/25/24 17:17 Caldolor 800 Mg/200 Ml IVPB Q6H PRN Breakthrough Pain Rated 1-3 or NPO Piperacillin/Tazobactam/Dextrose 3.375 gm in 50 mls @ 100 mls/hr 05/26/24 00:00 05/26/24 05:54 Zosyn 3.375 Gm/Ns 50 Ml IVPB Infused Q6HR [facility] Infusion Insulin Aspart 2 - 5 units 05/25/24 12:00 05/26/24 08:58 Insulin Aspart (*Bkc) 100 Units/Ml SUB-Q Not Given TIDWM [facility] Protocol Insulin Glargine 24 units 05/25/24 21:00 05/25/24 21:45 Insulin Glargine (*Bkc) 100 Units/Ml SUB-Q 24 units QHS ODALYS Administration Lisinopril 20 mg 05/25/24 10:05 05/26/24 08:57 Lisinopril 20 Mg Tablet PO 20 mg DAILY ODALYS Administration Magnesium Oxide 400 mg 05/25/24 10:05 05/26/24 08:58 Magnesium Oxide 400 Mg Tablet PO 400 mg DAILY ODALYS Administration Morphine Sulfate 2 mg 05/25/24 17:17 Morphine Sulfate (*Crx) 2 Mg/Ml Inj IV PUSH Q2H PRN Breakthrough Pain Rated 4-6 or NPO Morphine Sulfate 4 mg 05/25/24 17:17 Morphine Sulfate (*Crx) 4 Mg/Ml Inj IV PUSH Q2H PRN Breakthrough Pain Rated 7-10 or NPO Naloxone HCl 0.1 mg 05/25/24 17:17 Naloxone Hcl 0.4 Mg/Ml Vial IV PUSH Q2M PRN Opiate Reversal Nicotine 1 patch 05/25/24 09:00 05/26/24 08:58 Nicotine (*Pbkc) 7 Mg Patch TRANSDERM Not Given DAILY [facility] Ondansetron HCl 4 mg 05/25/24 06:18 Ondansetron Inj 4 Mg/2 Ml Vial IV PUSH Q4H PRN Nausea Oxycodone/Acetaminophen 1 tablet 05/25/24 17:17 05/26/24 00:03 Oxycodone/Acetaminophen (*Crx) 5-325 Mg Tablet PO 1 tablet Q4H PRN Administration Pain Rated 4-6 Oxycodone/Acetaminophen 1 tab 05/25/24 17:17 05/25/24 19:47 Oxycodone/Acetaminophen (*Crx) 10-325 Mg Tablet PO 1 tab Q6H PRN Administration Pain Rated 7-10 Pantoprazole Sodium 40 mg 05/25/24 10:10 05/26/24 08:58 Pantoprazole 40 Mg Tablet PO 40 mg QAM ODALYS Administration Vitamin D 2,000 units 05/25/24 10:05 05/26/24 08:57 Cholecalciferol 1,000 Units Tablet PO 2,000 units DAILY ODALYS Administration Radiology Results: ITS Impressions Abdomen/Pelvis CT 05/25/24 06:32 IMPRESSION: 1. Perforated appendicitis. 2. Cirrhosis of the liver. Labs Labs: Laboratory Results - last 24 hr 05/25/24 05/25/24 05/25/24 14:34 16:34 17:40 WBC RBC Hgb Hct MCV MCH MCHC RDW Plt Count MPV Immature Gran % (Auto) Neut % (Auto) Lymph % (Auto) [place] % (Auto) Eos % (Auto) Baso % (Auto) Lymph # (Auto) [place] # (Auto) Eos # (Auto) Baso # (Auto) Abs Immat Gran (auto) Absolute Neuts (auto) Absolute Nucleated RBC Nucleated RBC % % Immature Plt Fraction Sodium Potassium Chloride Carbon Dioxide Anion Gap BUN Creatinine Estim Creat Clear Calc Estimated GFR Glucose POC Capillary Glucose 132 H 159 H 138 H Calcium Total Bilirubin AST ALT Alkaline Phosphatase Total Protein Albumin 05/25/24 05/26/24 05/26/24 21:41 04:45 08:00 WBC 5.2 RBC 3.66 L Hgb 10.9 L Hct 33.7 L MCV 92.1 MCH 29.8 MCHC 32.3 RDW 12.3 Plt Count 104 L MPV 10.5 H Immature Gran % (Auto) 0.4 Neut % (Auto) 83.3 H Lymph % (Auto) 9.0 L [place] % (Auto) 6.5 Eos % (Auto) 0.4 Baso % (Auto) 0.4 Lymph # (Auto) 0.47 L [place] # (Auto) 0.3 Eos # (Auto) 0.0 Baso # (Auto) 0.0 Abs Immat Gran (auto) 0.02 Absolute Neuts (auto) 4.4 Absolute Nucleated RBC 0.000 Nucleated RBC % 0.0 % Immature Plt Fraction 4.4 Sodium 136 L Potassium 4.4 Chloride 108 H Carbon Dioxide 19 L Anion Gap 9 BUN 15 D Creatinine 0.95 Estim Creat Clear Calc 50 Estimated GFR 58 L Glucose 120 H POC Capillary Glucose 209 H 112 H Calcium 7.9 L Total Bilirubin 0.3 AST 25 ALT 19 Alkaline Phosphatase 61 Total Protein 6.0 L Albumin 3.4 L
[2024-05-26 12:19] LABS: Glucose Point of Care 121 mg/dl (65-105)
--- NOTE | 2024-05-26 16:34 | WPDANESPN ---
Anes - Prog Note Post-Op Date/Time: 05/26/24 16:34 Cardiovascular status: normal Respiratory status: normal Airway patency: baseline Mental status: baseline Post-Op hydration status: normal Vital Signs: Last Vital Signs Temp 36.4 C 05/26/24 04:13 Pulse 76 05/26/24 16:00 Resp 16 05/26/24 08:00 BP 116/72 05/26/24 12:00 Pulse Ox 100 05/26/24 12:00 O2 Del Method Room Air 05/25/24 20:00 O2 Flow Rate 6 05/25/24 16:19 Pain Score (VAS): 2 I/O: Intake & Output 05/26/24 05/26/24 05/26/24 07:59 15:59 23:59 Intake Total 220 1328.3 Balance 220 1328.3 Laboratory Tests 05/26/24 04:45 05/26/24 04:45 05/25/24 05/25/24 05/25/24 16:34 17:40 21:41 WBC RBC Hgb Hct MCV MCH MCHC RDW Plt Count MPV Immature Gran % (Auto) Neut % (Auto) Lymph % (Auto) [place] % (Auto) Eos % (Auto) Baso % (Auto) Lymph # (Auto) [place] # (Auto) Eos # (Auto) Baso # (Auto) Abs Immat Gran (auto) Absolute Neuts (auto) Absolute Nucleated RBC Nucleated RBC % % Immature Plt Fraction Sodium Potassium Chloride Carbon Dioxide Anion Gap BUN Creatinine Estim Creat Clear Calc Estimated GFR Glucose POC Capillary Glucose 159 H 138 H 209 H Calcium Total Bilirubin AST ALT Alkaline Phosphatase Total Protein Albumin 05/26/24 05/26/24 05/26/24 04:45 08:00 11:59 WBC 5.2 RBC 3.66 L Hgb 10.9 L Hct 33.7 L MCV 92.1 MCH 29.8 MCHC 32.3 RDW 12.3 Plt Count 104 L MPV 10.5 H Immature Gran % (Auto) 0.4 Neut % (Auto) 83.3 H Lymph % (Auto) 9.0 L [place] % (Auto) 6.5 Eos % (Auto) 0.4 Baso % (Auto) 0.4 Lymph # (Auto) 0.47 L [place] # (Auto) 0.3 Eos # (Auto) 0.0 Baso # (Auto) 0.0 Abs Immat Gran (auto) 0.02 Absolute Neuts (auto) 4.4 Absolute Nucleated RBC 0.000 Nucleated RBC % 0.0 % Immature Plt Fraction 4.4 Sodium 136 L Potassium 4.4 Chloride 108 H Carbon Dioxide 19 L Anion Gap 9 BUN 15 D Creatinine 0.95 Estim Creat Clear Calc 50 Estimated GFR 58 L Glucose 120 H POC Capillary Glucose 112 H 121 H Calcium 7.9 L Total Bilirubin 0.3 AST 25 ALT 19 Alkaline Phosphatase 61 Total Protein 6.0 L Albumin 3.4 L Post-procedural complaints: none Patient Feedback: Patient satisfied with anesthetic care.
[2024-05-26 17:00] LABS: Glucose Point of Care 137 mg/dl (65-105)
[2024-05-26] MEDS: oxyCODONE/ACETAMINOPHEN (*CRX) 10-325 MG TABLET 1 TAB PO ×2 (17:02→23:15)
[2024-05-26] MEDS: INSULIN GLARGINE (*BKC) 100 UNITS/ML 24 UNITS SUB-Q (20:34)
[2024-05-26 20:51] LABS: Glucose Point of Care 181 mg/dl (65-105)
[2024-05-27] VITALS: PULSE 78
[2024-05-27 04:00] VITALS: PULSE 73
[2024-05-27 04:22] VITALS: BP 158/76; PULSE 87; RESP 18; TEMP 37; O2SAT 97
[2024-05-27 05:33] LABS: Basophils Percent Auto 0.7 % (0.2-1.2); Eosinophils Absolute Auto 0.3 K/mm3 (0-0.3); Eosinophils Percent Auto 6.5 % (0-4.4); Hematocrit 36.3 % (37.0-47.0); Hemoglobin 11.7 g/dL (12.0-15.0); Immature Granulocyte Absolute 0.02 K/mm3 (0.00-0.031); Immature Granulocyte Percent A 0.4 % (0-0.5); Immature Platelet Fraction Pct 3.8 % (0.9-11.2); Lymphocytes Absolute Auto 1.09 K/mm3 (0.9-3.2); Lymphocytes Percent Auto 24.4 % (18.3-44.2); Mean Corpuscular HGB Conc 32.2 g/dl (32-36); Mean Corpuscular Hemoglobin 29.4 pg (26-34); Mean Corpuscular Volume 91.2 fl (80-100); Mean Platelet Volume 10.2 fl (7.4-10.4); Monocytes Absolute Auto 0.4 K/mm3 (0.1-0.6); Monocytes Percent Auto 8.7 % (2.6-8.5); Neutrophils Absolute Auto 2.6 K/mm3 (1.3-6.7); Neutrophils Percent Auto 59.3 % (45.5-73.1); Platelet Count Result 128 k/mm3 (150-375); Red Blood Count 3.98 M/mm3 (4.2-5.4); Red Cell Distribution Width 12.3 % (11.5-14.5); White Blood Count 4.5 K/mm3 (4.5-10.0)
[2024-05-27 05:43] LABS: Alanine Aminotransferase 20 U/L (6-35); Albumin Level 3.5 g/dL (3.5-5.1); Alkaline Phosphatase 60 U/L (38-126); Anion Gap 6 mmol/L (4-12); Aspartate Amino Transferase 30 U/L (14-36); Bilirubin,Total 0.3 mg/dL (0.2-1.3); Blood Urea Nitrogen 14 mg/dL (7-17); Calcium 8.4 mg/dL (8.4-10.2); Carbon Dioxide 23 mmol/L (22-30); Chloride 108 mmol/L (98-107); Estimated CRCL calculation 45 ml/min; Estimated Glomerular Filt Rate 51; Glucose 108 mg/dL (65-110); Potassium 4.1 mmol/L (3.4-5.0); Sodium 137 mmol/L (137-145)
[2024-05-27] MEDS: PIPERACILLN/TAZ 3.375GM/NS50ML 3.375 GM/50 ML BAG IVPB (06:14)
[2024-05-27 07:51] LABS: Glucose Point of Care 97 mg/dl (65-105)
[2024-05-27 08:00] VITALS: PULSE 77
[2024-05-27] MEDS: PANTOPRAZOLE 40 MG TABLET PO (09:36)
[2024-05-27] MEDS: CHOLECALCIFEROL 1,000 UNITS TABLET 2000 UNITS PO (09:36)
[2024-05-27] MEDS: lisinopriL 20 MG TABLET PO (09:36)
[2024-05-27] MEDS: FLUoxetine HCL 20 MG CAPSULE PO (09:36)
[2024-05-27] MEDS: MAGNESIUM OXIDE 400 MG TABLET PO (09:36)
[2024-05-27] MEDS: ENOXAPARIN 40 MG/0.4 ML SYRINGE SUB-Q (09:37)
--- NOTE | 2024-05-27 09:54 | P.CONIM_ITS ---
Assessment and Plan Assessment and plan (1) Acute appendicitis: Code(s): K35.80 - Unspecified acute appendicitis Status: Inactive Assessment and Plan: * CT perforated appendicitis * surgical services to perform laparoscopic appendectomy today 05/25/2024 * IV Zosyn * pain control * antipyretics * antiemetics * normal WBC * monitor for signs of sepsis (2) Essential hypertension: Code(s): I10 - Essential (primary) hypertension Status: Acute Assessment and Plan: * resume lisinopril post surgery * monitor BP per unit protocol BP reviewed- somewhat elevated this am pt is to check it daily i am and keep log no med adjustment at this time (3) Insulin dependent type 2 diabetes mellitus: Code(s): E11.9 - Type 2 diabetes mellitus without complications; 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 HS * sliding scale insulin * hold oral diabetic medications/ metformin and Farxiga * resume patient's home long-acting * Diabetic diet post surgery * Optimize Sukhdeep inhibitors and statins. * Watch for hypoglycemia/hypoglycemic protocol ordered reviewed- stable- 120 this am (4) CKD (chronic kidney disease) stage 3, GFR 30-59 ml/min: Code(s): N18.30 - Chronic kidney disease, stage 3 unspecified Status: Chronic Assessment and Plan: * Cr 1.10 POA * IV fluids * trend (5) Iron deficiency anemia: Qualifiers: Iron deficiency anemia type: unspecified iron deficiency Qualified Code(s): D50.9 - Iron deficiency anemia, unspecified Code(s): D50.9 - Iron deficiency anemia, unspecified Status: Acute Assessment and Plan: * hemoglobin 12.3 POA stable * resume ferrous sulfate (6) Thrombocytopenia: Code(s): D69.6 - Thrombocytopenia, unspecified Status: Acute Assessment and Plan: * PLT 124 POA * could be secondary to ruptured appendicitis CT also showing cirrhosis of the liver * will likely need follow-up outpatient with sleeve setter lockstitch or hepatology Plan Code status: Full code per patient DVT prophylaxis: SCD Stress ulcer prophylaxis: Protonix 40 daily PT/OT notes: Ambulatory Disposition: patient was admitted to the medical unit under Surgical Services as requested hospitalist team was consulted for medical management current plan is for laparoscopic appendectomy today will continue to monitor and assist in patient care. HPI Date of Consult Consult date: 05/27/24 Requesting Physician: King Concepcion MD Primary Care Provider: Yunior Woodard MD Consult Narrative Reason for consult: med mngmnt Narrative: Trish Patel is a 68 year old female admitted with complaints of right lower quadrant pain which she described intermittent and sharp as well as abdominal tenderness and nausea with dry heaves but no vomiting. Pt has PMH/of diabetes, CKD 3, hypertension, and hyperlipidemia. initial read on the CT scan was showing appendicitis however after further evaluation by general surgery is following the patient had a ruptured appendix. patient was then placed on IV Zosyn and NPO with plans for surgical intervention a laparoscopic appendicectomy on 05/25/2024. patient has remained afebrile and had a normal WBC upon arrival, labs reviewed showed thrombocytopenia 124 and mild DALIA with a Cr of 1.10 otherwise unremarkable. Hospitalists services were consulted for managing patient's diabetes hypertension, diabetes. BS remains stable, BP slightly elevated. Pt is hopeful to go home today. Review of Systems 2 Review of Systems: All systems reviewed & are unremarkable except as noted in HPI and below PMFSH Past Medical History Medical History BMI 33.0-33.9,adult BMI 32.0-32.9,adult Left carotid stenosis Suspected chronic obstructive pulmonary disease based on initial evaluation Transient ischemic attack Insulin dependent type 2 diabetes mellitus Chronic kidney disease, stage 3 Tobacco abuse BMI 35.0-35.9,adult Depression Essential hypertension Surgical History Surgical History History of colonoscopy with polypectomy History of cholecystectomy Family History Family History Grandparent No problems noted. Father Family history of coronary artery disease Cerebrovascular accident Mother No problems noted. Sibling No problems noted. Social History Social History Social History: Surrogate medical decision maker: Peg Levy, . Code status: Full code. Smoking packs per day: 2.5 Smoking cigarettes per day: 50.0 Years smoked: 56 Smoking pack-years: 140.00 Smoking status: Current every day smoker Tobacco type: cigarettes Additional smoking assessment comments: Heavy smoker, 2 packs of cigarettes a day for many years. Alcohol intake: never Alcohol use details: Social alcohol use in moderation. Substance use: never Substance use type: does not use Do You Feel Safe in your Home?: Yes Lack of Transportation: No Lack of Food: Never True Current Housing: I Have Housing Concerned About Future Housing: No Difficulty Paying Gas/Electric Bills: No Difficulty Paying for Meds: No Currently Unemployed: No Education: High School Diploma/GED Difficulty w/ Childcare or Family Care: No Additional living arrangements comments: The patient lives with her in [place]. Additional occupation/education comments: Retired. Spiritual care concerns: No Meds Home Medications and Allergies Home Medications ?Medication ?Instructions ?Recorded ?Confirmed ?Type blood sugar diagnostic (OneTouch #100 ea 11/12/19 05/25/24 Rx Ultra Blue Test Strip) aspirin 81 mg tablet,delayed 81 mg PO DAILY #30 tabs 07/08/20 05/25/24 Rx release pen needle, diabetic 32 gauge x #100 ea 06/16/22 05/25/24 Rx 5/32 (BD Ultra-Fine Berta Pen Needle) blood sugar diagnostic (Blood #120 ea 06/17/22 05/25/24 Rx Glucose Test strips) blood-glucose meter #1 ea 06/17/22 05/25/24 Rx lancets #100 ea 06/17/22 05/25/24 Rx insulin syringe,safety needle 0.3 #500 ea 07/01/22 05/25/24 Rx mL 29 gauge x 1/2 cholecalciferol (vitamin D3) 50 50 mcg PO DAILY 01/24/23 05/25/24 History mcg (2,000 unit) capsule diphenhydramine HCl 25 mg tablet 25 mg PO QHS PRN sleep 01/24/23 05/25/24 History (Benadryl Allergy) glucose 4 gram chewable tablet 16 g (4 x 4 gram) PO Q15M PRN 01/24/23 05/25/24 Rx (Dex4 Glucose) hypoglycemia #60 tabs magnesium oxide 500 mg capsule 500 mg PO DAILY 01/24/23 05/25/24 History zinc gluconate 50 mg tablet 50 mg PO DAILY 01/24/23 05/25/24 History metformin 500 mg tablet,extended 500 mg PO TID #270 tabs 09/29/23 05/25/24 Rx release 24 hr semaglutide 2 mg/dose (8 mg/3 mL) 2 mg (0.75 mL) subcut WEEKLY 90 09/29/23 05/25/24 Rx subcutaneous pen injector (Ozempic) days #9 mL blood sugar diagnostic (OneTouch #25 ea 12/02/23 05/25/24 Rx Ultra Test strips) insulin degludec 100 unit/mL (3 24 unit (0.24 mL) subcut QHS #15 mL 01/31/24 05/25/24 Rx mL) subcutaneous pen (Tresiba FlexTouch U-100 insulin) dapagliflozin propanediol 10 mg 10 mg PO QAM #90 tabs 02/13/24 05/25/24 Rx tablet (Farxiga) fluoxetine 20 mg capsule (Prozac) 20 mg PO DAILY #90 caps 03/21/24 05/25/24 Rx lisinopril 10 mg tablet 20 mg (2 x 10 mg) PO DAILY #180 03/21/24 05/25/24 Rx tabs acetaminophen 300 mg-codeine 30 mg 1 tablet PO Q8H PRN pain #30 tabs 04/04/24 05/25/24 Rx tablet cyanocobalamin (vitamin B-12) 500 500 mcg PO .every other week 05/25/24 05/25/24 History mcg tablet ferrous sulfate 325 mg (65 mg 325 mg PO .3 times per week 05/25/24 05/25/24 History iron) tablet Allergies Allergy/AdvReac Type Severity Reaction Status Date / Time Penicillins Allergy Unknown Unknown Verified 05/25/24 07:52 Vital Signs Vital Signs - 24 hr 05/26/24 12:00 05/26/24 12:00 05/26/24 16:00 Temperature Pulse Rate 80 79 76 Respiratory Rate Blood Pressure 116/72 Pulse Oximetry 100 Oxygen Delivery 05/26/24 19:02 05/26/24 20:00 05/26/24 20:00 Temperature 97.6 F Pulse Rate 87 72 Respiratory Rate 18 Blood Pressure 145/85 H Pulse Oximetry 96 Oxygen Delivery Room Air 05/27/24 00:00 05/27/24 04:00 05/27/24 04:22 Temperature 98.6 F Pulse Rate 78 73 87 Respiratory Rate 18 Blood Pressure 158/76 H Pulse Oximetry 97 Oxygen Delivery 05/27/24 08:00 Temperature Pulse Rate 77 Respiratory Rate Blood Pressure Pulse Oximetry Oxygen Delivery Exam 2 Const: General: comfortable and no acute distress HENMT: Mouth: Yes moist mucous membranes Eyes: General: appearance normal, both eyes and all related structures Neck: Neck: supple Resp: Effort & Inspection: normal respiratory effort Auscultation: clear to auscultation bilaterally Cardio: Rate: regular rate Rhythm: regular rhythm GI: Auscultation: normal bowel sounds Other: Inspection: non-distended and scar (Gallbladder) GI Palp: Yes Soft to palpation, Yes Tenderness to palpation present (GI), Yes Guarding due to palpation present (GI), No Hepatomegaly present, No Splenomegaly present and Yes Rebound tenderness present Auscultation: Hypoactive bowel sounds present Skin: General skin exam: normal color and no rashes or lesions noted W ounds: no wounds Neuro: Speech: normal speech Extrem: General: normal to inspection Psych: Mental Status: mental status grossly normal Affect: normal affect Results Labs 05/27/24 05:22 05/27/24 05:22 Labs: Short CBC 05/27/24 Range/Units 05:22 WBC 4.5 (4.5-10.0) K/mm3 Hgb 11.7 L (12.0-15.0) g/dL Hct 36.3 L (37.0-47.0) % Plt Count 128 L (150-375) k/mm3 BMP 05/27/24 05:22 Sodium 137 Potassium 4.1 Chloride 108 H Carbon Dioxide 23 BUN 14 Creatinine 1.07 H Glucose 108 Calcium 8.4 Liver Function 05/27/24 Range/Units 05:22 Total Bilirubin 0.3 (0.2-1.3) mg/dL AST 30 (14-36) U/L ALT 20 (6-35) U/L Alkaline Phosphatase 60 (38-126) U/L Albumin 3.5 (3.5-5.1) g/dL Quality VTE Prophylaxis VTE prophylaxis: mechanical ordered
--- NOTE | 2024-05-27 10:24 | P.DS_ITS ---
DS: Admitting Diagnosis Discharge Date 05/27/2024 Admitting Diagnosis * Ruptured appendicitis * Insulin-dependent diabetes * Long-term smoker * Chronic kidney disease stage 3 DS: Discharge Diagnosis Discharge Diagnosis (1) Ruptured appendicitis: Code(s): K35.32 - Acute appendicitis with perforation, localized peritonitis, and gangrene, without abscess Status: Acute (2) Insulin dependent type 2 diabetes mellitus: Code(s): E11.9 - Type 2 diabetes mellitus without complications; Z79.4 - USP (cu rrent) use of insulin Status: Chronic (3) Tobacco abuse: Code(s): Z72.0 - Tobacco use Status: Chronic (4) Chronic kidney disease, stage 3: Qualifiers: Chronic kidney disease stage 3 subtype: unspecified whether 3a or 3b Qualified Code(s): N18.30 - Chronic kidney disease, stage 3 unspecified Code(s): N18.30 - Chronic kidney disease, stage 3 unspecified Status: Chronic DS: Summary Hospital Course Hospital Course: Patient presented to the emergency room with 3 day history of right lower quadrant abdominal pain. She had tenderness with guarding in the right lower quadrant and a white blood cell count of 9000. CT scan of the abdomen pelvis showed ruptured appendicitis. She was admitted to Dr. Concepcion but hospitalist consultation was given and managed her multiple medical conditions. She was taken to surgery on 05/25/2024 in the evening and laparoscopic appendectomy was performed. The appendix had ruptured but there was only localized peritonitis, the ruptured appendix had been walled off by surrounding tissues. Patient was continued on IV Zosyn antibiotics postoperatively. She was doing well and comfortable on oral analgesics. She was ambulating independently and is di scharged on postop day 2. To go home on ciprofloxacin and metronidazole for another 5 days. She was also given prescriptions for oral analgesics. Time spent discussing smoking cessation with patient: 3 to 10 minutes Status at Discharge Functional status at discharge: independent ambulation Overall status at discharge: patient is progressing back to baseline Time Spent with Patient Time attestation: Total time spent providing and/or coordinating discharge services: Time spent: Less than 30 minutes DS: Data Data Completed and Pending Pending studies at discharge: Pending at discharge 05/25/24 15:35 Surgical [PTH] Routine Labs on day of discharge: Labs from last 24 hours 05/27/24 05/27/24 05/26/24 07:44 05:22 20:14 WBC 4.5 RBC 3.98 L Hgb 11.7 L Hct 36.3 L MCV 91.2 MCH 29.4 MCHC 32.2 RDW 12.3 Plt Count 128 L MPV 10.2 Immature Gran % (Auto) 0.4 Neut % (Auto) 59.3 Lymph % (Auto) 24.4 Dickinson % (Auto) 8.7 H Eos % (Auto) 6.5 H Baso % (Auto) 0.7 Lymph # (Auto) 1.09 Dickinson # (Auto) 0.4 Eos # (Auto) 0.3 Baso # (Auto) 0.0 Abs Immat Gran (auto) 0.02 Absolute Neuts (auto) 2.6 Absolute Nucleated RBC 0.000 Nucleated RBC % 0.0 % Immature Plt Fraction 3.8 Sodium 137 Potassium 4.1 Chloride 108 H Carbon Dioxide 23 Anion Gap 6 BUN 14 Creatinine 1.07 H Estim Creat Clear Calc 45 Estimated GFR 51 L Glucose 108 POC Capillary Glucose 97 181 H Calcium 8.4 Total Bilirubin 0.3 AST 30 ALT 20 Alkaline Phosphatase 60 Total Protein 6.0 L Albumin 3.5 05/26/24 05/26/24 16:48 11:59 WBC RBC Hgb Hct MCV MCH MCHC RDW Plt Count MPV Immature Gran % (Auto) Neut % (Auto) Lymph % (Auto) Dickinson % (Auto) Eos % (Auto) Baso % (Auto) Lymph # (Auto) Dickinson # (Auto) Eos # (Auto) Baso # (Auto) Abs Immat Gran (auto) Absolute Neuts (auto) Absolute Nucleated RBC Nucleated RBC % % Immature Plt Fraction Sodium Potassium Chloride Carbon Dioxide Anion Gap BUN Creatinine Estim Creat Clear Calc Estimated GFR Glucose POC Capillary Glucose 137 H 121 H Calcium Total Bilirubin AST ALT Alkaline Phosphatase Total Protein Albumin Discharge Plan Discharge Attending physician on discharge: King Concepcion Consulting providers: Verito Morfin Discharging Clinician: King Concepcion Anticipated Discharge Date/Time: 05/27/24 10:32 Patient Disposition: Home, Self-Care Activity: may shower, no straining and as tolerated Diet: diabetic Discharge Instructions: * Ambulate 3-4 x per day and as tolerated. * No lifting over 15-20lbs. * May bathe or shower. Okay to wash incisions with soap and water * Stairs are OK. * May drive a car in 3 days. * Take both oral antibiotics until they are gone. * Take oxycodone pain medication only when definitely needed, call if pain is such that this is needed regularly. Try to use the ibuprofen or use Tylenol for pain whenever possible. Patient Instructions: Antibiotic Form Patient Language: Colombian Stand Alone Forms: General Discharge Information Follow-up/Referrals: King Concepcion MD [Physician] - 2 Weeks (Call Dr. Nick office to make appointment) Discharge Medications: New oxycodone-acetaminophen [Percocet] 5-325 mg tablet 0.5 - 1 tablet PO Q4H PRN (Reason: pain) Qty: 10 0RF ciprofloxacin HCl 500 mg tablet 500 mg PO Q12H Qty: 10 0RF ibuprofen 600 mg tablet 600 mg PO Q6H PRN (Reason: pain) Qty: 14 0RF metronidazole 500 mg tablet 500 mg PO TID Qty: 14 0RF Continued metformin 500 mg tablet extended release 24 hr 500 mg PO TID Qty: 270 3RF Ozempic 2 mg/dose (8 mg/3 mL) pen injector 2 mg subcut WEEKLY 90 Days Qty: 9 3RF (DME) pen needle, diabetic [BD Ultra-Fine Berta Pen Needle] 32 gauge x 5/32 needle See Rx Instructions .ROUTE .MEDSUPPLY Qty: 100 0RF Rx Instructions: As directed for insulin pen (DME) Blood Glucose Test Strip See Rx Instructions .ROUTE .MEDSUPPLY Qty: 120 0RF Rx Instructions: AC HS (DME) blood-glucose meter Kit See Rx Instructions .ROUTE .MEDSUPPLY Qty: 1 0RF Rx Instructions: ACHS (DME) lancets Misc See Rx Instructions .ROUTE .MEDSUPPLY Qty: 100 0RF Rx Instructions: AC HS zinc gluconate 50 mg tablet 50 mg PO DAILY magnesium oxide 500 mg capsule 500 mg PO DAILY cholecalciferol (vitamin D3) 50 mcg (2,000 unit) capsule 50 mcg PO DAILY diphenhydramine HCl [Benadryl Allergy] 25 mg tablet 25 mg PO QHS PRN (Reason: sleep) glucose [Dex4 Glucose] 4 gram tablet,chewable 16 g PO Q15M PRN (Reason: hypoglycemia) Qty: 60 1RF Rx Instructions: until symptoms of low blood sugar are controlled insulin degludec [Tresiba FlexTouch U-100] 100 unit/mL (3 mL) insulin pen 24 unit subcut QHS Qty: 15 0RF Rx Instructions: Gets Patient Assistance cyanocobalamin (vitamin B-12) 500 mcg tablet 500 mcg PO .every other week Patient Comments: Saturdays ferrous sulfate 325 mg (65 mg iron) tablet 325 mg PO .3 times per week Patient Comments: M/W/F (DME) OneTouch Ultra Blue Test Strip Strip See Rx Instructions .ROUTE .MEDSUPPLY Qty: 100 2RF Rx Instructions: Use to test blood sugar four times aspirin 81 mg tablet,delayed release (DR/EC) 81 mg PO DAILY Qty: 30 0RF (DME) insulin syringe,safety needle 0.3 mL 29 gauge x 1/2 syringe See Rx Instructions .Route Qty: 500 0RF Rx Instructions: As directed (DME) OneTouch Ultra Test Strip See Rx Instructions .Route Qty: 25 0RF Rx Instructions: use once a day to check blood sugars dapagliflozin propanediol [Farxiga] 10 mg tablet 10 mg PO QAM Qty: 90 1RF Rx Instructions: [place] [facility] fluoxetine [Prozac] 20 mg capsule 20 mg PO DAILY Qty: 90 0RF lisinopril 10 mg tablet 20 mg PO DAILY Qty: 180 1RF Held acetaminophen-codeine 300-30 mg tablet 1 tablet PO Q8H PRN (Reason: pain) Qty: 30 0RF Hold Instructions: Resume on 06/04/24. May resume taking this when no longer need oxycodone/tylenol prescribed by Dr. Concepcion Date of admission: 05/25/24 06:20 Primary Care Provider: Yunior Woodard Admitting Provider: King Concepcion Attending physician on admission: King Concepcion Condition: Improved
== END 2024-05-27 11:19 | disposition home or self-care (01) ==
LOC: ANHED 05-25 06:52 → ANH2MED 05-25 06:52
PROVIDERS: Nurse Practitioner Family; Physician Assistant; Admitting Provider Surgery; Emergency Provider Student in an Organized Health Care Education/Training Program; PCP Family Medicine; Visit Provider Surgery
PROC: 0DTJ4ZZ Resection of Appendix, Percutaneous Endoscopic Approach (ICD-10-PCS; CPT 44970; principal; 2024-05-25 15:30)
DX: K35.32 Acute appendicitis with perforation, localized peritonitis, and gangrene, without abscess (principal); E11.22 Type 2 diabetes mellitus with diabetic chronic kidney disease; I12.9 Hypertensive chronic kidney disease with stage 1 through stage 4 chronic kidney disease, or unspecified chronic kidney disease; N18.30 Chronic kidney disease, stage 3 unspecified; E66.9 Obesity, unspecified; Z68.29 Body mass index [BMI] 29.0-29.9, adult; F17.210 Nicotine dependence, cigarettes, uncomplicated; I65.29 Occlusion and stenosis of unspecified carotid artery; E78.5 Hyperlipidemia, unspecified; D50.9 Iron deficiency anemia, unspecified; D69.6 Thrombocytopenia, unspecified; Z79.4 Long term (current) use of insulin; Z79.84 Long term (current) use of oral hypoglycemic drugs; Z79.899 Other long term (current) drug therapy; Z88.0 Allergy status to penicillin; Z90.49 Acquired absence of other specified parts of digestive tract; Z86.73 Personal history of transient ischemic attack (TIA), and cerebral infarction without residual deficits
CPT/HCPCS: 44970; 36415; 74177; 80053; 81001; 82948; 83690; 85025; 85055; 88304; 96361; 96365; 96375; 99285; A9270; G0378; J0330; J1100; J1650; J1815; J2003; J2405; J2543; J2704; J3010; J7030; J7120; Q9967

== ENCOUNTER 2024-08-16 10:35 | Outpatient (CLI) | payer MEDICARE, SELFPAY ==
[2024-08-16 11:14] LABS: Basophils Absolute Auto 0.1 K/mm3 (0.0-0.1); Basophils Percent Auto 0.8 % (0.2-1.2); Eosinophils Absolute Auto 0.2 K/mm3 (0-0.3); Eosinophils Percent Auto 3.4 % (0-4.4); Hematocrit 42.2 % (37.0-47.0); Immature Granulocyte Absolute 0.02 K/mm3 (0.00-0.031); Immature Granulocyte Percent A 0.3 % (0-0.5); Lymphocytes Absolute Auto 1.36 K/mm3 (0.9-3.2); Lymphocytes Percent Auto 23.1 % (18.3-44.2); Mean Corpuscular HGB Conc 33.2 g/dl (32-36); Mean Corpuscular Hemoglobin 29.5 pg (26-34); Mean Corpuscular Volume 88.8 fl (80-100); Mean Platelet Volume 10.5 fl (7.4-10.4); Monocytes Absolute Auto 0.4 K/mm3 (0.1-0.6); Monocytes Percent Auto 7.1 % (2.6-8.5); Neutrophils Absolute Auto 3.9 K/mm3 (1.3-6.7); Neutrophils Percent Auto 65.3 % (45.5-73.1); Platelet Count Result 144 k/mm3 (150-375); Red Blood Count 4.75 M/mm3 (4.2-5.4); White Blood Count 5.9 K/mm3 (4.5-10.0)
[2024-08-16 11:21] LABS: Blood Urea Nitrogen 22 mg/dL (8-26); Carbon Dioxide 24 mmol/L (22-30); Chloride 102 mmol/L (98-109); Estimated Glomerular Filt Rate 49; Glucose 119 mg/dL (70-105); Ionized Calcium (POC) 1.15 mmol/L (1.11-1.31); Potassium 4.8 mmol/L (3.5-4.9); Sodium 135 mmol/L (138-146)
--- OUTSIDE RECORDS SUMMARY | 2024-08-16 11:22 | XMS_ITS | Referral Summary ---
Author Organization [facility] at the [facility] Address [address] [place] [address] Care Team Providers Care Board Certified Family Physician Name Role Phone Yunior Woodard MD Primary Care Provider [phone] Allergies Active Allergy Reactions Criticality Noted Date [...] (09/02/2020): Added automatically from request for surgery [id number] Carotid stenosis 08/08/2020 Assessment & Plan (08/08/2020 [...] on file Legal Sex Female 6:50 PM MORNING BABYSITTER Gender Identity Not on file Sexual Orientation Not on file Last Filed Vital Signs Vital Sign Reading Time Taken Comments Blood Pressure 179/102 03/19/2021 8:23 AM MORNING BABYSITTER Pulse 84 03/19/2021 8:23 AM MORNING BABYSITTER Temperature 36.4 C (97.5 F) 10/07/2020 9:07 AM CDT Respiratory Rate 18 10/07/2020 9:27 AM CDT Oxygen Saturation 100% 10/07/2020 9:27 AM CDT Inhaled Oxygen Concentration - - Weight 86.2 kg (190 lb) 03/19/2021 8:23 AM MORNING BABYSITTER Height 160 cm (5' 3) 03/19/2021 8:23 AM MORNING BABYSITTER Body Mass Index 33.66 03/19/2021 8:23 AM MORNING BABYSITTER Plan of Treatment Not on file Insurance [facility] MEDICARE ADVANTAGE [facility] MEDICARE ADVANTAGE [facility] MEDICARE ADVANTAGE Advance Directives For more information, please contact: [phone] * Full Code (Latest Code Status on File) Date Activated Date Inactivated Comments 10/07/2020 7:18 AM 10/07/2020 1:41 PM Care Teams Board Certified Family Physician Relationship Specialty Start Date End Date Yunior Woodard MD PCP - General Family Medicine 07/24/20
--- OUTSIDE RECORDS SUMMARY | 2024-08-16 11:22 | XMS_ITS | Clinical Summary ---
Author Organization [facility] at the [facility] Address [address] [place] [address] Care Team Providers Care Meat And Seafood Clerk Name Role Phone Yunior Woodard MD Primary Care Provider [phone] Allergies Active Allergy Reactions Criticality Noted Date [...] (09/02/2020): Added automatically from request for surgery [id number] Carotid stenosis 08/08/2020 Assessment & Plan (08/08/2020 [...] on file Legal Sex Female 6:50 PM ANATOMICAL EMBALMER Gender Identity Not on file Sexual Orientation Not on file Obstetrics History Last Filed Vital Signs Vital Sign Reading Time Taken Comments Blood Pressure 179/102 03/19/2021 8:23 AM ANATOMICAL EMBALMER Pulse 84 03/19/2021 8:23 AM ANATOMICAL EMBALMER Temperature 36.4 C (97.5 F) 10/07/2020 9:07 AM CDT Respiratory Rate 18 10/07/2020 9:27 AM CDT Oxygen Saturation 100% 10/07/2020 9:27 AM CDT Inhaled Oxygen Concentration - - Weight 86.2 kg (190 lb) 03/19/2021 8:23 AM ANATOMICAL EMBALMER Height 160 cm (5' 3) 03/19/2021 8:23 AM ANATOMICAL EMBALMER Body Mass Index 33.66 03/19/2021 8:23 AM ANATOMICAL EMBALMER Plan of Treatment Not on file Insurance [facility] MEDICARE ADVANTAGE [facility] Address: [facility] [address] [place] [address] [facility] MEDICARE ADVANTAGE [facility] Address: [address] [place] [address] [facility] MEDICARE ADVANTAGE [facility] Address: [address] [address] [place] [address] Advance Directives For more information, please contact: [phone] * Full Code (Latest Code Status on File) Date Activated Date Inactivated Comments 10/07/2020 7:18 AM 10/07/2020 1:41 PM Care Teams Meat And Seafood Clerk Relationship Specialty Start Date End Date Yunior Woodard MD PCP - General Family Medicine 07/24/20
[2024-08-16 12:43] LABS: Alanine Aminotransferase 21 U/L (6-35); Albumin Level 4.5 g/dL (3.5-5.1); Alkaline Phosphatase 76 U/L (38-126); Anion Gap 10 mmol/L (4-12); Aspartate Amino Transferase 43 U/L (14-36); Bilirubin,Total 0.5 mg/dL (0.2-1.3); Blood Urea Nitrogen 20 mg/dL (7-17); Calcium 9.2 mg/dL (8.4-10.2); Carbon Dioxide 23 mmol/L (22-30); Chloride 102 mmol/L (98-107); Cholesterol 257 mg/dL (0-200); Estimated Glomerular Filt Rate 52; Glucose 118 mg/dL (65-110); HDL Direct 48 mg/dL; Iron 168 ug/dL (37-170); Potassium 4.8 mmol/L (3.4-5.0); Sodium 135 mmol/L (137-145); Total Protein 7.9 g/dL (6.3-8.2); Triglycerides 139 mg/dL (<150)
[2024-08-16 12:54] LABS: LDL Cholesterol Direct 163 mg/dL
[2024-08-16 12:55] LABS: Percent Iron Saturation 43 % (20-50)
[2024-08-16 13:00] LABS: Free T4 Free Thyroxine 1.03 ng/dL (0.78-2.19); Vitamin D 25 Hydroxy 39.7 ng/mL
[2024-08-16 13:21] LABS: Creatinine Urine 59.5 mg/dL
[2024-08-16 13:25] LABS: MALB Creatinine Ratio 15.3 mg/g (0-30); Microalbumin Urine Random 9.1 mg/L (0-16.7)
[2024-08-16 13:53] LABS: Folic Acid 7.5 ng/mL (2.76->20)
== END 2024-08-16 10:36 | disposition home or self-care (01) ==
LOC: ANHLAB 10:38
PROVIDERS: PCP Nurse Practitioner Family; Visit Provider Internal Medicine Hematology & Oncology
DX: E11.65 Type 2 diabetes mellitus with hyperglycemia (principal); E56.9 Vitamin deficiency, unspecified; E78.2 Mixed hyperlipidemia; I10 Essential (primary) hypertension; Z79.4 Long term (current) use of insulin; D64.9 Anemia, unspecified
CPT/HCPCS: 36415; 80047; 80053; 80061; 82043; 82306; 82607; 82728; 82746; 83540; 83550; 84439; 84443; 85025

== ENCOUNTER 2024-08-30 10:20 | Outpatient (CLI) | payer MEDICARE, SELFPAY ==
--- NOTE | ~2024-08-30 | PE_ITS ---
EXAMINATION: PET skull to mid thigh DATE: 08/30/2024 12:20 INDICATION: Suspicious pulmonary nodule detected on CT examination dated 11/02/2023 TECHNIQUE: Blood glucose level was 111 mg/dL. 10.7 mCi of 18-fluorodeoxyglucose (18-FDG) was administ ered i.v. Low dose computed tomography (CT) images were acquired from the base of the brain to the proximal thi ghs for attenuation correction and anatomic localization. Positron emission tomography (PET) images were acquired in the same distribution. Automated exposure control technique was employed. The dose-length product was 746.46mGy-cm. COMPARISON: None. Reference is made to a chest CT dated 11/02/[address] examination of the abdomen and pelvis dated 05/25/2024 FINDINGS: Head/neck: Increased activity is identified within a nonpathologically enlarged intraglandular right parotid lym ph node with an SUV max of 5.7. This lymph node measures 6.8 mm in short axis dimension for which focused ultrasound may be performed for further evaluation. Chest: The left apical pulmonary nodule demonstrated an SUV max of 10.2, for which malignancy is suspected. This abnormality measures 12.7 x 17.1 mm for which tissue sampling is recommended. No additional radiotracer uptake is identified within the remainder of the chest. No uptake is present within the mediastinum. No additional pulmonary nodules are present. Abdomen/pelvis/proximal thighs: Physiologic uptake is identified within the small and large bowel, as well as within the bilateral ki dneys, visualized ureters and bladder. Musculoskeletal: Increased radiotracer uptake is identified along the superficial soft tissues of the anterior inferio r abdominal pelvic wall, to the left of midline within SUV max of 4.5, without a corresponding abnorm ality on localizing CT scan. IMPRESSION: Findings within the left lung apex for which a malignancy is suspected and for which tissue sampling is recommended. No additional abnormal radiotracer uptake is identified within the chest, abdomen or pelvis. Focused ultrasound of the right parotid gland is recommended as follow-up for further evaluation of t he nonpathologically enlarged lymph node to ascertain morphology and for possible biopsy. At 3, but I artery dictated. Kidneys take a look at it and make sure there is no clearing abnormalities spines questionable U Shine n addendum if needed centimeters in the past. I am no I am not more so that was just [place] thin g we had made the remainder of indeterminate Reviewed, dictated and finalized at location A. IMPRESSION: Findings within the left lung apex for which a malignancy is suspected and for which tissue sampling is recommended. No additional abnormal radiotracer uptake is identified within the chest, abdom en or pelvis. Focused ultrasound of the right parotid gland is recommended as follow-up for f urther evaluation of the nonpathologically enlarged lymph node to ascertain mor phology and for possible biopsy. At 3, but I artery dictated. Kidneys take a look at it and make sure there is no clearing abnormalities spin es questionable U Neo addendum if needed centimeters in the past. I am no I a m not more so that was just [place] thing we had made the remainder of inde terminate
--- OUTSIDE RECORDS SUMMARY | 2024-08-30 10:29 | XMS_ITS | Encounter Summary ---
Author Organization [facility] [place] [facility] Address [address] [place] [address] Care Team Providers Care Dressmaking Teacher Name Role Phone Yunior Woodard MD Primary Care Provider [phone] Encounter Details Date Type Department Care Team ([facility] Contact Info) Description 08/27/2024 Orders Only [facility] Oncology and Hematology [address] [place] [address] Ford Langley MD [address] [place] [address] [employer] [address] [place] [phone] Social History Tobacco Use Types Packs/Day Years Used Date Smoking Tobacco: Every Day Cigarettes 1 55.8 Started: 10/25/1968 Smokeless Tobacco: Never Alcohol Use Standard Drinks/Week Comments Yes 0 (1 standard drink = 0.6 oz pur e alcohol) sometimes 1 beer in 4 months Comments Unknown Sex and Gender Information Value Date Recorded Sex Assigned at Not on file Legal Sex Female 2:17 PM BODY HANGER Gender Identity Not on file Sexual Orientation Not on file documented as of this encounter Plan of Treatment Upcoming Encounters Date Type Department Care Team ([facility] Contact Info) Description 09/06/2024 4:30 PM CDT Telephone Check Up [facility] Oncology and Hematology - [place] [address] [place] [address] Ford Langley MD [address] [place] [address] [employer] [address] [place] [phone] documented as of this encounter Procedures Procedure Name Priority Date/Time Associated Diagnosis Comments BASIC METABOLIC PANEL Routine 08/16/2024 3:44 PM CDT CBC WITH DIFFERENTIAL Routine 08/16/2024 3:37 PM CDT COMPREHENSIVE METABOLIC PANEL Routine 08/16/2024 3:36 PM CDT documented in this encounter Results * BASIC METABOLIC PANEL (08/16/2024 3:44 PM CDT) Blood us Ford Langley MD CHEMISTRY ORDERABLES Final Resu lt * CBC WITH DIFFERENTIAL (08/16/2024 3:37 PM CDT) Blood us Ford Langley MD HEMATOLOGY ORDERABLES Final Res ult * COMPREHENSIVE METABOLIC PANEL (08/16/2024 3:36 PM CDT) Blood us Ford Langley MD CHEMISTRY ORDERABLES Final Resu lt documented in this encounter Visit Diagnoses Not on filedocumented in this encounter Care Teams Dressmaking Teacher Relationship Specialty Start Date End Date Yunior Woodard MD [address] [place] [id number] PCP - General Family Practice 03/15/22 documented as of this encounter
--- OUTSIDE RECORDS SUMMARY | 2024-08-30 10:29 | XMS_ITS | Clinical Summary ---
Author Organization [facility] Kelsi Hunt Address [address] [place] [address] Care Team Providers Care Harbor Department Manager Name Role Phone Yunior Woodard MD Primary Care Provider [phone] Allergies Active Allergy Reactions Criticality Noted Date [...] Encounters Date Type Department Care Team Description 08/27/2024 Orders Only [facility] Oncology and Hematology - [address] [address] [place] [phone] Ford Langley MD 08/20/2024 3:45 PM CDT Office Visit [facility] Oncology and Hematology [facility] [address] [place] [address] Ford Langley MD Lung nodule (Primary Dx) 07/18/2024 External Device Data STL ABSTRACTION Provider, Abstract 07/17/2024 External Device Data ST[facility] ABSTRACTION Provider, Abstract from Last 3 Months Family History Medical History Relation Name Comments No Known Problems Brother No Known Problems Father No Known Problems Mother Relation Name Status Comments Brother Alive Father Alive Mother Social History Tobacco Use Types Packs/Day Years Used Date Smoking Tobacco: Every Day Cigarettes 1 55.8 Started: [birth year]/25/1968 Smokeless Tobacco: Never Tobacco Cessation:Ready to Q uit: Not Asked; Counseling Given: Not Answered Alcohol Use Standard Drinks/Week Comments Yes 0 (1 standard drink = 0.6 oz pur e alcohol) sometimes 1 beer in 4 months Comments Unknown Sex and Gender Information Value Date Recorded Sex Assigned at Not on file Legal Sex Female 2:17 PM BILLET SHEARER Gender Identity Not on file Sexual Orientation Not on file Last Filed Vital Signs Vital Sign Reading Time Taken Comments Blood Pressure 132/67 08/20/2024 3:08 PM CDT Pulse 86 08/20/2024 3:08 PM CDT Temperature 36.6 C (97.8 F) 08/20/2024 3:08 PM CDT Respiratory Rate 15 08/20/2024 3:08 PM CDT Oxygen Saturation 97% 08/20/2024 3:08 PM CDT Inhaled Oxygen Concentration - - Weight 76.1 kg (167 lb 12.8 oz) 08/20/2024 3:08 PM CDT Height 165.1 cm (5' 5) 02/23/2022 3:15 PM BILLET SHEARER Body Mass Index 27.92 02/23/2022 3:15 PM BILLET SHEARER Plan of Treatment Upcoming Encounters Date Type Department Care Team (Late st Contact Info) Description 09/06/2024 4:30 PM CDT Telephone Check Up [facility] Oncology and Hematology [place] [address] [place] [phone] Ford Langley MD [address] [facility] [employer] [address] [place] [phone] Health Maintenance Due Date Last Done [...] 2015 OSTEOPOROSIS SCREENING 08/08/2020 INFLUENZA VACCINE (#1) 2024 COLORECTAL SCREENING 10/07/2030 10/07/2020, 10/08/19 21 Colorectal Cancer Screening 10/07/2030 Procedures Procedure Name Priority Date/Time Associated Diagnosis Comments BASIC METABOLIC PANEL Routine 08/16/2024 3:44 PM CDT CBC WITH DIFFERENTIAL Routine 08/16/2024 3:37 PM CDT COMPREHENSIVE METABOLIC PANEL Routine 08/16/2024 3:36 PM CDT from Last 3 Months Results * BASIC METABOLIC PANEL (08/16/2024 3:44 PM CDT) Blood us Ford Langley MD CHEMISTRY ORDERABLES Final Resu lt * CBC WITH DIFFERENTIAL (08/16/2024 3:37 PM CDT) Blood Ford Langley MD HEMATOLOGY ORDERABLES Final Res ult * COMPREHENSIVE METABOLIC PANEL (08/16/2024 3:36 PM CDT) Blood us Ford Langley MD CHEMISTRY ORDERABLES Final Resu lt from Last 3 Months Insurance [facility] [id number] Care Teams Harbor Department Manager Relationship Specialty Start Date End Date Yunior Woodard MD [address] [place] [address] PCP - General Family Practice 03/15/22
--- OUTSIDE RECORDS SUMMARY | 2024-08-30 10:29 | XMS_ITS | Referral Summary ---
Author Organization [facility] at the [facility] Center Address [address] [place] [address] Care Team Providers Care Crm Functional Analyst Name Role Phone Yunior Woodard MD Primary Care Provider [phone] Allergies Active Allergy Reactions Criticality Noted Date [...] (09/02/2020): Added automatically from request for surgery [id number] Carotid stenosis 08/08/2020 Assessment & Plan (08/08/2020 [...] on file Legal Sex Female 6:50 PM ACCOUNTS PAYABLE COORDINATOR Gender Identity Not on file Sexual Orientation Not on file Last Filed Vital Signs Vital Sign Reading Time Taken Comments Blood Pressure 179/102 03/19/2021 8:23 AM ACCOUNTS PAYABLE COORDINATOR Pulse 84 03/19/2021 8:23 AM ACCOUNTS PAYABLE COORDINATOR Temperature 36.4 C (97.5 F) 10/07/2020 9:07 AM CDT Respiratory Rate 18 10/07/2020 9:27 AM CDT Oxygen Saturation 100% 10/07/2020 9:27 AM CDT Inhaled Oxygen Concentration - - Weight 86.2 kg (190 lb) 03/19/2021 8:23 AM ACCOUNTS PAYABLE COORDINATOR Height 160 cm (5' 3) 03/19/2021 8:23 AM ACCOUNTS PAYABLE COORDINATOR Body Mass Index 33.66 03/19/2021 8:23 AM ACCOUNTS PAYABLE COORDINATOR Plan of Treatment Not on file Insurance [facility] MEDICARE ADVANTAGE [facility] MEDICARE ADVANTAGE [facility] MEDICARE ADVANTAGE Advance Directives For more information, please contact: [phone] * Full Code (Latest Code Status on File) Date Activated Date Inactivated Comments 10/07/2020 7:18 AM 10/07/2020 1:41 PM Care Teams Crm Functional Analyst Relationship Specialty Start Date End Date Yunior Woodard MD PCP - General Family Medicine 07/24/20
--- OUTSIDE RECORDS SUMMARY | 2024-08-30 10:29 | XMS_ITS | Clinical Summary ---
Author Organization [facility] at the [facility] Address [address] [place] [address] Care Team Providers Care Battery Engineer Name Role Phone Yunior Woodard MD Primary Care Provider [phone] Allergies Active Allergy Reactions Criticality Noted Date [...] (09/02/2020): Added automatically from request for surgery [id number] Carotid stenosis 08/08/2020 Assessment & Plan (08/08/2020 [...] on file Legal Sex Female 6:50 PM MAINTENANCE SPECIALIST Gender Identity Not on file Sexual Orientation Not on file Obstetrics History Last Filed Vital Signs Vital Sign Reading Time Taken Comments Blood Pressure 179/102 03/19/2021 8:23 AM MAINTENANCE SPECIALIST Pulse 84 03/19/2021 8:23 AM MAINTENANCE SPECIALIST Temperature 36.4 C (97.5 F) 10/07/2020 9:07 AM CDT Respiratory Rate 18 10/07/2020 9:27 AM CDT Oxygen Saturation 100% 10/07/2020 9:27 AM CDT Inhaled Oxygen Concentration - - Weight 86.2 kg (190 lb) 03/19/2021 8:23 AM MAINTENANCE SPECIALIST Height 160 cm (5' 3) 03/19/2021 8:23 AM MAINTENANCE SPECIALIST Body Mass Index 33.66 03/19/2021 8:23 AM MAINTENANCE SPECIALIST Plan of Treatment Not on file Insurance [facility] MEDICARE ADVANTAGE [facility] MEDICARE ADVANTAGE [facility] MEDICARE ADVANTAGE Advance Directives For more information, please contact: [phone] * Full Code (Latest Code Status on File) Date Activated Date Inactivated Comments 10/07/2020 7:18 AM 10/07/2020 1:41 PM Care Teams Battery Engineer Relationship Specialty Start Date End Date Yunior Woodard MD PCP - General Family Medicine 07/24/20
== END 2024-08-30 10:21 | disposition home or self-care (01) ==
PROVIDERS: Visit Provider Internal Medicine Hematology & Oncology
DX: R91.1 Solitary pulmonary nodule (principal)
CPT/HCPCS: 78815; A9552

== ENCOUNTER 2024-10-02 08:59 | Outpatient (CLI) | payer MEDICARE, SELFPAY ==
[2024-09-25 13:37] VITALS: BMI 28.3
--- NOTE | 2024-09-25 13:37 | PC.NURSE ---
Pre Radiology instructions Report to the outpatient pretty senthildarien on date _[id number]_ at time _0900_ for procedure Time: _1100_ YOU MAY BE MONITORED AT HOSPITAL FOR UP TO 4 HOURS AFTER YOUR PROCEDURE. A visitor will be allowed to accompany the patient into the hospital. You and your visitor will be asked to self-screen and do not enter if you have any COVID symptoms. A mask is OPTIONAL within the hospital. Patients are to have no food or drink 6 hours prior to procedure time Driving will be restricted after the procedure, you must have a person to drive you home. Labs will be drawn in preop area and once reviewed, you will be taken to radiology area for procedure. When the procedure is completed, you will be taken to outpatient where you will be monitored for several hours. You may have one visitor in this area. Other than holding anti-coagulants, patient may take other medication(s) as scheduled. Prior to your appointment date patients are instructed to hold anti-coagulants after discussing with ordering provider to stop. If unable to discontinue anti-coagulants please notify radiologist. ? No aspirin or warfarin (Coumadin) for 7 days prior to the procedure. ? No clopidogrel (Plavix), ticagrelor (Brilinta), prasugrel (Effient) or dabigatran (Pradaxa) for 5 days prior to the procedure. ? No rivaroxaban (Xarelto), apixaban (Eliquis), dipyridamole (Aggrenox or Persantine) or cilostazol (Pletal) for 2 days prior to the procedure. Medications to discontinue per physician: __Aspirin Date to take last dose: __Today Please leave all valuables, including medications, at home the day of procedure. The hospital will not accept responsibility for valuables. Wear comfortable, loose fitting clothing.? Follow any additional instructions given to you from ordering provider. Telephone instructions given to __Denise__and asked if any additional questions and then verbalized understanding. Patient advised to call scheduling provider office or registration scheduling [phone] if any additional questions.
[2024-10-02] VITALS (10 sets, daily range): BP systolic 109–140; BP diastolic 51–99; PULSE 73–88; RESP 14–18; TEMP 36.4–36.6; O2SAT 97–100
--- NOTE | ~2024-10-02 | XR_ITS ---
EXAMINATION: XR chest 1V portable DATE: 10/02/2024 15:05 INDICATION: Status post left lung biopsy TECHNIQUE: frontal view of the chest was obtained. COMPARISON: Chest radiographs from the day on 10/02/2024 FINDINGS: Again seen is the biopsied nodule projecting over the first rib at the lateral left apex. The previou sly seen tiny left pleural effusion has resolved. Remainder the lungs are clear with no other airspac e opacities, ulnar edema or pleural effusion. Heart size is normal. Bone island at the anterior left sixth rib. IMPRESSION: 1. Resolution of the prior tiny left pneumothorax post percutaneous biopsy of a left upper lobe nodul e concerning for malignancy. Reviewed, dictated and finalized at location A. IMPRESSION: 1. Resolution of the prior tiny left pneumothorax post percutaneous biopsy of a left upper lobe nodule concerning for malignancy.
--- NOTE | ~2024-10-02 | XR_ITS ---
EXAMINATION: XR chest 1V DATE: 10/02/2024 11:35 INDICATION: Status post left lung biopsy TECHNIQUE: frontal view of the chest was obtained. COMPARISON: Chest radiograph dated 01/05/[address] dated 11/02/2023 FINDINGS: Nodular opacity at the lateral left apex corresponding to the biopsied nodule which concerning for pr imary bronchogenic carcinoma. No other airspace opacities, pulmonary edema, pleural effusion or pneum othorax. The cardiomediastinal silhouette is normal. Bone island at the anterior left sixth rib. IMPRESSION: 1. No pneumothorax, pleural effusion or other acute cardiopulmonary disease post percutaneous biopsy of a left apical nodule which is concerning for primary odontogenic carcinoma. Reviewed, dictated and finalized at location A. IMPRESSION: 1. No pneumothorax, pleural effusion or other acute cardiopulmonary disease pos t percutaneous biopsy of a left apical nodule which is concerning for primary o dontogenic carcinoma.
--- NOTE | ~2024-10-02 | XR_ITS ---
XR chest 1V portable 10/02/2024 12:37 Indication: Post lung biopsy Procedure: AP portable chest Comparison: 10/02/2024 Findings: Focal opacity left apex more prominent than on prior examination, possibly hemorrhage postb iopsy. There is a small left apical pneumothorax. Heart size normal. No pleural effusion, edema Impression: 1: Tiny left apical pneumothorax. Reviewed, dictated and finalized at location A. Impression: 1: Tiny left apical pneumothorax.
--- NOTE | ~2024-10-02 | CT_ITS ---
EXAMINATION: CT biopsy lung w/imaging DATE: 10/02/2024 11:33 INDICATION: Left lung biopsy TECHNIQUE: The procedure including the risks and benefits was discussed with the patient. Risks discu ssed included infection, approximately 1/20 risk of symptomatic hemorrhage beyond mild hemoptysis, ap proximately 1/3 risk of pneumothorax, and approximately 1/10 risk of pneumothorax severe enough to wa rrant chest tube placement. The patient understood the risks and agreed to proceed. The patient was p laced prone. The skin overlying the posterior left upper thorax was prepped and draped in sterile fa shion. Anesthetic was administered with 1% lidocaine subcutaneously. A 19 gauge outer needle was ad vanced under CT guidance to the lesion of interest. A 20 gauge core biopsy needle was then used to ob tain 4 core biopsy specimens. The needle was removed and the entry site was cleaned and dressed. The re were no immediate complications. The dose-length product was 109.67 mGy-cm. FINDINGS: CT images demonstrate the outer needle tip adjacent to the previously noted 1.7 x 1.3 cm FD G avid left apical nodule. IMPRESSION: 1. Successful CT-guided biopsy of in the 1.7 x 1.3 cm FDG avid left apical nodule of concern. Reviewed, dictated and finalized at location A. IMPRESSION: 1. Successful CT-guided biopsy of in the 1.7 x 1.3 cm FDG avid left apical nodu le of concern.
--- OUTSIDE RECORDS SUMMARY | 2024-10-02 09:13 | XMS_ITS | Patient Health Record ---
Author Organization [facility] Address [address] [place], [place] [id number] Care Team Providers Care Qa Tester Name Role Phone COTY GROVE Unavailable [phone] Yunior Woodard Unavailable Unavailable Allergies Allergen (clinical drug ingredient) Drug/Non Drug Allergy documented on EMR Reaction Allergy Type Onset Date Status Substance with penicillin structure and antibacterial mechanism of action (substance) Penicillins Unknown Drug Allergy 10/24/2013 active Reason For Referral No Information Medications Medication SIG (Take, Route, Frequency, Duration) Notes Start Date End Date Status Ferrous Sulfate 325 (65 Fe) MG 1 tablet Orally Three times a Week Active Lisinopril 10 MG 1 tablet Orally Once a day Active diphenhydrAMINE HCl 25 MG 1 capsule at b edtime as needed Orally Once a day Active Gabapentin 100 MG 1 capsule at bedtime Orally Once a day Active Rosuvastatin Calcium 40 MG 1 tablet Oral ly Once a day Active Acetaminophen 325 MG 1 tablet as needed Orally every 6 hrs Active Fluoxetine Active ALPRAZolam 0.5 MG 1 tablet Orally Twic e a day Active Cholecalciferol 25 MCG (1000 UT) 1 capsule Orally Once a day Active metFORMIN HCl 500 MG 1 tablet with a becca l Orally Once a day Active Semaglutide (1 MG/DOSE) 4 MG/3ML as directed Subcutaneous Act sigifredo Fluticasone Furoate 27.5 MCG/SPRAY 2 sprays (1 spray in each nostril) Nasally Once a day Active Magnesium Oxide 400 MG 1 tablet with sean d Orally Once a day Active Glucose (Dextrose) 50 % as directed Intravenous Active Immunizations Vaccine Route Administration Date Status Comme nts Influenza, high dose seasonal Unknown 05/21/2024 Refuse d Pneumococcal conjugate PCV 13 Unknown 05/21/2024 Refuse d Vital Signs Height-cm 162.56 cm 05/21/2024 Weight-kg 86.18 kg 05/21/2024 Height 64.00 in 05/21/2024 Weight 190 lbs 05/21/2024 BMI 32.61 kg/m2 05/21/2024 Encounters Encounter Location Date Provider Diagnosis [facility] [place] [address] [place], [place] [id number] 05/21/2024 COTY GROVE Other eccrine sweat disorders [...] the Amputation Prevention Guide. Plan Of Treatment No Information Insurance Providers Payer Name Payer Address Payer Phone Subscriber Number Group Number Insured Name Patient Relationship to Insured Coverage Start Date Coverage End Date [facility] [address] [address] [place], [place] [id number] WALKER, MOE Self - patient is the insured Medical (General) History Medical History History ICD Code Blood transfusion neuropathy stroke Leg/Feet cramps Liver disease Diabetic restless leg syndrome Surgical History Surgery Date(Month/Year) plantar fasciitis
--- OUTSIDE RECORDS SUMMARY | 2024-10-02 09:13 | XMS_ITS | Referral Summary ---
Author Organization [facility] at the [facility] Office Center Address [address] [place] [address] Care Team Providers Care Partition Notcher Name Role Phone Yunior Woodard MD Primary Care Provider [phone] Allergies Active Allergy Reactions Criticality Noted Date [...] (09/02/2020): Added automatically from request for surgery [id number] Carotid stenosis 08/08/2020 Assessment & Plan (08/08/2020 [...] on file Legal Sex Female 6:50 PM CYTOTECHNOLOGIST/CYTOLOGY SUPERVISOR Gender Identity Not on file Sexual Orientation Not on file Last Filed Vital Signs Vital Sign Reading Time Taken Comments Blood Pressure 179/102 03/19/2021 8:23 AM CYTOTECHNOLOGIST/CYTOLOGY SUPERVISOR Pulse 84 03/19/2021 8:23 AM CYTOTECHNOLOGIST/CYTOLOGY SUPERVISOR Temperature 36.4 C (97.5 F) 10/07/2020 9:07 AM CDT Respiratory Rate 18 10/07/2020 9:27 AM CDT Oxygen Saturation 100% 10/07/2020 9:27 AM CDT Inhaled Oxygen Concentration - - Weight 86.2 kg (190 lb) 03/19/2021 8:23 AM CYTOTECHNOLOGIST/CYTOLOGY SUPERVISOR Height 160 cm (5' 3) 03/19/2021 8:23 AM CYTOTECHNOLOGIST/CYTOLOGY SUPERVISOR Body Mass Index 33.66 03/19/2021 8:23 AM CYTOTECHNOLOGIST/CYTOLOGY SUPERVISOR Plan of Treatment Not on file Insurance [facility] MEDICARE ADVANTAGE [facility] MEDIC[facility] ADVANTAGE [facility] MEDIC[facility] ADVANTAGE Advance Directives For more information, please contact: [phone] * Full Code (Latest Code Status on File) Date Activated Date Inactivated Comments 10/07/2020 7:18 AM 10/07/2020 1:41 PM Care Teams Partition Notcher Relationship Specialty Start Date End Date Yunior Woodard MD PCP - General Family Medicine 07/24/20
--- OUTSIDE RECORDS SUMMARY | 2024-10-02 09:13 | XMS_ITS | Clinical Summary ---
Author Organization [facility] Kelsi [facility] Address [address] [facility] [address] [place] [address] Care Team Providers Care Supervising Deputy Name Role Phone Yunior Woodard MD Primary Care Provider [phone] Allergies Active Allergy Reactions Criticality Noted Date [...] Encounters Date Type Department Care Team Description 09/12/2024 External Device Data [facility] ABSTRACTION Provider, Abstract 09/12/2024 Telephone [facility] Oncology and H[facility]ology - [place] [address] [place] [address] Ford Langley MD Biospy Appointment 09/12/2024 External Device Data [facility] ABSTRACTION Provider, Abstract 09/11/2024 External Device Data [facility] ABSTRACTION Provider, Abstract 09/06/2024 4:30 PM CDT Telephone Check Up [facility] [address] [place] [address] Ford Langley MD Lung nodule (Primary Dx) 08/27/2024 Orders Only [facility] [address] [place] [address] Ford Langley MD 08/20/2024 3:45 PM CDT Office Visit [facility] [address] [place] [address] Ford Langley MD Lung nodule (Primary Dx) [...] Date Smoking Tobacco: Every Day Cigarettes 1 55.9 Started: 10/25/1968 Smokeless Tobacco: Never Tobacco Cessation:Ready to Q uit: Not Asked; Counseling Given: Not Answered Alcohol Use Standard Drinks/Week Comments Yes 0 (1 standard drink = 0.6 oz pur e alcohol) sometimes 1 beer in 4 months Comments Unknown Sex and Gender Information Value Date Recorded Sex Assigned at Not on file Legal Sex Female 2:17 PM SUPERVISOR SHOW OPERATIONS Gender Identity Not on file Sexual Orientation [...] 165.1 cm (5' 5) 02/23/2022 3:15 PM SUPERVISOR SHOW OPERATIONS Body Mass Index 27.92 02/23/2022 3:15 PM SUPERVISOR SHOW OPERATIONS Plan of Treatment Upcoming Encounters Date Type Department Care Team (Late st Contact Info) Description 10/09/2024 4:30 PM CDT Telephone Check Up [facility] - [place] [address] [facility] [address] [place] [address] Ford Langley MD [address] [facility] [address] [place] [address] Health Maintenance Due Date Last [...] Resu lt from Last 3 Months Insurance Care Teams Supervising Deputy Relationship Specialty Start Date End Date Yunior Woodard MD [address] [place] [address] PCP - General Family Practice 03/15/22
--- OUTSIDE RECORDS SUMMARY | 2024-10-02 09:13 | XMS_ITS | Clinical Summary ---
Author Organization [facility] at the [facility] Office Center Address [address] [place] [address] Care Team Providers Care Patternmaker Hand Name Role Phone Yunior Woodard MD Primary Care Provider [phone] Allergies Active Allergy Reactions Criticality Noted Date [...] (09/02/2020): Added automatically from request for surgery [id number] Carotid stenosis 08/08/2020 Assessment & Plan (08/08/2020 [...] Hyperlipidemia HTN (hypertension) Type 2 diabetes mellitus Family History Medical History Relation Name Comments [...] on file Legal Sex Female 6:50 PM ASSESSMENT COUNSELOR Gender Identity Not on file Sexual Orientation Not on file Obstetrics History Last Filed Vital Signs Vital Sign Reading Time Taken Comments Blood Pressure 179/102 03/19/2021 8:23 AM ASSESSMENT COUNSELOR Pulse 84 03/19/2021 8:23 AM ASSESSMENT COUNSELOR Temperature 36.4 C (97.5 F) 10/07/2020 9:07 AM CDT Respiratory Rate 18 10/07/2020 9:27 AM CDT Oxygen Saturation 100% 10/07/2020 9:27 AM CDT Inhaled Oxygen Concentration - - Weight 86.2 kg (190 lb) 03/19/2021 8:23 AM ASSESSMENT COUNSELOR Height 160 cm (5' 3) 03/19/2021 8:23 AM ASSESSMENT COUNSELOR Body Mass Index 33.66 03/19/2021 8:23 AM ASSESSMENT COUNSELOR Plan of Treatment Not on file Insurance [facility] MEDICARE ADVANTAGE [facility] MEDICARE ADVANTAGE [facility] MEDICARE ADVANTAGE Advance Directives For more information, please contact: [phone] * Full Code (Latest Code Status on File) Date Activated Date Inactivated Comments 10/07/2020 7:18 AM 10/07/2020 1:41 PM Care Teams Patternmaker Hand Relationship Specialty Start Date End Date Yunior Woodard MD PCP - General Family Medicine 07/24/20
--- OUTSIDE RECORDS SUMMARY | 2024-10-02 09:13 | XMS_ITS ---
Author Organization [facility] Address [address] [place], [place] [address] Care Team Providers Care Painter Maintenance Name Role Phone COTY GROVE Unavailable [phone] Yunior Woodard Unavailable Unavailable REASON FOR VISIT *Porokeratosis check Encounters Encounter Location Date Provider Diagnosis [facility] [place] [address] [place], [place] [phone] 06/04/2024 COTY GROVE Plan Of Treatment No Information Progress Notes * LAURA ROSAISEDOB:1955 (69 yo F)Acc No.[id number]:06/04/2024 Patient: MOE ONTIVEROS Provider: Matthias Grove DPM :1955 A ge:68 Y S ex:Female Date:06/04/2024 Address:[address] [place], [place] [id number] Subjective: * Chief Complaints: * 1 . *Porokeratosis check. * Medical History: Objective: * Vitals: Assessment: Plan: * Treatment: * Billing Information: * Visit Code: * Procedure Codes: * Electronic signature of COTY GROVE DPM on 10/02/2024 at 09:12 AM CDT Sign off status: Pending * Provider: Matthias Grove DPM Date: 0 06/04/2024 Generated for Rhonda dunbar/Saurabh/eTransmitting on: 0 10/02/2024 09:12 AM CDT
[2024-10-02 09:32] LABS: Platelet Count Result 143 k/mm3 (150-375)
[2024-10-02 09:42] LABS: INR 1.0; Prothrombin Time 13.3 Seconds (11.1-14.7)
--- NOTE | 2024-10-02 11:25 | S_PTH ---
PATIENT: Trish Patel LOC: [facility] U#:[id number] AGE/SX: 69/F ROOM: RE10/02/[address]: Robert Mohr MD : 1955 BED: DIS: 10/02/2024 SPEC #: [id number] RECD: 10/02/24 12:11 STATUS: DWAYNE REJuan A #: [id number] DARRELL: 10/02/24 11:[address]: Ford Langley DEPT: [facility] Surgical RECD BY: Roger Jj ENTERED: 10/02/24 12:12 SP TYPE: Surgical OTHR DR: Robert Mohr MD Yunior Ty Woodard MD Tissues: A - Lung Biopsy Procedures: P63 PAX-8 TTF Unstained Slides Hematoxylin and Eosin Stain Estrogen Receptor Immuno Gross and Microscopic Level 4 CDX2 CK 20 CK 7 ELIDA-3 Napsin A
== END 2024-10-02 15:20 | disposition home or self-care (01) ==
PROVIDERS: PCP Family Medicine; Referring Provider Internal Medicine Hematology & Oncology; Visit Provider Radiology Diagnostic Radiology
PROC: BB24ZZZ Computerized Tomography (CT Scan) of Bilateral Lungs (ICD-10-PCS; CPT 32408; principal; 2024-10-02 11:00)
DX: R91.1 Solitary pulmonary nodule (principal)
CPT/HCPCS: 32408; 36415; 71045; 85049; 85610; 88305; 88342

== ENCOUNTER 2024-10-17 08:51 | Outpatient (CLI) | payer MEDICARE, SELFPAY ==
--- OUTSIDE RECORDS SUMMARY | 2024-06-04 03:40 | XMS_ITS ---
Author Organization [facility] Address [address] [place], [place] [id number] Care Team Providers Care Lock Plater Name Role Phone COTY GROVE Unavailable [phone] Yunior Woodard Unavailable Unavailable REASON FOR VISIT *Porokeratosis check Encounters Encounter Location Date Provider Diagnosis [facility] [place] [address] [place], [place] [id number] 06/04/2024 COTY GROVE Plan Of Treatment No Information Progress Notes * LAURA ROSAISEDOB:1955 (69 yo F)Acc No.[id number]:06/04/2024 Patient: MOE ONTIVEROS Provider: Matthias Grove DPM :1955 A ge:68 Y S ex:Female Date:06/04/2024 Address:[address] [place], [place] [id number] Subjective: * Chief Complaints: * 1 . *Porokeratosis check. * Medical History: Objective: * Vitals: Assessment: Plan: * Treatment: * Billing Information: * Visit Code: * Procedure Codes: * Electronic signature of COTY GROVE DPM on 10/17/2024 at 09:01 AM CDT Sign off status: Pending * Provider: Matthias Grove DPM Date: 0 06/04/2024 Generated for Rhonda dunbar/Saurabh/eTransmitting on: 0 10/17/2024 09:01 AM CDT
--- OUTSIDE RECORDS SUMMARY | 2024-10-17 09:01 | XMS_ITS | Clinical Summary ---
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 WIRING LINEMAN Gender Identity Not on file Sexual Orientation Not on file Obstetrics History Last Filed Vital Signs Vital Sign Reading Time Taken Comments Blood Pressure 179/102 03/19/2021 8:23 AM ELECTRICAL WIRING LINEMAN Pulse 84 03/19/2021 8:23 AM ELECTRICAL WIRING LINEMAN Temperature 36.4 C (97.5 F) 10/07/2020 9:07 AM CDT Respiratory Rate 18 10/07/2020 9:27 AM CDT Oxygen Saturation 100% 10/07/2020 9:27 AM CDT Inhaled Oxygen Concentration - - Weight 86.2 kg (190 lb) 03/19/2021 8:23 AM ELECTRICAL WIRING LINEMAN Height 160 cm (5' 3) 03/19/2021 8:23 AM ELECTRICAL WIRING LINEMAN Body Mass Index 33.66 03/19/2021 8:23 AM ELECTRICAL WIRING LINEMAN Plan of Treatment Not on file Insurance [facility] MEDICARE ADVANTAGE [facility] MEDICARE ADVANTAGE [facility] MEDIC[facility] ADVANTAGE Advance Directives For more information, please contact: [phone] * Full Code (Latest Code Status on File) Date Activated Date Inactivated Comments 10/07/2020 7:18 AM 10/07/2020 1:41 PM Care Teams Stenotype Machine Operator Relationship Specialty Start Date End Date Yunior Woodard MD PCP - General Family Medicine 07/24/20
--- OUTSIDE RECORDS SUMMARY | 2024-10-17 09:01 | XMS_ITS | Patient Health Record ---
Author Organization [facility] Address [address] [place], [place] [address] Care Team Providers Care Stunner And Shackler Name Role Phone COTY GROVE Unavailable [phone] Yunior Woodard Unavailable Unavailable Allergies Allergen (clinical [...] Location Date Provider Diagnosis [facility] [place] [address] [place], [place] [id number] 05/21/2024 COTY GROVE Other eccrine sweat disorders [...] Insured Coverage Start Date Coverage End Date [facility] [address] [address] [place], [place] [id number] WALKER, MOE Self - patient is the insured Medical (General) History Medical History History ICD Code Blood transfusion neuropathy stroke Leg/Feet cramps Liver disease Diabetic restless leg syndrome Surgical History Surgery Date(Month/Year) plantar fasciitis
--- OUTSIDE RECORDS SUMMARY | 2024-10-17 09:01 | XMS_ITS | Clinical Summary ---
Author Organization [facility] Kelsi Hunt Address [address] [place] [address] Care Team Providers Care Digital Content Marketing Manager Name Role Phone Yunior Woodard MD Primary Care Provider [phone] Allergies Active Allergy Reactions Criticality Noted Date [...] Encounters Date Type Department Care Team Description 10/09/2024 4:30 PM CDT Telephone Check Up [facility] Oncology and Hematology - [place] [address] [place] [address] Ford Langley MD Malignant neoplasm of upper lobe of left lung (CMS/HCC) (Primary Dx) 10/08/2024 Orders Only [facility] Oncology [facility], [facility] Hematology [facility] [address] [place] [address] Ford Langley MD 10/03/2024 External Device Data STL ABSTRACTION Provider, Abstract 10/02/2024 External Device Data STL ABSTRACTION Provider, Abstract 09/12/2024 External Device Data STL ABSTRACTION Provider, Abstract 09/12/2024 Telephone [facility] Oncology [facility], [facility] Hematology [facility] [address] [place] [address] Ford Langley MD Biospy Appointment 09/12/2024 External Device Data STL ABSTRACTION Provider, Abstract 09/11/2024 External Device Data STL ABSTRACTION Provider, Abstract 09/06/2024 4:30 PM CDT Telephone Check Up [facility] Oncology [facility] [address] [place] [address] Ford Langley MD Lung nodule (Primary Dx) 08/27/2024 Orders Only [facility] Oncology [facility] [address] [place] [address] Ford Langley MD 08/20/2024 3:45 PM CDT Office Visit [facility] Oncology [facility] [address] [place] [address] Ford Langley MD Lung nodule (Primary Dx) [...] Date Smoking Tobacco: Every Day Cigarettes 1 56 Started: [birth year]/25/1968 Smokeless Tobacco: Never Tobacco Cessation:Ready to Q uit: Not Asked; Counseling Given: Not Answered Alcohol Use Standard Drinks/Week Comments Yes 0 (1 standard drink = 0.6 oz pur e alcohol) sometimes 1 beer in 4 months Comments Unknown Sex and Gender Information Value Date Recorded Sex Assigned at Not on file Legal Sex Female 2:17 PM TIRE SPECIALIST Gender Identity Not on file Sexual [...] 165.1 cm (5' 5) 02/23/2022 3:15 PM TIRE SPECIALIST Body Mass Index 27.92 02/23/2022 3:15 PM TIRE SPECIALIST Plan of Treatment Upcoming Encounters Date Type Department Care Team (Late st Contact Info) Description 10/24/2024 11:00 AM CDT Office Visit [facility] Oncology and Hematology - [place] [address] [facility] [address] [place] [address] Ford Langley MD [address] [facility] [address] [place] [address] 10/31/2024 10:15 AM CDT Office Visit [facility] Cardiovas and Thor Surg at [facility] [address] [facility] [address] [place] [address] Mirza Matt MD [address] [facility] [address] [place] [address] 10/31/2024 12:00 PM CDT Appointment [facility] [address] [place] [address] Health Maintenance Due Date Last Done Comments [...] Procedure Name Priority Date/Time Associated Diagnosis Comments BIOPSY Routine 10/02/2024 2:42 PM CDT BASIC METABOLIC PANEL Routine 08/16/2024 3:44 PM CDT CBC WITH DIFFERENTIAL Routine 08/16/2024 3:37 PM CDT COMPREHENSIVE METABOLIC PANEL Routine 08/16/2024 3:36 PM CDT from Last 3 Months Results * BIOPSY (10/02/2024 2:42 PM CDT) us Ford Langley MD PROCEDURE/MINOR SURGICAL ORDERA BLES Final Result * BASIC METABOLIC PANEL (08/16/2024 3:44 PM CDT) Blood us Ford Langley MD CHEMISTRY ORDERABLES Final Resu lt * CBC WITH DIFFERENTIAL (08/16/2024 3:37 PM CDT) Blood us Ford Langley MD HEMATOLOGY ORDERABLES Final Res ult * COMPREHENSIVE METABOLIC PANEL (08/16/2024 3:36 PM CDT) Blood Ford Langley MD CHEMISTRY ORDERABLES Final Resu lt from Last 3 Months Insurance Care Teams Digital Content Marketing Manager Relationship Specialty Start Date End Date Yunior Woodard MD [address] [place] [address] PCP - General Family Practice 03/15/22
--- NOTE | 2024-10-17 13:10 | P.PCNPFT_ITS ---
PFT Procedure Performed PFT Procedure Performed Plethysmography (Lung Vol) Diffusing Cap (DLCO) Flow Vol Loop Spirometry w/o Bronchodil PFT Interpretation This is a pulmonary function test with spirometry, plethysmography and diffusing capacity. The test was performed and results interpreted in accordance with the 2019 and 2005 ATS/ERS Task Force guidelines respectively using the Global Lung Function Initiative-2012 reference equations. Patient demonstrated good effort and cooperation. Reproducibility criteria were met. The quality of the spirometry maneuver was Grade A. Of note, patient had persistent cough throughout the testing. Findings: Spirometry: The contour the inspiratory and expiratory flow tracing are normal. The FVC is 2.63 L, 91% predicted. The FEV1 is 2.04 L, 90% predicted. The FEV1: FVC ratio 77%. Plethysmography: The total lung capacity is 5.04 L, 99% predicted. The f unctional residual capacity is 3.24 L, 112% predicted. The residual volume is 2.42 L, 111% predicted. Diffusing capacity: The diffusing capacity unadjusted for hemoglobin and carboxyhemoglobin is 15.3, 74% predicted. The diffusing capacity adjusted for alveolar volume is 3.80, 88% predicted. Impression: The spirometry is normal without evidence of an obstructive abnormality. The lung volumes are normal. The diffusing capacity is normal. There are no prior studies for comparison
== END 2024-10-17 08:52 | disposition home or self-care (01) ==
PROVIDERS: PCP Family Medicine; Visit Provider Internal Medicine Hematology & Oncology
DX: C34.12 Malignant neoplasm of upper lobe, left bronchus or lung (principal)
CPT/HCPCS: 94375; 94726; 94729

== ENCOUNTER 2024-11-05 07:05 | Outpatient (CLI) | payer MEDICARE, SELFPAY ==
--- NOTE | ~2024-11-05 | US_ITS ---
Clinical History: OTHER CEREBROVASCULAR DISEASE Examination: US carotid duplex BI Comparison: Carotid duplex 07/27/2020 Technique: Grayscale, color, duplex/spectral Doppler sonography carotid and vertebral arteries. Distal CCA and Peak ICA systolic velocities provided. Society of Radiologists in Ultrasound (SRU) consensus criteria utilized, indirectly assessing stenosis by velocities. Findings: Moderate scattered plaque Right side: CCA - 53 cm/sec. ICA - 60 cm/sec. ICA/CCA - 1.1 Left Side: CCA - 63 cm/sec. ICA - 149 cm/sec. ICA/CCA - 2.4 Normal antegrade flow measured bilateral vertebral arteries. IMPRESSION: 1. 50-69% stenosis left ICA. 2. No hemodynamically significant right ICA stenosis (i.e., if any stenosis, less than 50%). 3. Normal bilateral antegrade vertebral artery flow. Stenosis measured by Society of Radiologists in Ultrasound (SRU) criteria. Reviewed, dictated and finalized at location R. IMPRESSION: 1. 50-69% stenosis left ICA. 2. No hemodynamically significant right ICA stenosis (i.e., if any stenosis, l ess than 50%). 3. Normal bilateral antegrade vertebral artery flow. Stenosis measured by Society of Radiologists in Ultrasound (SRU) criteria.
== END 2024-11-05 07:06 | disposition home or self-care (01) ==
LOC: CHSIMG 07:08
PROVIDERS: PCP Family Medicine
DX: R91.8 Other nonspecific abnormal finding of lung field (principal); I67.89 Other cerebrovascular disease; I65.22 Occlusion and stenosis of left carotid artery
CPT/HCPCS: 93880

== ENCOUNTER 2025-01-30 10:44 | Outpatient (CLI) | payer MEDICARE, SELFPAY ==
--- OUTSIDE RECORDS SUMMARY | 2024-05-21 03:00 | XMS_ITS ---
Author Organization [facility] Address [address] [place], [place] [id number] Care Team Providers Care Gun Number Name Role Phone COTY GROVE Unavailable [phone] Yunior Woodard Unavailable Unavailable Allergies Allergen (clinical drug ingredient) Drug/Non Drug Allergy documented on EMR Reaction Allergy Type Onset Date Status Substance with penicillin structure and antibacterial mechanism of action (substance) Penicillins Unknown Drug Allergy 10/24/2013 active REASON FOR VISIT The patient has diabetes mellitus with neuropathy. She gets tiny lumps of skin that she thinks are warts. There is one in particular on the bottom of her left foot behind the 5th toe that is especially painful Medications Medication SIG (Take, Route, Frequency, Duration) Notes Start Date End Date Status Ferrous Sulfate 325 (65 Fe) MG Tablet 1 tablet Orally Three times a Week Active Semaglutide (1 MG/DOSE) 4 MG/3ML Solution Pen-injector as directed Subcutaneous Active Gabapentin 100 MG Capsule 1 capsule at b edtime Orally Once a day Active Glucose (Dextrose) 50 % Solution as directed Intravenous Acti ve metFORMIN HCl 500 MG Tablet 1 tablet wit h a meal Orally Once a day Active Rosuvastatin Calcium 40 MG Tablet 1 tablet Orally Once a day Active Fluoxetine Active ALPRAZolam 0.5 MG Tablet 1 tablet Orally Twice a day Active Lisinopril 10 MG Tablet 1 tablet Orally Once a day Active Acetaminophen 325 MG Tablet 1 tablet as needed Orally every 6 hrs Active diphenhydrAMINE HCl 25 MG Capsule 1 capsule at bedtime as needed Orally Once a day Active Magnesium Oxide 400 MG Tablet 1 tablet with food Orally Once a day Active Cholecalciferol 25 MCG (1000 UT) Capsule 1 capsule Orally Once a day Active Fluticasone Furoate 27.5 MCG/SPRAY Suspension 2 sprays (1 spray in each nostril) Nasally Once a day Active Immunizations Vaccine Route Administration Date Status Comme nts Influenza, high dose seasonal Unknown 05/21/2024 Refuse d Pneumococcal conjugate PCV 13 Unknown 05/21/2024 Refuse d Social History Social History Additional Details Category Social Info Options Details Migrated Social History Migrated Social History Smoking Status : Current every day smoker , History of tobacco use : Current every day smoker Vital Signs Height 64.00 in 05/21/2024 Weight 190 lbs 05/21/2024 BMI 32.61 kg/m2 05/21/2024 Height-cm 162.56 cm 05/21/2024 Weight-kg 86.18 kg 05/21/2024 Encounters Encounter Location Date Provider Diagnosis [facility] [address] [place], [place] [id number] 05/21/2024 COTY GROVE Other eccrine sweat disorders L74.8 ; Metatarsalgia, left foot M77.42 and 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 The patient was given after care instructions. Follow up in two weeks to debride and re-ablate as needed. 05/21/2024 Metatarsalgia, left foot (ICD-10 - M77.42) Metatarsalgia: I discussed anti-inflammatory treatment options and various means of immobilization with the patient. I educated the patient on icing and stretching, supportive shoegear, and the use of orthotic devices and bracing. 05/21/2024 Type 2 diabetes mellitus with other diabetic neurological complication (ICD-10 - E11.49) Diabetic Foot Care: The patient was educated on diabetes and the lower extremity. The patient was instructed to check his feet daily to report any problems or signs of infection immediately. The patient was provided written information on Diabetic Foot Care as well as the Amputation Prevention Guide. Plan Of Treatment Treatment Notes Assessment Notes Other eccrine sweat disorders Porokeratosis: The lesions were debrided to normal appearing skin and then chemically ablated with pyrogallic acid and covered with an occlusive dressing. The patient was given after care instructions. Follow up in two weeks to debride and re-ablate as needed. Metatarsalgia, left foot Metatarsalgia: I discussed anti-inflammatory treatment options and various means of immobilization with the patient. I educated the patient on icing and stretching, supportive shoegear, and the use of orthotic devices and bracing. Type 2 diabetes mellitus wit h other diabetic neurological complication Diabetic Foot Care: The patient was educated on diabetes and the lower extremity. The patient was instructed to check his feet daily to report any problems or signs of infection immediately. The patient was provided written information on Diabetic Foot Care as well as the Amputation Prevention Guide. Next Appt Details Follow Up: 2 Weeks, Reason: Debride and ablate porokeratosis prn. Discuss preventative treatment History and Physical Notes * HPI (History of Present Illness) Category Sub-Category Detail Notes Category Not es HPI New Complaint Patient was last seen in our practice over three years ago. Patient complains of an issue to possible plantar warts on the bottom, lateral side of both feet. Patient states she has had her right treated in the past, but the left appeared one month ago. Patient also mentions small black spots on the bottom of her feet as well. Patient states she is diabetic. HUMBERTO MENG Examination Category Sub-Category Detail Notes Category Not es Dermatologic Skin findings: Skin is warm, dr y, supple with no breaks in the skin Hypertrophic / hyperkeratotic lesion: th ere are multiple hyperkeratotic skin lesions on the plantar aspect of both heels. There is a skin lesion on the plantar aspect of the left 5th metatarsal head. Debridement to this area demonstrates a nucleated core Neurologic Pocola-Weinstin 5.07 monofilamen t absent sensorium to midfoot via 5.07g monofilament Gross sensation Gross sensation is i ntact to light touch Vascular Dorsalis pedis pulse: 2/4, bilateral Edema: No edema, bilateral Capillary refill: less than 3 seconds Posterior tibial pulse: 2/4, bilateral Musculoskeletal Muscle Strength Muscle strength is 5/5 in regards to dorsiflexion, plantarflexion, inversion, and eversion in bilateral lower extremities Pain on palpation pain on palpation to the plantar aspect of the left 5th metatarsal head Constitutional Constitutional The patient is a wake, alert, well developed, well groomed and well nourished Progress Notes * CLARA ROSAOB:1955 (69 yo F)Acc No.[id number]:05/21/2024 Progress Notes Patient: MOE ONTIVEROS Provider: Matthias Grove DPM :1955 A ge:68 Y S ex:Female Date:05/21/2024 Address:[address] [place], [place] [id number] Subjective: * Chief Complaints: * T he patient has diabetes mellitus with neuropathy. She gets tiny lumps of skin that she thinks are warts. There is one in particular on the bottom of her left foot behind the 5th toe that is especially painful * HPI: H PI: New Complaint P kari was last seen in our practice over three years ago. Patient complains of an issue to possible plantar warts on the bottom, lateral side of both feet. Patient states she has had her right treated in the past, but the left appeared one month ago. Patient also mentions small black spots on the bottom of her feet as well. Patient states she is diabetic. MA LB. * ROS: G eneral / Constitutional: Patient denies c hills, fever, weakness, night sweats. M usculoskeletal: Patient denies c hildhood foot problems, weakness. ? P eripheral Vascular: Patient denies u lceration of feet, cold extremities. ? S kin: Patient denies u lcerations, discoloration. P atient complains of c alluses and corns. N eurologic: Patient denies b alance difficulty, confusion, difficulty speaking, dizziness. P atient complains of n umbness. * Medical History: Blood transfusion Neuropathy Stroke Leg/Feet cramps Liver disease Diabetic Restless leg syndrome Medical History Verified * Surgical History: plantar fasciitis Surgical History verified. * Hospitalization/Major Diagno stic Procedure: Denies Past Hospitalization. Hospitalization Verified. * Family History: F ather: PRN - Father: . M other: PRN - Mother: :: Diabetes,,known absent . B rother: SIB - Brother: . F amily History Verified.. N on-Contributory.. * Social History: M igrated Social History: M igrated Social History: Smoking Status : Current every day smoker , History of tobacco use : Current every day smoker. Social History Verified. * Medications: T akingdiphenhydrAMINE HCl 25 MG Capsule 1 capsule at bedtime as needed Orally Once a day Cholecalciferol 25 MCG (1000 UT) Capsule 1 capsule Orally Once a day Magnesium Oxide 400 MG Tablet 1 tablet with food Orally Once a day Fluticasone Furoate 27.5 MCG/SPRAY Suspension 2 sprays (1 spray in each nostril) Nasally Once a day Acetaminophen 325 MG Tablet 1 tablet as needed Orally every 6 hrs Rosuvastatin Calcium 40 MG Tablet 1 tablet Orally Once a day ALPRAZolam 0.5 MG Tablet 1 tablet Orally Twice a day Fluoxetine Lisinopril 10 MG Tablet 1 tablet Orally Once a day Ferrous Sulfate 325 (65 Fe) MG Tablet 1 tablet Orally Three times a Week Gabapentin 100 MG Capsule 1 capsule at bedtime Orally Once a day Semaglutide (1 MG/DOSE) 4 MG/3ML Solution Pen-injector as directed Subcutaneous metFORMIN HCl 500 MG Tablet 1 tablet with a meal Orally Once a day Glucose (Dextrose) 50 % Solution as directed Intravenous Medication List reviewed and reconciled with the patientTaking diphenhydrAMINE HCl 25 MG Capsule 1 capsule at bedtime as needed Orally Once a day Taking Cholecalciferol 25 MCG (1000 UT) Capsule 1 capsule Orally Once a day Taking Magnesium Oxide 400 MG Tablet 1 tablet with food Orally Once a day Taking Fluticasone Furoate 27.5 MCG/SPRAY Suspension 2 sprays (1 spray in each nostril) Nasally Once a day Taking Acetaminophen 325 MG Tablet 1 tablet as needed Orally every 6 hrs Taking Rosuvastatin Calcium 40 MG Tablet 1 tablet Orally Once a day Taking ALPRAZolam 0.5 MG Tablet 1 tablet Orally Twice a day Taking Fluoxetine Taking Lisinopril 10 MG Tablet 1 tablet Orally Once a day Taking Ferrous Sulfate 325 (65 Fe) MG Tablet 1 tablet Orally Three times a Week Taking Gabapentin 100 MG Capsule 1 capsule at bedtime Orally Once a day Taking Semaglutide (1 MG/DOSE) 4 MG/3ML Solution Pen-injector as directed Subcutaneous Taking metFORMIN HCl 500 MG Tablet 1 tablet with a meal Orally Once a day Taking Glucose (Dextrose) 50 % Solution as directed Intravenous Medication List reviewed and reconciled with the patient * Allergies: P enicillins: Allergy - Onset Date 10/24/2013yesAllergies Verified. Objective: * Vitals: S hoe Size: 8.5, Wt:190lbs, Wt-k.18 kg, Ht: 64.00 in, Ht-cm: 162.56 cm, BMI:32.61Index, Body Surface Area: 1.97. * Examination: C onstitutional: Constitutional T he patient is awake, alert, well developed, well groomed and well nourished. D ermatologic: Skin findings: S kin is warm, dry, supple with no breaks in the skin. Hypertrophic / hyperkeratotic lesion: t here are multiple hyperkeratotic skin lesions on the plantar aspect of both heels. There is a skin lesion on the plantar aspect of the left 5th metatarsal head. Debridement to this area demonstrates a nucleated core. V ascular: Dorsalis pedis pulse: 2 /4, bilateral. Posterior tibial pulse: 2 /4, bilateral. Capillary refill: l ess than 3 seconds. Edema: N o edema, bilateral. N eurologic: Pocola-Weinstin 5.07 monofilament a bsent sensorium to midfoot via 5.07g monofilament. Gross sensation G ross sensation is intact to light touch.? M usculoskeletal: Muscle Strength M uscle strength is 5/5 in regards to dorsiflexion, plantarflexion, inversion, and eversion in bilateral lower extremities. Pain on palpation p ain on palpation to the plantar aspect of the left 5th metatarsal head. Assessment: * Assessment: 1. O ther eccrine sweat disorders - L74.8 (Primary) 2 . M etatarsalgia, left foot - M77.42 3 . T ype 2 diabetes mellitus with other diabetic neurological complication - E11.49 Plan: * Treatment: 2. M etatarsalgia, left foot Notes: Metatarsalgia: I discussed anti-inflammatory treatment options and various means of immobilization with the patient. I educated the patient on icing and stretching, supportive shoegear, and the use of orthotic devices and bracing. 3. T ype 2 diabetes mellitus with other diabetic neurological complication Notes: Diabetic Foot Care: The patient was educated on diabetes and the lower extremity. The patient was instructed to check his feet daily to report any problems or signs of infection immediately. The patient was provided written information on Diabetic Foot Care as well as the Amputation Prevention Guide. * Immunizations: Influenza, high dose seasonal (Not administered - Refused: Patient decision) Pneumococcal conjugate PCV 13 (Not administered - Refused: Patient decision) ???Immunization record has been reviewed and updated. * Preventive Medicine: Screenings: F all risk screening F all Risk Assessment: N o falls in the past year. * Follow Up: 2 Weeks (Reason: Debride and ablate porokeratosis prn. Discuss preventative treatment) Billing Information: * Visit Code: 86438 Office Visit, New Pt., Level 3. * Electronic signature of COTY GROVE DPM on 01/30/2025 at 12:17 PM CHIEF WHARFINGER Sign off status: Pending * Provider: Matthias Grove DPM Date: 0 05/21/2024 Generated for Rhonda dunbar/Saurabh/Beckitting on: 1 04/02/2024 12:17 PM CHIEF WHARFINGER
--- OUTSIDE RECORDS SUMMARY | 2024-06-04 02:40 | XMS_ITS ---
Author Organization [facility] Address [address] [place], [place] [address] Care Team Providers Care Scientific Informatics Analyst Name Role Phone COTY GROVE Unavailable [phone] Yunior Woodard Unavailable Unavailable REASON FOR VISIT *Porokeratosis check Encounters Encounter Location Date Provider Diagnosis [facility] [place] [address] [place], [place] [id number] 06/04/2024 COTY GROVE Plan Of Treatment No Information Progress Notes * SHELLEYLAURAISEDOB:1955 (69 yo F)Acc No.[id number]:06/04/2024 Patient: MOE ONTIVEROS Provider: Matthias Grove DPM :1955 A ge:68 Y S ex:Female Date:06/04/2024 Address:[address] [place], [place] [id number] Subjective: * Chief Complaints: * * Porokeratosis check Billing Information: * Procedure Codes: * Electronic signature of COTY GROVE DPM on 01/30/2025 at 12:18 PM CHICKEN CATCHER Sign off status: Pending * Provider: Matthias Grove DPM Date: 0 06/04/2024 Generated for Printi ng/Fakelsyg/eTransmitting on: 1 04/02/2024 12:18 PM CHICKEN CATCHER
[2025-01-30 11:19] LABS: Hematocrit 37.0 % (37.0-47.0); Hemoglobin 12.2 g/dL (12.0-15.0); Immature Platelet Fraction Pct 3.9 % (0.9-11.2); Mean Corpuscular HGB Conc 33.0 g/dl (32-36); Mean Corpuscular Hemoglobin 30.0 pg (26-34); Mean Corpuscular Volume 91.1 fl (80-100); Platelet Count Result 113 k/mm3 (150-375); Red Blood Count 4.06 M/mm3 (4.2-5.4); White Blood Count 5.3 K/mm3 (4.5-10.0)
--- OUTSIDE RECORDS SUMMARY | 2025-01-30 12:18 | XMS_ITS | Patient Health Record ---
Author Organization [facility] Address [address] [place], [place] [id number] Care Team Providers Care Fur Drummer Name Role Phone COTY GROVE Unavailable [phone] Yunior Woodard Unavailable Unavailable Allergies Allergen (clinical drug ingredient) Drug/Non Drug Allergy documented on EMR Reaction Allergy Type Onset Date Status Substance with penicillin structure and antibacterial mechanism of action (substance) Penicillins Unknown Drug Allergy 10/24/2013 active Reason For Referral No Information Medications Medication SIG (Take, Route, Frequency, Duration) Notes Start Date End Date Status Rosuvastatin Calcium 40 MG Tablet 1 tablet Orally Once a day Active Fluoxetine Active ALPRAZolam 0.5 MG Tablet 1 tablet Orally Twice a day Active Ferrous Sulfate 325 (65 Fe) MG Tablet 1 tablet Orally Three times a Week Active Lisinopril 10 MG Tablet 1 tablet Orally Once a day Active diphenhydrAMINE HCl 25 MG Capsule 1 capsule at bedtime as needed Orally Once a day Active Semaglutide (1 MG/DOSE) 4 MG/3ML Solution Pen-injector as directed Subcutaneous Active Gabapentin 100 MG Capsule 1 capsule at b edtime Orally Once a day Active Magnesium Oxide 400 MG Tablet 1 tablet with food Orally Once a day Active Glucose (Dextrose) 50 % Solution as directed Intravenous Acti ve Cholecalciferol 25 MCG (1000 UT) Capsule 1 capsule Orally Once a day Active metFORMIN HCl 500 MG Tablet 1 tablet wit h a meal Orally Once a day Active Acetaminophen 325 MG Tablet 1 tablet as needed Orally every 6 hrs Active Fluticasone Furoate 27.5 MCG/SPRAY Suspension 2 sprays (1 spray in each nostril) Nasally Once a day Active Immunizations Vaccine Route Administration Date Status Comme nts Pneumococcal conjugate PCV 13 Unknown 05/21/2024 Refuse d Influenza, high dose seasonal Unknown 05/21/2024 Refuse d Social History Social History Additional Details Category Social Info Options Details Migrated Social History Migrated Social History Smoking Status : Current every day smoker , History of tobacco use : Current every day smoker Vital Signs Height-cm 162.56 cm 05/21/2024 Weight-kg 86.18 kg 05/21/2024 Height 64.00 in 05/21/2024 Weight 190 lbs 05/21/2024 BMI 32.61 kg/m2 05/21/2024 Encounters Encounter Location Date Provider Diagnosis [facility] [address] [place] [id number] 05/21/2024 COTY GROVE Other eccrine sweat disorders [...] Insured Coverage Start Date Coverage End Date [facility] [address] [address] [place], [place] [id number] WALKER, [place]E Self - patient is the insured Medical (General) History Medical History History ICD Code Blood transfusion neuropathy stroke Leg/Feet cramps Liver disease Diabetic restless leg syndrome Surgical History Surgery Date(Month/Year) plantar fasciitis
--- OUTSIDE RECORDS SUMMARY | 2025-01-30 12:18 | XMS_ITS | Clinical Summary ---
Author Organization [facility] Address [address] [place] [address] Care Team Providers Care Packager And Strapper Name Role Phone Yunior Woodard MD Primary Care Provider [phone] Allergies Active Allergy Reactions Criticality Noted Date [...] (09/02/2020): Added automatically from request for surgery [id number] Carotid stenosis 08/08/2020 Assessment & Plan (08/08/2020 [...] History Medical History Date Comments Depression Diabetes History of TIA (transient ischemic attack) Hyperlipidemia [...] on file Legal Sex Female 6:50 PM CRISIS WORKER Gender Identity Not on file Sexual Orientation Not on file Last Filed Vital Signs Vital Sign Reading Time Taken Comments Blood Pressure 179/102 03/19/2021 8:23 AM CRISIS WORKER Pulse 84 03/19/2021 8:23 AM CRISIS WORKER Temperature 36.4 C (97.5 F) 10/07/2020 9:07 AM CDT Respiratory Rate 18 10/07/2020 9:27 AM CDT Oxygen Saturation 100% 10/07/2020 9:27 AM CDT Inhaled Oxygen Concentration - - Weight 86.2 kg (190 lb) 03/19/2021 8:23 AM CRISIS WORKER Height 160 cm (5' 3) 03/19/2021 8:23 AM CRISIS WORKER Body Mass Index 33.66 03/19/2021 8:23 AM CRISIS WORKER Plan of Treatment Not on file Insurance [facility] MEDICARE ADVANTAGE [facility] Address: [facility] [address] [place] [address] [facility] MEDICARE ADVANT[facility] Address: [address] [place] [phone] [facility] MEDICARE ADVANTAGE [facility] MEDICARE Address: [id number] [place] [address] Advance Directives For more information, please contact: [phone] * Full Code (Latest Code Status on File) Date Activated Date Inactivated Comments 10/07/2020 7:18 AM 10/07/2020 1:41 PM Care Teams Packager And Strapper Relationship Specialty Start Date End Date Yunior Woodard MD PCP - General Family Medicine 07/24/20
--- OUTSIDE RECORDS SUMMARY | 2025-01-30 12:18 | XMS_ITS | Encounter Summary ---
Author Organization [facility] Address [address] [place] [address] Care Team Providers Care Wire Insulator Name Role Phone Yunior Woodard MD Primary Care Provider [phone] Encounter Details Date Type Department Care Team (Late st Contact Info) Description 01/29/2025 External Device Data [facility] ABSTRACTION Provider, Abstract NO ADDRESS ON FILE Social History Tobacco Use Types Packs/Day Years Used Date Smoking Tobacco: Every Day Cigarettes 1 56.3 Started: [birth year]/25/1968 Smokeless Tobacco: Never Alcohol Use Standard Drinks/Week Comments Yes 0 (1 standard drink = 0.6 oz pur e alcohol) 2 beers a month Food Insecurity Answer Date Recorded Do you find you are eating l ess than you should because you can t pay for food? No 12/04/2024 Transportation Needs Answer Date Record ed Have you gone without health care because you didn t have a way to get there? Or worry about transportation for future doctor visits, excelsior picker medication, etc.? No 2024 Housing Stability Answer Date Recorded Do you worry you won t have a steady place to sleep or struggle to pay rent or mortgage? No 12/04/2024 Utility Needs Answer Date Recorded Do you have difficulty payin g for utility costs (electric, water or gas bills)? No 12/04/2024 Medication Needs Answer Date Recorded Have you skipped taking medi cation due to cost or worry you can t afford new medications? No 12/04/2024 Feeling Safe Answer Date Recorded Are you in a relationship wi th someone who hurts you emotionally and/or physically? No 12/04/2024 Food Insecurity Answer Date Recorded Patient needs follow up regardin 10/31/2024 Transportation Needs Answer Date Record ed Patient needs follow up regardin 10/31/2024 Utility Needs Answer Date Recorded Patient needs follow up regardin 10/31/2024 Comments No Sex and Gender Information Value Date Recorded Sex Assigned at Not on file Legal Sex Female 2:17 PM PARACHUTIST/COMBATANT DIVER QUALIFIED Gender Identity Not on file Sexual Orientation Not on file documented as of this encounter Plan of Treatment Upcoming Encounters Date Type Department Care Team (Late st Contact Info) Description 02/05/2025 9:45 AM PARACHUTIST/COMBATANT DIVER QUALIFIED Office Visit [facility] Oncology and Hematology - [place] [address] [facility] [address] [place] [address] Ford Langley MD [address] [facility] [address] [place] [address] documented as of this encounter Visit Diagnoses Not on filedocumented in this encounter Care Teams Wire Insulator Relationship Specialty Start Date End Date Yunior Woodard MD [address] [place] [address] PCP - General Family Practice 03/15/22 documented as of this encounter
--- OUTSIDE RECORDS SUMMARY | 2025-01-30 12:18 | XMS_ITS | Clinical Summary ---
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 Active dulaglutide (TRULICITY) 0.75 mg/0.5 mL injection Inject by subcutaneous injection. Active FLUoxetine (PROzac) 40 mg capsule Take 40 mg by mouth daily. Active insulin glargine (Lantus Solostar U-100 Insulin) 100 unit/mL pen syringe Inject 20 Units by subcutaneous injection. Active insulin lispro [...] Take 5 mg by mouth daily. Active aspirin (ECOTRIN EC) 81 mg Tablet, Delayed Release (E.C.) Take 81 mg by mouth daily. Active ferrous sulfate 325 mg (65 mg iron) tablet Take 325 mg by mouth daily. Takes 3 days a week 03/28/202 5 Active rosuvastatin (CRESTOR) 20 mg tablet Take 40 mg by mouth daily. Active magnesium OXIDE 500 mg Capsule Take 500 mg by mouth daily. Active zinc GLUCONATE 50 mg Tablet Take 50 mg by mouth daily. Active methocarbamoL (ROBAXIN) 500 mg tablet Take 1 Tablet (500 mg) by mouth every 8 hours as needed for Spasm. 30 Tablet 12/05/2024 6:43 PM CDT Active HYDROcodone-stiven taminophen (NORCO) 5-325 mg tabletIndicatio ns:Lung mass Take 1 Tablet by mouth every 4 hours as needed for Pain. Max Daily Amount: 6 Tablets 20 Tablet Active Active Problems Problem Noted Date Diagnosed Date Lung mass 10/31/2024 Abnormal kidney function 10/31/2024 Acute appendicitis 10/31/2024 Anxiety disorder, unspecified 10/31/2024 History of cholecystectomy 10/31/2024 GI bleed 10/31/2024 Hx-TIA (transient ischemic attack) 10/31/2024 Nicotine dependence, unspecified, uncomplicated 10/31/2024 Stage 3 chronic kidney disease 10/31/2024 Tobacco abuse 10/31/2024 Type 2 diabetes mellitus with hyperglycemia 04/2024 Hyperlipidemia 03/19/2021 Carotid stenosis 08/08/2020 Essential hypertension 08/06/2020 Osteoarthrosis 01/04/2012 Encounters Date Type Department Care Team Description 01/29/2025 External Device Data STL ABSTRACTION Provider, Abstract 01/15/2025 External Device Data ST[facility] ABSTRACTION Provider, Abstract 01/15/2025 Orders Only [facility] Oncology and Hematology - [place] [address] [place] [phone] Ford Langley MD 01/08/2025 External Device Data STL ABSTRACTION Provider, Abstract 01/02/2025 10:00 AM 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 TECHNICIAN Video Visit [facility] Cardiovas and Thor Surg at [facility] [address] [place] [address] Mirza Morse MD Postoperative examination (Primary Dx) 12/20/2024 Refill [facility] Cardiovas and Thor Surg at [facility] [address] [facility] [address] [place] [phone] Mary Carcamo PA-C Lung mass 12/14/2024 Abstract [facility] Cardiovas and Thor Surg at [facility] [address] [facility] [address] [place] [address] Mirza Morse MD 12/04/2024 External Device Data STL ABSTRACTION Provider, Abstract 12/04/2024 Travel 12/04/2024 External Device Data STL ABSTRACTION Provider, Abstract 12/03/2024 6:30 AM CDT - 12/03/2024 11:56 AM CDT Surgery [facility] CV Operating Room [address] [place] [address] Mirza Morse MD LEFT UPPER LUNG LOBECTOMY ROBOTIC XI THORACOSCOPIC 12/03/2024 6:21 AM CDT Anesthesia Event [facility] CV Operating Room [address] [place] [address] Shaun Phipps MD 12/03/2024 4:55 AM CDT - 12/05/2024 6:41 PM CDT Hospital Encounter [facility] Surgical Progressive Care [address] [place] [address] Mirza Morse MD Lung mass Discharge Disposition: Home or Self Care 12/03/2024 4:50 AM CDT - 12/03/2024 11:59 PM CDT Hospital Encounter [facility] Laboratory Services [address] [facility] [place] [address] Mirza Morse MD Discharge Disposition: Home or Self Care 12/03/2024 Orders Only [facility] Cardiovas and Thor Surg at [facility] [address] [address] [place] [address] Mirza Morse MD Lung mass (Primary Dx) 11/28/2024 9:00 AM CDT Video Visit [facility] Cardiovas and Thor Surg at [address] [address] Mirza Morse MD Lung mass (Primary Dx) 11/13/2024 2:02 PM CDT - 11/13/2024 11:59 PM CDT Hospital Encounter [facility] Laboratory Services [address] [address] Mirza Morse MD Discharge Disposition: Home or Self Care 11/09/2024 Telephone [facility] Cardiovas and Thor Surg at [address] [address] Mirza Morse MD Information (Pathology slide request) 11/06/2024 External Device Data STL ABSTRACTION Provider, Abstract 11/06/2024 External Device Data STL ABSTRACTION Provider, Abstract 11/06/2024 External Device Data STL ABSTRACTION Provider, Abstract 11/02/2024 Telephone [facility] Cardiovas and Thor Surg at [address] [address] Mirza Morse MD Information 10/31/2024 12:02 PM CDT - 10/31/2024 11:59 PM CDT Hospital Encounter [place] [address] [place] [address] Dacia Kiran PA Discharge Disposition: Home or Self Care 10/31/2024 11:15 AM CDT - 10/31/2024 11:59 PM CDT Hospital Encounter [address] [address] Mirza Morse MD Discharge Disposition: Home or Self Care 10/31/2024 10:15 AM CDT Office Visit [facility] Cardiovas and Thor Surg at [address] [address] Mirza Morse MD Lung mass (Primary Dx); Other cerebrovascular disease 10/31/2024 9:51 AM CDT - 10/31/2024 11:59 PM CDT Hospital Encounter [facility] CT Scan S [facility] [address] [place] [address] Mirza Morse MD Discharge Disposition: Home or Self Care 10/31/2024 9:51 AM CDT - 10/31/2024 11:59 PM CDT Hospital Encounter [facility] CT Scan S [facility] [address] [place] [address] Mirza Morse MD Discharge Disposition: Home or Self Care 10/31/2024 9:51 AM CDT - 10/31/2024 11:59 PM CDT Hospital Encounter [facility] Nuclear Medicine S [facility] [address] [place] [address] Mirza Morse MD Discharge Disposition: Home or Self Care 10/31/2024 Orders Only [facility] Cardiovas and Thor Surg at [address] [place] [address] Mirza Morse MD 10/31/2024 Prep for Surgery [facility] Cardiovas and Thor Surg at [place] [address] [address] [place] [address] Dacia Kiran PA Lung mass (Primary Dx) from Last 3 Months Family History Medical History Relation Name Comments No Known Problems Brother No Known Problems Father No Known Problems Mother Relation Name Status Comments Brother Alive Father Alive Mother Social History Tobacco Use Types Packs/Day Years Used Date Smoking Tobacco: Every Day Cigarettes 1 56.3 Started: 10/25/1968 Smokeless Tobacco: Never Tobacco Cessation:Ready to Q uit: No; Counseling Given: Not Answered Alcohol Use Standard [...] worry about transportation for future doctor visits, fruit or nut picker medication, etc.? No 2024 Housing Stability [...] on file Legal Sex Female 2:17 PM 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 TECHNICIAN Gender Identity Not on file Sexual Orientation Not on file Last Filed Vital Signs Vital Sign Reading Time Taken Comments Blood Pressure 158/66 12/05/2024 3:47 PM CDT Pulse 91 12/05/2024 3:47 PM CDT Temperature 36.9 C (98.4 F) 12/05/2024 3:47 PM CDT Respiratory Rate 19 12/05/2024 3:47 PM CDT Oxygen Saturation 97% 12/05/2024 3:47 PM CDT Inhaled Oxygen Concentration - - Weight 72.6 kg (160 lb) 01/02/2025 9:58 AM 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 TECHNICIAN Height 162.6 cm (5' 4) 01/02/2025 9:58 AM 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 TECHNICIAN Body Mass Index 27.46 01/02/2025 9:58 AM 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 TECHNICIAN Plan of Treatment Upcoming Encounters Date Type Department Care Team (Late st Contact Info) Description 02/05/2025 9:45 AM 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 TECHNICIAN Office Visit [facility] Oncology and Hematology - [place] [address] [place] [phone] Ford Langley MD [address] [facility] [address] [place] [address] Health Maintenance Due Date Last Done Comments DIABETES ANNUAL FOOT EXAM 08/08/1973 DIABETES ANNUAL RETINAL EXAM 08/08/1973 DIABETES MICROALBUMIN ANNUAL SCREEN 08/08/1973 LDL CHOLESTEROL ANNUAL 08/08/1973 DTAP/TDAP/TD VACCINES (1 - Tdap) 08/08/1974 PNEUMOCOCCAL VACCINE 50+ YEA RS (1 of 2 - PCV) 08/08/1974 BREAST CANCER SCREENING 1995 FIT-DNA Q 3 years 08/08/2000 FIT/FOBT Q 1 year 08/08/2000 Flex Sig/CT Colonography Q 5 years 08/08/2000 RSV VACCINE (60+ or ) (1 - Risk 50-74 years 1-dose series) 08/08/2005 ZOSTER VACCINE (1 of 2) 08/08/2005 OSTEOPOROSIS SCREENING 08/08/2020 Medicare Advantage ([place]) Prev entative Visit/Annual Wellness Visit 02/29/2024 INFLUENZA VACCINE (#1) 2024 DIABETES HBA1C Q 6 MONTHS 04/30/2025 10/31/2024 COLORECTAL SCREENING 10/07/2030 10/07/2020, 10/08/19 21 Colorectal Cancer Screening 10/07/2030 Medical Devices Implanted Type Area Medical Assistant Internal Medicine Device Identifier Shelf Expiration Date Model / Serial / Lot Sealant Progel Pleural 4ml [id number] - [id number] Implanted:Qty: 1 on 12/03/2024 by Mirza Morse MD at [facility] Sealant Left: Chest BARD DAVOL 05/25/2026 [id number] / / Explanted Type Area Medical Assistant Internal Medicine Device Identifier Shelf Expiration Date Model / Serial / Lot Agent Hemostat Surgicel 4x8in - [id number] Explanted:Qt y: 1 on 12/03/2024 by Mirza Morse MD at [facility] Hemostatic Left: Chest [employer] [id number] 11/27/2028 [id number] / / [id number] Procedures Procedure Name Priority Date/Time Associated Diagnosis Comments TELEMETRY REPORT 12/06/2024 4:49 PM CDT XR CHEST PA OR AP 1 VW Pending Discharge 12/05/2024 5:49 PM CDT XR CHEST PA OR AP 1 VW Pending Discharge 12/05/2024 3:10 PM CDT POC GLUCOSE Routine 12/05/2024 1:40 PM CDT XR CHEST PA OR AP 1 VW Routine 12/05/2024 12:44 PM CDT XR CHEST PA OR AP 1 VW Routine 12/05/2024 11:05 AM CDT POC GLUCOSE Routine 12/05/2024 9:14 AM CDT CBC WITH DIFFERENTIAL Routine 12/05/2024 2:10 AM CDT BASIC METABOLIC PANEL Routine 12/05/2024 2:10 AM CDT POC GLUCOSE Routine 12/04/2024 8:54 PM CDT POC GLUCOSE Routine 12/04/2024 5:47 PM CDT POC GLUCOSE Routine 12/04/2024 1:28 PM CDT XR CHEST PA OR AP 1 VW Routine 12/04/2024 12:23 PM CDT BASIC METABOLIC PANEL Routine 12/04/2024 2:16 AM CDT CBC WITH DIFFERENTIAL Routine 12/04/2024 2:16 AM CDT POC GLUCOSE Routine 12/03/2024 2:14 PM CDT XR CHEST PA OR AP 1 VW Stat 12/03/2024 1:52 PM CDT PT EVAL AND TREAT Routine 12/03/2024 1:4 1 PM CDT OT EVAL AND TREAT Routine 12/03/2024 1:4 1 PM CDT PATHOLOGY Pathology 12/03/2024 8:36 AM CDT Adenocarcinoma of upper lobe of left lung (CMS/HCC) DE ANES INSERT CATH, ART, PERCUT, SHORTTERM Routine 12/03/2024 7:48 AM CDT DE ANES INSERT ENDOTRACHEAL AIRWAY Routine 12/03/2024 7:30 AM CDT LUNG LOBECTOMY ROBOTIC XI THORACOSCOPIC 12/03/2024 6:30 AM CDT Adenocarcinoma of upper lobe of left lung (CMS/HCC) LYMPH NODE DISSECTION ROBOTIC XI 12/03/2024 6:30 AM CDT Adenocarcinoma of upper lobe of left lung (CMS/HCC) TYPE AND SCREEN Stat 12/03/2024 5:11 AM CDT PATHOLOGY Pathology 11/13/2024 2:07 PM CDT Encounter for consultation XR CHEST PA AND LATERAL 2 VW Routine 10/31/2024 12:40 PM CDT Lung mass EKG 12-LEAD Routine 10/31/2024 12:09 PM CDT Lung mass TYPE AND SCREEN Routine 10/31/2024 11:59 AM CDT Lung mass PTT Routine 10/31/2024 11:59 AM CDT Lung mass PROTIME-INR Routine 10/31/2024 11:59 AM CDT Lung mass COMPREHENSIVE METABOLIC PANEL Routine 10/31/2024 11:59 AM CDT Lung mass CBC WITH DIFFERENTIAL Routine 10/31/2024 11:59 AM CDT Lung mass HEMOGLOBIN A1C Routine 10/31/2024 11:[address] PRIOR STUDY Routine 10/31/2024 9:51 AM CDT Primary malignant neoplasm of bronchus of left upper lobe (CMS/HCC) CT PRIOR STUDY Routine 10/31/2024 9:51 AM CDT Primary malignant neoplasm of bronchus of left upper lobe (CMS/HCC) PET PRIOR STUDY Routine 10/31/2024 9:51 AM CDT Primary malignant neoplasm of bronchus of left upper lobe (CMS/HCC) from Last 3 Months Results * TELEMETRY REPORT (12/06/2024 4:49 PM CDT) us Provider Scanning ECG ORDERABLES Final Result * XR CHEST PA OR AP 1 VW (12/05/2024 5:49 PM CDT) Only the most recent of6 resultswithin the time period is included. Anatomical Region Laterality Modality Chest Computed Radiogr aphy 12/05/2024 5:49 PM CDT Impressions 12/05/2024 6:46 PM CDT IMPRESSION: Interval removal of left chest tube. No pneumothorax. DICTATION LOCATION: Location 4 Narrative 12/05/2024 6:46 PM CDT XR CHEST PA OR AP 1 VW INDICATION: Tube Placement, Comment: Chest tube removal s/p lobectomy evaluate for post pull PTX. COMPARISON STUDY: Same day radiographs. TECHNIQUE: Frontal projection of the chest was obtained. FINDINGS: Interval removal of left chest tube. Lungs: The lung volume is normal. Similar left basilar opacities.. Normal pulmonary vasculature. Pleura: No pleural effusion or pneumothorax. Heart and Mediastinum: The cardiomediastinal silhouette and great vessels are normal. Skeletal Structures and Soft Tissues: The visualized skeletal structures are within normal limits. Procedure Note Daniel Dawson MD - 12/05/2024 XR CHEST PA OR AP 1 VW INDICATION: Tube Placement, Comment: Chest tube removal s/p lobectomy evaluate for post pull PTX. COMPARISON STUDY: Same day radiographs. TECHNIQUE: Frontal projection of the chest was obtained. FINDINGS: Interval removal of left chest tube. Lungs: The lung volume is normal. Similar left basilar opacities.. Normal pulmonary vasculature. Pleura: No pleural effusion or pneumothorax. Heart and Mediastinum: The cardiomediastinal silhouette and great vessels are normal. Skeletal Structures and Soft Tissues: The visualized skeletal structures are within normal limits. IMPRESSION: Interval removal of left chest tube. No pneumothorax. DICTATION LOCATION: Location 4 Mary Carcamo PA-C DIAGNOSTIC IMAGING [facility] Final Result * (ABNORMAL) POC GLUCOSE (12/05/2024 1:40 PM CDT) Only the most recent of6 resultswithin the time period is included. GLUCOSE POC 147(H) 74 - 99 mg/dL 12/05/2024 1:40 PM CDT [facility] SPECIMEN SOURCE, GLUCOSE POC Whole Blood 12/05/2024 1:40 PM CDT [facility] Blood, whole 12/05/2024 1:40 PM CDT 12/05/2024 1:47 PM CDT Mirza Morse MD POINT OF CARE TESTING Final Re sult [facility] [employer] [facility]# [id number] [address] [place] [id number] * (ABNORMAL) CBC WITH DIFFERENTIAL (12/05/2024 2:10 AM CDT) Only the most recent of3 resultswithin the time period is included. Pathologist [facility] WBC 4.9 4.0 - 9.8 K/uL 12/05/2024 3:36 AM CDT [facility] RBC 3.61(L) 3.90 - 4.90 M/uL 12/05/2024 3:36 AM CDT [facility] HEMOGLOBIN 10.8(L) 11.8 - 14.8 g/dL 12/05/2024 3:36 AM CDT [facility] HEMATOCRIT 32.4(L) 35.5 - 44.0 % 12/05/2024 3:36 AM CDT [facility] MCV 89.8 82.0 - 99.0 fL 12/05/2024 3:36 AM CDT [facility] MCH 29.9 27.2 - 32.6 pg 12/05/2024 3:36 AM CDT [facility] MCHC 33.3 31.5 - 35.5 g/dL 12/05/2024 3:36 AM CDT [facility] RDW 12.8 11.5 - 14.5 % 12/05/2024 3:36 AM CDT [facility] RDW-STDEV 42.1 37.1 - 48.7 fL 12/05/2024 3:36 AM CDT [facility] PLATELETS 87(L) 140 - 350 K/uL 12/05/2024 3:36 AM CDT [facility] Comment:Persistent abnormal result. MPV 10.9 9.3 - 12.4 fL 12/05/2024 3:36 AM CDT [facility] NEUTROPHILS 72 % 12/05/2024 3:36 AM CDT [facility] LYMPHOCYTES 17 % 12/05/2024 3:36 AM CDT [facility] MONOCYTES 7 % 12/05/2024 3:36 AM CDT [facility] EOSINOPHILS 3 % 12/05/2024 3:36 AM CDT [facility] BASOPHILS 1 % 12/05/2024 3:36 AM CDT [facility] IMMATURE GRANULOCYTES 0 % 12/05/2024 3:36 AM CDT [facility] NEUTROPHIL ABSOLUTE 3.49 1.90 - 7.00 K/uL 12/05/2024 3:36 AM CDT [facility] LYMPHOCYTE ABSOLUTE 0.84 0.70 - 4.50 K/uL 12/05/2024 3:36 AM CDT [facility] . [facility] MONOCYTE ABSOLUTE 0.32 0.10 - 1.30 K/uL 12/05/2024 3:36 AM CDT [facility] . [facility] EOSINOPHIL ABSOLUTE 0.16 0.00 - 0.70 K/uL 12/05/2024 3:36 AM CDT [facility] BASOPHILS ABSOLUTE 0.03 0.00 - 0.20 K/uL 12/05/2024 3:36 AM CDT [facility] IMMATURE GRANULOCYTES ABSOLUTE 0.01 0.00 - 0.03 K/uL 12/05/2024 3:36 AM CDT [facility] Blood Venipuncture / Unknown 12/05/2024 2:10 AM CDT 12/05/2024 3:05 AM CDT Mary Carcamo PA-C HEMATOLOGY ORDERABLES F inal Result [facility] CLIA# [id number] [address] [place] [id number] * (ABNORMAL) BASIC METABOLIC PANEL (12/05/2024 2:10 AM CDT) Only the most recent of2 resultswithin the time period is included. SODIUM 136 136 - 145 mmol/L 12/05/2024 3:44 AM T [facility] POTASSIUM 4.5 3.5 - 5.0 mmol/L 12/05/2024 3:44 AM T [facility] CHLORIDE 104 98 - 107 mmol/L 12/05/2024 3:44 AM T [facility] CO2 23 22 - 29 mmol/L 12/05/2024 3:44 AM T [facility] CALCIUM 8.6 8.6 - 10.2 mg/dL 12/05/2024 3:44 AM T [facility] BUN 15 8 - 23 mg/dL 12/05/2024 3:44 AM T [facility] CREATININE 0.90 0.51 - 0.95 mg/dL 12/05/2024 3:44 AM T [facility] GLUCOSE 159(H) 74 - 99 mg/dL 12/05/2024 3:44 AM T [facility] GFR >60 >=60 mL/min/1.7 3 sq meter 12/05/2024 3:44 AM CDT [facility] Comment:eGFR calculated with 2020 CKD-EPI equation. Vegetarian diet, extremely high or low muscle mass, and may affect results. Cystatin C with Glomerular Filtration Rate is a suitable alternative for these patients. ANION GAP 9 8 - 16 mmol/L 12/05/2024 3:44 AM CDT [facility] Blood Venipuncture / Unknown 12/05/2024 2:10 AM CDT 12/05/2024 3:05 AM CDT us Mary Carcamo PA-C CHEMISTRY ORDERABLES Fi nal Result [facility] CLIA# [id number] [address] [facility] [place] [address] * PATHOLOGY (12/03/2024 8:36 AM CDT) Only the most recent of2 resultswithin the time period is included. CASE REPORT Surgical Pathology Report Case: [id number] Authorizing Provider: Mirza Morse MD Collected: 12/03/2024 08:36 AM Ordering Location: [facility] Received: 12/04/2024 07:52 AM [facility] Operating Room Pathologist: Howie Eaton MD Specimens: A) - Lymph nodes, left, LEFT LEVEL 9 LYMPH NODE B) - Lymph nodes, left, LEFT LEVEL 5 LYMPH NODE C) - Lymph nodes, left, Level 11 Lymph Node D) - Lung, FADI, Left Upper Lobe 12:26 PM CDT [facility] FINAL DIAGNOSIS A. Lymph node, left level 9 lymph node, biopsy: - One (1) lymph node, negative for tumor (0/1). B. Lymph node, left level 5 lymph node, biopsy: - One (1) lymph node, negative for tumor (0/1). C. Lymph node, left level 11 lymph node, biopsy: - Three (3) lymph nodes, negative for tumor (0/3). D. Lung, left upper lobe, lobectomy: - Invasive adenocarcinoma, predominantly cribriform and fused glandular pattern (70%) with a solid component (30%). - Poorly differentiated (1.8 cm. in greatest dimension). - Tumor invades visceral pleura (elastic stain examined). - Bronchial margin of excision is negative for tumor. - The tumor is 5.5 cm from the nearest bronchial resection margin. - Stapled resection margins are negative for tumor. - The tumor is 9.5 cm from the nearest stapled resection margin. - Vascular margins are negative for tumor. - The tumor is 4.5 cm from the nearest vascular resection margin. - Lymphovascular invasion in lung is not identified. - Adjacent lung parenchyma with smoking related changes. - Two (2) hilar lymph nodes with no tumor present (0/2). AJCC Classification (8th edition): pT2a, N0, Mx. 12:26 PM T [facility] at 1226 CDT DIAGNOSIS COMMENT The morphology and immunoprofile (CK7+, weak focal CDX2+, TTF-1-, Napsin A-) are nonspecific but, in the absence of any extrathoracic primary lesion and with supportive PET-CT findings, are most compatible with a primary lung adenocarcinoma. While CDX2 positivity raises the possibility of gastrointestinal differentiation, the weak focal nature and lack of CK20 expression argue against a colorectal origin. Molecular testing (e.g. EGFR, ALK and ROS1) will be performed upon request. 12:26 PM [facility] GROSS DESCRIPTION The specimens are received in four containers labeled Trish Patel. Received in the first container, additionally labeled left level 9 lymph node is a 0.8 x 0.8 x 0.2 cm piece of yellow-orange, lobulated adipose tissue that is dissected to reveal no palpable lymph nodes. The entire specimen is submitted in cassette A1. Received in the second container additionally labeled left level 5 lymph node is a 0.4 x 0.4 x 0.3 cm pink-talley possible lymph node with a small amount of attached yellow-orange adipose tissue. The lymph node is submitted whole in cassette B1. Received in the third container additionally labeled left level 11 lymph node are 3 pieces of red-talley focally cauterized tissue that are 0.7, 0.8, and 1.1 cm in greatest dimension. The pieces of tissue are submitted whole in cassette C1. Received in the fourth container additionally labeled left upper lobe lung is a 155 g, 20 x 8.5 x 3.8 cm lobe of lung. The pleural surface is red-talley and smooth. The superior aspect of the lobe has a puckered indurated area on the pleura that is 1.8 x 1.4 cm. The puckered area is inked blue. The hilum is sealed with john. The inferior border of the hilum has a 3.5 cm long staple line that is inked yellow. The bronchus and vascular resection margins are unremarkable. There is a single red-talley possible hilar lymph node identified that is 0.8 cm in greatest dimension. The lung is inflated with formalin. The tissue is serially sectioned from anterior to posterior to reveal red, spongy lung parenchyma there is a white, well-circumscribed, unencapsulated, indurated mass, beneath the blue puckered area on the superior part of the lobe, that is 1.8 x 1.5 x 1.3 cm. The lesion approaches within less than 0.1 cm of the blue inked puckered pleural surface, 5.5 cm from the bronchus resection margins, 4.5 cm from the nearest vascular resection margin, and 9.5 cm from the yellow inked staple line resection margin. The mass has slightly irregular borders and has a white to talley smooth cut surface. No other palpable masses are identified within the tissue. There is an additional lymph node identified in the superior hilum that is 0.3 cm in greatest dimension. Immigration Services Officer sections are submitted as follows: D1-en face bronchus resection margin; D2-en face vascular resection margin; D3-2 hilar lymph nodes; D4-perpendicular section through yellow inked staple line resection margin closest to lesion; J7-R8-szriqc mass with blue inked pleural surface; D9-normal parenchyma from the superior part of the lobe; M53-vmhbee parenchyma from the inferior part of the lobe. [facility] 5 12:26 PM [facility] [employer] [facility] MICROSCOPIC DESCRIPTION The slides are labeled [id number] and Trish Patel. Sections of the left upper lobe show a poorly differentiated invasive adenocarcinoma. The tumour is composed predominantly of cribriform and fused glandular structures (approximately 70%) admixed with solid nests (approximately 30%). Tumour cells display marked nuclear pleomorphism, prominent nucleoli, and frequent mitotic figures. The carcinoma infiltrates into the visceral pleura, confirmed by elastic tissue stain. Lymphovascular invasion is not identified. All resection margins (bronchial, vascular, and stapled parenchymal) are negative for tumour. The adjacent lung parenchyma exhibits emphysematous changes and pigment-laden macrophages, in keeping with smoking-related injury. All sampled lymph nodes (hilar, levels 5, 9, and 11) are negative for metastatic carcinoma. Immunohistochemistry (block D7): Positive: CK7, CDX2 (weak, focal); Negative: TTF-1, Napsin A, CK5/6, p40, CK20, PAX8. The morphologic and immunophenotypic features are compatible with a poorly differentiated adenocarcinoma, most consistent with a primary lung origin, in the context of radiologic findings showing a solitary left apical mass with SUV 10.2 and no evidence of extrathoracic disease on PET scan. 5 12:26 PM [facility] [employer] [facility] OPERATIVE PROCEDURE 1: LYMPH NODE DISSECTION ROBOTIC XI 2: LUNG LOBECTOMY ROBOTIC XI THORACOSCOPIC 5 12:26 PM [facility] CLINICAL INFORMATION C34.12 C34.12-Adenocarcinoma of upper lobe of left lung 12:26 PM [facility] SYNOPTIC REPORT LUNG LUNG - All Specimens AJCC 9 - Protocol posted: 02/08/2024 SPECIMEN Procedure: Lobectomy Specimen Laterality: Left TUMOR Tumor Focality: Single focus Tumor Site: Upper lobe of lung Tumor Size: Invasive Tumor Size: Greatest Dimension (Centimeters): 1.8 cm Additional Dimension (Centimeters): 1.5 cm Additional Dimension (Centimeters): 1.3 cm Histologic Type: Invasive solid adenocarcinoma Histologic Patterns: Solid: 30 Histologic Patterns: Complex glands (cribriform and fused glands): 70 Histologic Grade: G3, poorly differentiated Spread Through Air Spaces (JH): Not identified Visceral Pleura Invasion: Present Direct Invasion of Other Structures: Not applicable (no other structures present) Treatment Effect: No known presurgical therapy Lymphatic and / or Vascular Invasion: Not identified MARGINS Margin Status for Invasive Tumor: All margins negative for invasive tumor Closest Margin(s) to Invasive Tumor: Vascular Distance from Invasive Tumor to Closest Margin: 4.5 cm Margin Status for Non-Invasive Tumor: All margins negative for non-invasive tumor REGIONAL LYMPH NODES Lymph Node(s) from Prior Procedures: No known prior lymph node sampling performed Regional Lymph Node Status: : All regional lymph nodes negative for tumor Number of Lymph Nodes Examined: 7 Riley Site(s) Examined: 5: Subaortic / aortopulmonary (AP) / AP window Riley Site(s) Examined: 9L: Pulmonary ligament Riley Site(s) Examined: 10L: Hilar Riley Site(s) Examined: 11L: Interlobar pTNM CLASSIFICATION (AJCC Version 9) Reporting of pT, pN, and (when applicable) pM categories is based on information available to the pathologist at the time the report is issued. As per the AJCC (Chapter 1, 8th Ed.) it is the managing physician's responsibility to establish the final pathologic stage based upon all pertinent information, including but potentially not limited to this pathology report. pT Category: pT2a pN Category: pN0 ADDITIONAL FINDINGS Additional Findings: Smoking-related changes 5 12:26 PM CDT [facility] COMMENT Special stain, immunohistochemical, and/or in situ hybridization results are interpreted with controls that demonstrate appropriate staining reactions. Note on use of immunohistochemistry reagents and in situ hybridization probes: These tests were developed and their performance characteristics determined by [facility], Department of Laboratory Medicine. It has not been cleared or approved by the U.S. Food and Drug Administration. The FDA has determined that such clearance or approval is not necessary. The test is used for clinical purposes. It should not be regarded as investigational or for research. This laboratory is certified to perform high complexity testing. Frozen section/operating room consultation, gross examination and dissection, and case sign out may have been performed in part or completely in the following laboratories: [facility], CLIA #[id number] [address] [place] [address] [facility], [place] #[id number] [address] [place] [address] [facility], [place] #[id number] [address] [place] [address] This report was created with the [employer] voice-activated dictation system. Inherent to this system is the possibility of syntax, grammar, punctuation and other errors that could impact the interpretation of the report. If there are interpretative questions about aspects of this report, please contact the performing pathologist. 12:26 PM CDT [facility] Tissue (Lymph nodes, left) Collection / Unknown 12/03/2024 8:36 AM CDT 12/04/2024 7:52 AM CDT Tissue specimen (specimen) (Lymph nodes, left) Collection / Unknown 12/03/2024 8:53 AM CDT 12/04/2024 7:52 AM CDT Tissue specimen (specimen) (Lymph nodes, left) 12/03/2024 10:00 AM CDT 12/04/2024 7:52 AM CDT Tissue specimen (specimen) (Lung, FADI) 12/03/2024 10:56 AM CDT 12/04/2024 7:52 AM CDT Mirza Morse MD PATHOLOGY/CYTOLOGY ORDERABLES Final Result [facility]# [id number] [address] [place] [address] * DE ANES INSERT CATH, ART, PERCUT, SHORTTERM (12/03/2024 7:48 AM CDT) Narrative hSahid Mayes AA-C - 12/03/2024 7:48 AM CDT Shahid Mayes AA-C 12/03/2024 7:48 AM Arterial Line Insertion Start Time: 12/03/2024 6:20 AM End Time: 12/03/2024 6:30 AM Patient location during procedure: Pre-op Staffing Performed: Anesthesiologist (/) and FRAME TENDER/CAA Authorized by: Shaun Phipps MD Performed by: Shahid Mayes AA-C time out called Patient was prepped and draped in usual sterile fashion Indications: hemodynamic monitoring Local Anesthetic: lidocaine 1% without epinephrine Anesthetic total: 1 mL Hand hygiene performed prior to procedure Preparation: skin prepped with alcohol Skin prep agent dried: skin prep agent completely dried prior to procedure Patient position: flat Location: right radial Seldinger technique used Catheter size: 20 G Catheter Length (in.): 1.25 Sigurd Identification: ultrasound guided Number of attempts: 1 Successful placement: yes Assessment: blood return through port Procedure uneventful Post-procedure: dressing applied and line secured Shaun Phipps MD PROCEDURE/MINOR SURG ICAL ORDERABLES Final Result * DE ANES INSERT ENDOTRACHEAL AIRWAY (12/03/2024 7:30 AM CDT) Narrative Shahid Mayes AA-C - 12/03/2024 7:30 AM CDT Shahid Mayes AA-C 12/03/2024 7:50 AM Airway Date/Time: 12/03/2024 7:30 AM Location: OR Plan: routine intubation Patient Identity Confirmed by: Verbally with patient and armband Airway: not difficult Staffing Performed: Anesthesiologist (/) and FRAME TENDER/CAA Authorized by: Shaun Phipps MD Performed by: Shahid Mayes AA-C Indications and Patient Condition: Indications for Airway Management: Anesthesia Sedation Level: general anesthesia Preoxygenated: yes Patient Position: Sniffing Mask Difficulty Assessment: 1 - vent by mask Plan to extubate at end of case: Yes Final Airway Details: Final Airway Type: Endotracheal airway ETT - double lumen left Cuffed: Yes Technique Used for Successful ETT Placement: Direct laryngoscopy Devices/Methods Used in Placement: Intubating stylet Blade Type: straight blade Blade Size: 2 Insertion Site: Oral ETT Double Lumen (fr): 37 Measured from: Teeth ETT to Teeth (cm): 27 Tube secured with: Tape Placement Verified by: auscultation, end tidal CO2 and chest rise Cormack-Lehane Classification: Grade I - full view of glottis Number of Attempts at Approach: 1 Additional Procedure Information: atraumatic and dentition unchanged Additional Comments: AZEEM placement confirmed via broncho performed by Dr. Phipps Shaun Phipps MD PROCEDURE/MINOR SURG ICAL ORDERABLES Edited Result - Final * TYPE AND SCREEN (12/03/2024 5:11 AM CDT) Only the most recent of2 resultswithin the time period is included. ABO GROUP A 12/03/2024 6:36 AM CDT [facility] -- [facility] RH (D) TYPE Positive 12/03/2024 6:36 AM CDT [facility] ANTIBODY SCREEN Negative 12/03/2024 6:36 AM CDT [facility] -- .ERIK Blood Venipuncture / Unknown 12/03/2024 5:11 AM CDT 12/03/2024 5:37 AM CDT us Mikal BARRETO BLOOD BANK ORDERABLES Edited Res ult - Final [facility] -- [facility] CLIA# [id number] [address] [facility] [place] [address] * XR CHEST PA AND LATERAL 2 VW (10/31/2024 12:40 PM CDT) Anatomical Region Laterality Modality Chest Computed Radiogr aphy 10/31/2024 12:4 0 PM CDT Impressions 10/31/2024 2:32 PM CDT IMPRESSION: 1. Aortic atherosclerosis. 2. No active disease. DICTATION LOCATION: Location 7 - [facility] Narrative 10/31/2024 2:32 PM CDT PA AND LATERAL CHEST DATE: 10/31/2024 12:40 PM CLINICAL HISTORY: Lung mass. Preoperative evaluation. FINDINGS: Examination of the chest in PA and lateral views demonstrates the lungs to be clear. The cardiovascular and mediastinal silhouettes are within normal limits for the patient's age. The aorta is atherosclerotic. The bony thorax is intact. INCIDENTAL FINDINGS: None. Procedure Note Kehinde Mantilla MD - 10/31/2024 PA AND LATERAL CHEST DATE: 10/31/2024 12:40 PM CLINICAL HISTORY: Lung mass. Preoperative evaluation. FINDINGS: Examination of the chest in PA and lateral views demonstrates the lungs to be clear. The cardiovascular and mediastinal silhouettes are within normal limits for the patient's age. The aorta is atherosclerotic. The bony thorax is intact. INCIDENTAL FINDINGS: None. IMPRESSION: 1. Aortic atherosclerosis. 2. No active disease. DICTATION LOCATION: Location [address] [place] [address] us Dacia BARRETO DIAGNOSTIC IMAGING ORDERABLES Final Result * EKG 12-LEAD (10/31/2024 12:09 PM CDT) 10/31/2024 12:0 9 PM CDT Narrative INTERFACE SYSTEM - 10/31/2024 11:59 [place] [address] Test Date: 2024-10-31 Pat Name: TRISH PATEL Department: 100 Room: Gender: Female Fishing Rod Trimmer: Maria Ines : 1955 Requested By: MIRZA MORSE Order Number: [id number] Reading MD: Kendall Pacheco Measurements Intervals Fountain Rate: 79 P: 61 DE: 131 QRS: 30 QRSD: 79 T: 66 QT: 360 QTc: 413 Interpretive Statements SINUS RHYTHM Electronically Signed On 10-31-2024 11:59:10 CDT by Kendall Pacheco Procedure Note Kendall Pacheco MD - 10/31/2024 [place] [address] Test Date: 2024-10-31 Pat Name: TRISH PATEL Department: 100 Room: Gender: Female Fishing Rod Trimmer: Maria Ines : 1955 Requested By: MIRZA MORSE Order Number: [id number] Reading MD: Kendall Pacheco Measurements Intervals Fountain Rate: 79 P: 61 DE: 131 QRS: 30 QRSD: 79 T: 66 QT: 360 QTc: 413 Interpretive Statements SINUS RHYTHM Electronically Signed On 10-31-2024 11:59:10 CDT by Kendall Pacheco us Dacia BARRETO ECG ORDERABLES Final Result INTERFACE SYSTEM Refer to clinic/hospital department * PTT (10/31/2024 11:59 AM CDT) PTT 30.4 24.4 - 36.4 seconds 10/31/2024 1:21 PM CDT [facility] Comment: PTT Therapeutic Range: Heparin Level PTT (seconds) <0.10 units/mL <55.8 0.10 - 0.30 units/mL 55.8 - 74.3 0.30 - 0.70 units/mL* 74.3 - 111.2* 0.70 - 1.00 units/mL 111.2 - 138.9 *corresponds to therapeutic range for unfractionated heparin Blood Venipuncture / Unknown 10/31/2024 11:59 AM CDT 10/31/2024 12:56 PM CDT us Dacia BARRETO HEMATOLOGY ORDERABLES Final R esult [facility]# [id number] [address] [place] [address] * PROTIME-INR (10/31/2024 11:59 AM CDT) PROTIME 13.6 12.7 - 15.1 Seconds 10/31/2024 1:21 PM CDT [facility] INR 1.0 0.9 - 1.1 10/31/2024 1:21 PM CDT [facility] Blood Venipuncture / Unknown 10/31/2024 11:59 AM CDT 10/31/2024 12:56 PM CDT Narrative [facility] - 10/31/2024 1:21 PM CDT INR Therapeutic Range: Adult: 2.0 - 3.0 for pulmonary embolism or prophylaxis against venous thrombosis or systemic embolization. 2.0 - 3.0 for patients with tissue heart valves. 2.5 - 3.5 for patients with mechanical heart valves or post TX. Pediatric (12 years and under): 1.5 - 3.0 Although the target range in children is not well established, INR values of 1.5 - 3.0 are recommended for most patients. Higher values have been used in children with prosthetic cardiac valves and hereditary clotting disorders. (<3 days) therapeutic ranges have not been established. Dacia BARRETO HEMATOLOGY ORDERABLES Final R esult Performing Organization Address City/[facility]/ZIP Co de Phone Number [facility] [employer] [facility]# [id number] [address] [place] [address] * (ABNORMAL) HEMOGLOBIN A1C (10/31/2024 11:59 AM CDT) HEMOGLOBIN A1C 6.7(H) <5.7 % 10/31/2024 1:22 PM CDT [facility] EST. AVG GLUCOSE, A1C 146 mg/dL 10/31/2024 1:22 PM CDT [facility] Blood Venipuncture / Unknown 10/31/2024 11:59 AM CDT 10/31/2024 12:56 PM CDT Narrative [employer] [facility] - 10/31/2024 1:22 PM CDT HGB A1C INTERPRETATION NORMAL: <5.7% PRE-DIABETES: 5.7 - 6.4% DIABETES: 6.5% OR GREATER Brittany Salazar INTERPRETER AND TRANSLATOR CHEMISTRY ORDERABLES Vannessa l Result Performing Organization Address [facility] Co de Phone Number [facility] [employer] [facility]# [id number] [address] [place] [address] * (ABNORMAL) COMPREHENSIVE METABOLIC PANEL (10/31/2024 11:59 AM CDT) SODIUM 137 136 - 145 mmol/L 10/31/2024 1:34 PM CDT [facility] POTASSIUM 4.5 3.5 - 5.0 mmol/L 10/31/2024 1:34 PM CDT [facility] CHLORIDE 101 98 - 107 mmol/L 10/31/2024 1:34 PM CDT [facility] CO2 23 22 - 29 mmol/L 10/31/2024 1:34 PM [facility] CALCIUM 9.6 8.6 - 10.2 mg/dL 10/31/2024 1:34 PM [facility] BUN 25(H) 8 - 23 mg/dL 10/31/2024 1:34 PM [facility] CREATININE 1.11(H) 0.51 - 0.95 mg/dL 10/31/2024 1:34 PM [facility] GLUCOSE 153(H) 74 - 99 mg/dL 10/31/2024 1:34 PM [facility] TOTAL PROTEIN 7.2 6.7 - 8.6 g/dL 10/31/2024 1:34 PM [facility] ALBUMIN 4.5 3.5 - 5.2 g/dL 10/31/2024 1:34 PM [facility] BILIRUBIN TOTAL 0.4 0.0 - 1.1 mg/dL 10/31/2024 1:34 PM [facility] ALKALINE PHOSPHATASE 85 35 - 104 U/L 10/31/2024 1:34 PM [facility] AST 33(H) <33 U/L 10/31/2024 1:34 PM [facility] ALT 21 <34 U/L 10/31/2024 1:34 PM [facility] GFR 54(L) >=60 mL/min/1.7 3 sq meter 10/31/2024 1:34 PM [facility] Comment:eGFR calculated with 2020 CKD-EPI equation. Vegetarian diet, extremely high or low muscle mass, and may affect results. Cystatin C with Glomerular Filtration Rate is a suitable alternative for these patients. ANION GAP 13 8 - 16 mmol/L 10/31/2024 1:34 PM [facility] Blood Venipuncture / Unknown 10/31/2024 11:59 AM CDT 10/31/2024 12:56 PM [facility] - 10/31/2024 1:34 PM CDT Samples containing indocyanine green cause interferences on Total and/or Direct Bilirubin and must not be measured. us Dacia BARRETO CHEMISTRY ORDERABLES Final Re sult [facility] CLIA# [id number] [address] [place] [address] * CT PRIOR STUDY (10/31/2024 9:51 AM CDT) Only the most recent of2 resultswithin the time period is included. Narrative [facility] - 10/31/2024 9:51 AM CDT This exam was auto finalized to allow images to be scanned to PACS. us Mirza Morse MD CT ORDERABLES Final Result Performing Organization Address City/[facility]/ZIP Co de Phone Number [facility] * PET PRIOR STUDY (10/31/2024 9:51 AM CDT) [facility] - 10/31/2024 9:51 AM CDT This exam was auto finalized to allow images to be scanned to PACS. us Mirza Morse MD US ORDERABLES Final Result [facility] from Last 3 Months Insurance [facility] [id number] [facility] [id number] RX [employer] Member Subscriber Plan / Payer (Ef fective 2023-Present) Name:Trish Patel Relation to Subscriber:Self Name:Trish Patel Payer ID:Not on file Group ID:[id number] Type:RX Medicare Part D Address: [place] Advance Directives For more information, please contact: [phone] * Full Code (Latest Code Status on File) Date Activated Date Inactivated Comments 12/03/2024 1:40 PM 12/05/2024 8:41 PM * Full Code Date Activated Date Inactivated Comments 12/03/2024 5:10 AM 12/03/2024 1:40 PM Care Teams Spinning 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 [address] PCP - General Family Practice 03/15/22
--- OUTSIDE RECORDS SUMMARY | 2025-01-30 12:18 | XMS_ITS | Clinical Summary ---
Author Organization [facility] Address [address] [place] [address] Care Team Providers Care X Ray Examiner Of Aircraft Name Role Phone Unavailable Primary Care Provider Unavailabl e Encounters Date Type Department Care Team Description 11/21/2024 Telephone [facility], [address] [address] Ranjan Cook MD Advice from Last 3 Months Social History Tobacco Use Types Packs/Day Years Used Date Smoking Tobacco: Never Assessed Comments Unknown Sex and Gender Information Value Date Recorded Sex Assigned at Not on file Legal Sex Female 2:28 PM CDT Gender Identity Not on file Sexual Orientation Not on file Plan of Treatment Health Maintenance Due Date Last Done Comments Colorectal Cancer Screening Colonoscopy (10 Years) 1955 Hepatitis C 08/08/1973 DTaP, Tdap and Td Vaccines ( 1 - Tdap) 08/08/1974 Mammogram Screening 1995 Pneumococcal Vaccine: 50+ Ye ars (1 of 1 - PCV) 08/08/2005 Zoster Vaccines (1 of 2) 08/08/2005 Annual Medicare Wellness Visit 08/08/2020 Dexa Scan (General) 08/08/2020 COVID-19 Vaccine (1 - 2024-2 6 season) 2024 Influenza Adult (#1) 2024 RSV Immunization or 60+ Years (1 - 1-dose 75+ series) 08/08/2030 Hepatitis A Vaccines Aged Out No long er eligible based on patient's age to complete this topic Meningococcal B Vaccine Aged Out No l onger eligible based on patient's age to complete this topic Meningococcal Vaccine Aged Out No catie vasiliy eligible based on patient's age to complete this topic RSV Immunizations Under 20 Months Aged Out No longer eligible based on patient's age to complete this topic Insurance [facility] MEDICARE MEDICARE Member Subscriber Plan / Payer ( fective 2024-2025) Name:Trish Patel R Relation to Subscriber:Self Name:Trish Patel Payer ID:[id number] (NAIC) Type:Not on file Address: [place] [phone]
[2025-01-30 12:22] LABS: Iron 91 ug/dL (37-170)
[2025-01-30 12:28] LABS: Alanine Aminotransferase 23 U/L (6-35); Albumin Level 4.3 g/dL (3.5-5.1); Alkaline Phosphatase 76 U/L (38-126); Anion Gap 6 mmol/L (4-12); Aspartate Amino Transferase 34 U/L (14-36); Bilirubin,Total 0.5 mg/dL (0.2-1.3); Blood Urea Nitrogen 25 mg/dL (7-17); Calcium 8.8 mg/dL (8.4-10.2); Carbon Dioxide 26 mmol/L (22-30); Chloride 103 mmol/L (98-107); Cholesterol 124 mg/dL (0-200); Estimated Glomerular Filt Rate 47; Glucose 265 mg/dL (65-110); HDL Direct 50 mg/dL; Potassium 4.6 mmol/L (3.4-5.0); Sodium 135 mmol/L (137-145); Total Protein 7.1 g/dL (6.3-8.2); Triglycerides 134 mg/dL (<150)
[2025-01-30 12:32] LABS: MALB Creatinine Ratio < 19.2 mg/g (0-30)
[2025-01-30 12:32] LABS: Percent Iron Saturation 25 % (20-50)
[2025-01-30 12:42] LABS: Free T4 Free Thyroxine 0.89 ng/dL (0.78-2.19)
[2025-01-30 13:03] LABS: Thyroid Stimulating Hormone 1.910 uIU/mL (0.465-4.680)
[2025-01-30 13:06] LABS: Ferritin 15.90 ng/mL (11.1-264)
[2025-01-30 13:22] LABS: Vitamin B12 955.0 pg/mL (239-931)
== END 2025-01-30 10:45 | disposition home or self-care (01) ==
LOC: ANHLAB 10:45
PROVIDERS: PCP Family Medicine; Referring Provider Nurse Practitioner Family; Visit Provider Internal Medicine Hematology & Oncology
DX: E56.9 Vitamin deficiency, unspecified (principal); E11.65 Type 2 diabetes mellitus with hyperglycemia; Z79.4 Long term (current) use of insulin; E78.2 Mixed hyperlipidemia; I10 Essential (primary) hypertension
CPT/HCPCS: 36415; 80053; 80061; 82043; 82306; 82607; 82728; 83540; 83550; 84439; 84443; 85027; 85055